=== PATIENT | female | born 1960 | race Caucasian/White ===

== ENCOUNTER 2016-09-12 18:55 | Emergency (ER) | payer MEDICARE, OTHER ==
[2016-09-12 19:12] VITALS: BP 130/69; PULSE 79; TEMP 98.5; BMI 26.2
[2016-09-12 20:07] LABS: BASOPHIL 1.1 % (0-2.0); EOSINOPHIL 1.5 % (0-4.5); MCH 30.4 pg (25.7-33.7); MCHC 33.7 g/dl (32.0-36.0); MEAN CELL VOLUME 90.1 fl (80-96); MEAN PLT VOLUME 9.1 fl (7.5-11.1); PLATELET COUNT 212 K/MM3 (134-434); RDW 14.3 % (11.6-15.6); WHITE BLOOD COUNT 6.7 K/mm3 (4.0-10.0)
[2016-09-12 20:08] LABS: URINE APPEARANCE CLEAR; URINE BILIRUBIN NEGATIVE (NEGATIVE); URINE BLOOD NEGATIVE (NEGATIVE); URINE COLOR COLORLESS; URINE GLUCOSE (UA) NEGATIVE (NEGATIVE); URINE KETONE NEGATIVE (NEGATIVE); URINE LEUK ESTERASE NEGATIVE (NEGATIVE); URINE NITRITE NEGATIVE (NEGATIVE); URINE PROTEIN NEGATIVE (NEGATIVE); URINE UROBILINOGEN NEGATIVE E.U./dl (0.2-1.0)
[2016-09-12] MEDS ORDERED: METOCLOPRAMIDE HCL INJECTION 10 MG/2 ML VIAL IVPB ONE (20:12)
[2016-09-12] MEDS ORDERED: SODIUM CHLORIDE 0.9% 1000 ML INFUS.BAG IV ONE (20:12)
[2016-09-12] MEDS ORDERED: KETOROLAC TROMETHAMINE 30 MG/1 ML VIAL IVPUSH ONE (20:12)
[2016-09-12] MEDS ORDERED: KETOROLAC TROMETHAMINE 30 MG/1 ML VIAL ONE (20:21)
[2016-09-12] MEDS ORDERED: METOCLOPRAMIDE HCL INJECTION 10 MG/2 ML VIAL ONE (20:21)
[2016-09-12 20:24] LABS: ALBUMIN 3.8 g/dl (3.4-5.0); ALK PHOS 83 U/L (45-117); ANION GAP 8 (8-16); BILIRUBIN,TOTAL 0.3 mg/dL (0.2-1.0); CALCIUM 9.2 mg/dL (8.5-10.1); CO2 27 mmol/L (21-32); CREATININE 0.7 mg/dL (0.55-1.02); GLUCOSE,RANDOM 94 mg/dL (74-106); SGOT/AST 18 U/L (15-37); SGPT/ALT 23 U/L (12-78); TOT PROT 6.8 g/dl (6.4-8.2)
--- NOTE | 2016-09-12 20:28 | PDOC ---
History of Present Illness - General Chief Complaint: Migraine Headache Stated Complaint: MIGRAINE HEADACHE Time Seen by Provider: 09/12/16 19:39 History Source: Patient Exam Limitations: No Limitations - History of Present Illness Initial Comments: 09/12/16 20:26 Patient is a 56-year-old female with history of hernia, migraine, GERD, BTL, complains of right-sided headache since last night. Currently the pain is 10/10 , throbbing, right retro-orbital radiates but was gradual onset after having a stressful event last night. Now has nausea, photophobia, phonophobia. Describes symptoms as her typical migraine. She took her Firocet at 7 PM today and 2 PM without relief of symptoms. PMD: Dr. Mercedes PMHX: as above PSocHX: Negative drugs, alcohol, cigarettes PFamHX: Noncontributory to this exam ALL: Flexeril GENERAL/CONSTITUTIONAL: [No fever or chills. No weakness. No weight change.] HEAD, EYES, EARS, NOSE AND THROAT: [No change in vision. No ear pain or discharge. No sore throat.] CARDIOVASCULAR: [No chest pain or shortness of breath.] RESPIRATORY: [No cough, wheezing, or hemoptysis.] GASTROINTESTINAL: (+) nausea, (-) vomiting, diarrhea or constipation. No rectal bleeding.] GENITOURINARY: [No dysuria, frequency, or change in urination.] MUSCULOSKELETAL: [No joint or muscle swelling or pain. No neck or back pain.] SKIN AND BREASTS: [No rash or easy bruising.] NEUROLOGIC: (+) headache, (+) vertigo, (-) loss of consciousness, or loss of sensation.] PSYCHIATRIC: [No depression or anxiety.] ENDOCRINE: [No increased thirst. No abnormal weight change.] HEMATOLOGIC/LYMPHATIC: [No anemia, easy bleeding, or history of blood clots.] ALLERGIC/IMMUNOLOGIC: [No hives or skin allergy. No latex allergy.] GENERAL: [The patient is awake, alert, and fully oriented, in no acute distress. ] HEAD: [Normal with no signs of trauma.] EYES: [Pupils equal, round and reactive to light, extraocular movements intact, sclera anicteric, conjunctiva clear.] ENT: [Ears normal, nares patent, oropharynx clear without exudates. Moist mucous membranes.] NECK: [Normal range of motion, supple without lymphadenopathy, JVD, or masses.] LUNGS: [Breath sounds equal, clear to auscultation bilaterally. No wheezes, and no crackles.] HEART: [Regular rate and rhythm, normal S1 and S2 without murmur, rub.] ABDOMEN: [Soft, nontender, normoactive bowel sounds. No guarding, no rebound. No masses.] EXTREMITIES: [Normal range of motion, no edema. No clubbing or cyanosis. No cords, erythema, or tenderness.] NEUROLOGICAL: [Cranial nerves II through XII grossly intact. Normal speech, normal gait, cerebellar function intact, nl finger to nose, 5/5 strength] PSYCH: [Normal mood, normal affect.] SKIN: [Warm, Dry, normal turgor, no rashes or lesions noted.] Past History - Past Medical History Allergies/Adverse Reactions: Allergies Allergy/AdvReac Type Severity Reaction Status Date / Time cyclobenzaprine HCl Allergy Severe near Verified 09/12/16 19:08 [From Flexeril] syncope Home Medications: Ambulatory Orders Acetaminophen/Caffeine/Butalb [Fioricet -] 1 tab PO Q6H PRN #20 tablet 10/20/15 Omeprazole 20 mg PO DAILY 03/13/16 Anemia: Yes Asthma: Yes Cancer: No Cardiac Disorders: Yes (ANGINA) CVA: No COPD: No CHF: No Dementia: No Diabetes: No GI Disorders: Yes (hiatal hernia,GASTRITIS, ulcer) Disorders: No HTN: No Hypercholesterolemia: No Liver Disease: No Suicide Attempt (Hx): No Seizures: No Thyroid Disease: No - Surgical History Abdominal Surgery: Yes (hernia) Appendectomy: No Cardiac Surgery: No Cholecystectomy: No Lung Surgery: No Neurologic Surgery: No Orthopedic Surgery: No - Immunization History Td Vaccination: Yes TDAP Vaccination: No Immunization Up to Date: Yes - Psycho/Social/Smoking Cessation Hx Anxiety: No Suicidal Ideation: No Smoking Status: No Smoking History: Never smoked Years of Tobacco Use: 0 Have you smoked in the past 12 months: No Number of Cigarettes Smoked Daily: 0 Cigars Per Day: 0 Hx Alcohol Use: No Drug/Substance Use Hx: No Substance Use Type: None Hx Substance Use Treatment: No Neuro Specific PMHX - Complaint Specific PMHX Migraine: Yes *Physical Exam - Vital Signs Last Vital Signs Temp Pulse Resp BP Pulse Ox 98.5 F 79 18 130/69 98 09/12/16 19:10 09/12/16 19:10 09/12/16 19:10 09/12/16 19:10 09/12/16 19:10 ED Treatment Course - LABORATORY CBC & Chemistry Diagram: 09/12/16 19:50 09/12/16 19:50 - ADDITIONAL ORDERS Additional order review: Laboratory Results 09/12/16 19:20 Urine Color Colorless Urine Appearance Clear Urine pH 6.0 Ur Specific [place] 1.003 Urine Protein Negative Urine Glucose (UA) Negative Urine Ketones Negative Urine Blood Negative Urine Nitrite Negative Urine Bilirubin Negative Urine Urobilinogen Negative Ur Leukocyte Esterase Negative 09/12/16 19:50 RBC 4.41 MCV 90.1 MCHC 33.7 RDW 14.3 MPV 9.1 Neutrophils % 65.0 Lymphocytes % 26.1 Monocytes % 6.3 Eosinophils % 1.5 Basophils % 1.1 - Medications Given in the ED: ED Medications Discontinued Medications Generic Name Dose Route Start Last Admin Trade Name Michelle PRN Reason Stop Dose Admin Ketorolac Tromethamine 30 mg 09/12/16 20:12 09/12/16 20:19 Toradol Injection - IVPUSH 09/12/16 20:13 30 mg ONCE ONE Administration Metoclopramide HCl 10 mg 09/12/16 20:12 09/12/16 20:19 Reglan Injection - IVPB 09/12/16 20:13 10 mg ONCE ONE Administration Sodium Chloride 1,000 ml 09/12/16 20:12 09/12/16 20:19 Normal Saline - IV 09/12/16 20:13 1,000 ml ONCE ONE Administration Medical Decision Making - Medical Decision Making 09/12/16 20:44 Patient is a 56-year-old female with history of hernia, migraine, GERD, BTL, complains of right-sided headache since last night, describes as typical migraine symptoms will treat as such with Toradol 30 mg IV, Reglan 10 mg IV, IV fluids 09/12/16 21:40 Patient states symptoms are totally resolved and wishes to go home. neurologically intact I discussed the physical exam findings, ancillary test results and final diagnoses with the patient. I answered all of the patient's questions. The patient was satisfied with the care received and felt comfortable with the discharge plan and treatment plan. The Patient agrees to follow up with the primary care physician within 24-72 hours. *DC/Admit/Observation/Transfer Diagnosis at time of Disposition: Migraine Qualifiers: Migraine type: unspecified Status migrainosus presence: with status migrainosus Intractability: not intractable Qualified Code(s): G43.901 - Migraine, unspecified, not intractable, with status migrainosus - Discharge Dispostion Disposition: HOME Condition at time of disposition: Stable - Referrals Referrals: Rivera Mercedes MD [Primary Care Provider] - - Patient Instructions Printed Discharge Instructions: DI for Migraine Additional Instructions: Your Discharge Instructions: You must call primary care physician within 24 hours to arrange follow-up. Return to the Emergency Department with any new, persistent or worsening symptoms, for fever, chills, SOB, dizziness or any other concerning changes that may occur.
--- NOTE | 2016-09-12 21:13 | PDOC ---
*Physical Exam - Vital Signs Last Vital Signs Temp Pulse Resp BP Pulse Ox 98.5 F 79 18 130/69 98 09/12/16 19:10 09/12/16 19:10 09/12/16 19:10 09/12/16 19:10 09/12/16 19:10 ED Treatment Course - LABORATORY CBC & Chemistry Diagram: 09/12/16 19:50 09/12/16 19:50 - ADDITIONAL ORDERS Additional order review: Laboratory Results 09/12/16 09/12/16 19:50 19:20 Sodium 142 Potassium 4.3 Chloride 107 Carbon Dioxide 27 Anion Gap 8 BUN 12 Creatinine 0.7 Creat Clearance w eGFR > 60 Random Glucose 94 Calcium 9.2 Total Bilirubin 0.3 D AST 18 ALT 23 D Alkaline Phosphatase 83 D Total Protein 6.8 Albumin 3.8 Urine Color Colorless Urine Appearance Clear Urine pH 6.0 Ur Specific [place] 1.003 Urine Protein Negative Urine Glucose (UA) Negative Urine Ketones Negative Urine Blood Negative Urine Nitrite Negative Urine Bilirubin Negative Urine Urobilinogen Negative Ur Leukocyte Esterase Negative 09/12/16 19:50 RBC 4.41 MCV 90.1 MCHC 33.7 RDW 14.3 MPV 9.1 Neutrophils % 65.0 Lymphocytes % 26.1 Monocytes % 6.3 Eosinophils % 1.5 Basophils % 1.1 - Medications Given in the ED: ED Medications Discontinued Medications Generic Name Dose Route Start Last Admin Trade Name Davidq PRN Reason Stop Dose Admin Ketorolac Tromethamine 30 mg 09/12/16 20:12 09/12/16 20:19 Toradol Injection - IVPUSH 09/12/16 20:13 30 mg ONCE ONE Administration Metoclopramide HCl 10 mg 09/12/16 20:12 09/12/16 20:19 Reglan Injection - IVPB 09/12/16 20:13 10 mg ONCE ONE Administration Sodium Chloride 1,000 ml 09/12/16 20:12 09/12/16 20:19 Normal Saline - IV 09/12/16 20:13 1,000 ml ONCE ONE Administration Medical Decision Making - Medical Decision Making 09/12/16 21:12 agree with care from ALEX Cochran *DC/Admit/Observation/Transfer Diagnosis at time of Disposition: Migraine - Discharge Dispostion Disposition: HOME Condition at time of disposition: Stable - Referrals Referrals: Mercedes,Rivera R, MD [Primary Care Provider] - - Patient Instructions Printed Discharge Instructions: DI for Migraine Additional Instructions: Your Discharge Instructions: You must call primary care physician within 24 hours to arrange follow-up. Return to the Emergency Department with any new, persistent or worsening symptoms, for fever, chills, SOB, dizziness or any other concerning changes that may occur.
== END 2016-09-12 21:45 | disposition home or self-care (01) ==
LOC: JER 18:55
PROC: 3E033GC Introduction of Other Therapeutic Substance into Peripheral Vein, Percutaneous Approach (ICD-10-PCS; principal; 2016-09-12)
PROC: 3E0333Z Introduction of Anti-inflammatory into Peripheral Vein, Percutaneous Approach (ICD-10-PCS; 2016-09-12)
DX: G43.901 Migraine, unspecified, not intractable, with status migrainosus (principal)
CPT/HCPCS: 36415; 80053; 81003; 85025; 96374; 96375; 99282-25

== ENCOUNTER 2016-09-30 11:26 | Emergency (ER) | payer MEDICARE, OTHER ==
[2016-09-30 11:42] VITALS: BP 120/77; PULSE 93; TEMP 98; BMI 25.5
[2016-09-30] MEDS ORDERED: FAMOTIDINE 20 MG/50 ML IVPB 50 ML IVPB ONE (13:33)
[2016-09-30] MEDS ORDERED: SODIUM CHLORIDE 1,000 ML IV STA (13:33)
[2016-09-30] MEDS ORDERED: ONDANSETRON 4 MG/2 ML VIAL IVPUSH ONE (13:33)
--- NOTE | 2016-09-30 13:34 | PDOC ---
History of Present Illness - General History Source: Patient Exam Limitations: No Limitations - History of Present Illness Initial Comments: CHIEF COMPLAINT: 56 y/o afebrile female with PMH GI ulcer (healed), migraine HAs c/o abdominal pain since last night. HISTORY OF PRESENT ILLNESS: The patient states last night she began having abdominal pain. She admits to nausea and multiple episodes of diarrhea. She did take her Omeprazole which seemed to help a little bit. She denies fever, chills, cough, runny nose, vomiting, CP, SOB, back pain, hematuria, dysuria. Vital signs on arrival are within normal limits. REVIEW OF SYSTEMS: GENERAL/CONSTITUTIONAL: No fever/chills. No weakness. No weight change. HEAD, EYES, EARS, NOSE AND THROAT: No change in vision. No ear pain or discharge. No sore throat. CARDIOVASCULAR: No chest pain or shortness of breath. RESPIRATORY: No cough, wheezing, or hemoptysis. GASTROINTESTINAL: +nausea, diarrhea and abd pain. No vomiting. GENITOURINARY: No dysuria, frequency, or change in urination. MUSCULOSKELETAL: No joint or muscle swelling or pain. No neck or back pain. SKIN: No rash or easy bruising. NEUROLOGIC: No headache, vertigo, loss of consciousness, or loss of sensation. PHYSICAL EXAM: GENERAL: The patient is awake, alert, and fully oriented, in no acute distress. She is well appearing and ambulatory. HEAD: Normal with no signs of trauma. ENT: Pupils equal, round and reactive to light, extraocular movements intact, sclera anicteric, conjunctiva clear. Neck supple. LUNGS: Clear to auscultation bilaterally. Normal excursion. No respiratory distress or use of accessory muscles. CV: RRR, S1/S2, no MRG. Cap refill < 2 sec. ABDOMEN: Soft, non-distended, TTP of RUQ with positive Morales's sign. No rebound, guarding, rigidity. EXTREMITIES: Normal range of motion, no edema. NEUROLOGICAL: Normal speech, normal gait. CN II-XII grossly intact. PSYCH: Normal mood, normal affect. SKIN: Warm, dry, normal turgor, no rashes or lesions noted. <Lilian Garner - Last Filed: 09/30/16 16:07> <Jamee Mckenna - Last Filed: 10/01/16 15:19> - General Chief Complaint: Pain Stated Complaint: ABD PAIN Time Seen by Provider: 09/30/16 13:11 Past History - Past Medical History Anemia: Yes Asthma: Yes Cancer: No Cardiac Disorders: Yes (ANGINA) CVA: No COPD: No CHF: No Dementia: No Diabetes: No GI Disorders: Yes (hiatal hernia,GASTRITIS, ulcer) Disorders: No HTN: No Hypercholesterolemia: No Liver Disease: No Suicide Attempt (Hx): No Seizures: No Thyroid Disease: No - Surgical History Abdominal Surgery: Yes (hernia) Appendectomy: No Cardiac Surgery: No Cholecystectomy: No Lung Surgery: No Neurologic Surgery: No Orthopedic Surgery: No - Immunization History Td Vaccination: Yes TDAP Vaccination: No Immunization Up to Date: Yes - Psycho/Social/Smoking Cessation Hx Anxiety: No Suicidal Ideation: No Smoking Status: No Smoking History: Never smoked Years of Tobacco Use: 0 Have you smoked in the past 12 months: No Number of Cigarettes Smoked Daily: 0 Cigars Per Day: 0 Information on smoking cessation initiated: No Hx Alcohol Use: No Drug/Substance Use Hx: No Substance Use Type: None Hx Substance Use Treatment: No <Lilian Garner - Last Filed: 09/30/16 16:07> <Jamee Mckenna - Last Filed: 10/01/16 15:19> - Past Medical History Allergies/Adverse Reactions: Allergies Allergy/AdvReac Type Severity Reaction Status Date / Time cyclobenzaprine HCl Allergy Severe near Verified 09/30/16 11:38 [From Flexeril] syncope Home Medications: Ambulatory Orders Acetaminophen/Caffeine/Butalb [Fioricet -] 1 tab PO Q6H PRN #20 tablet 10/20/15 Omeprazole 40 mg PO DAILY 03/13/16 Famotidine [Pepcid -] 20 mg PO BID #14 tablet 09/30/16 Sucralfate [Carafate -] 1 gm PO QID #28 tablet 09/30/16 *Physical Exam - Vital Signs Last Vital Signs Temp Pulse Resp BP Pulse Ox 98.0 F 93 H 18 120/77 98 09/30/16 11:39 09/30/16 11:39 09/30/16 11:39 09/30/16 11:39 09/30/16 11:39 <Lilian Garner - Last Filed: 09/30/16 16:07> - Vital Signs Last Vital Signs Temp Pulse Resp BP Pulse Ox 98.0 F 93 H 18 120/77 98 09/30/16 11:39 09/30/16 11:39 09/30/16 11:39 09/30/16 11:39 09/30/16 11:39 <Jamee Mckenna - Last Filed: 10/01/16 15:19> ED Treatment Course - LABORATORY CBC & Chemistry Diagram: 09/30/16 13:49 09/30/16 13:49 <Lilian Garner - Last Filed: 09/30/16 16:07> - LABORATORY CBC & Chemistry Diagram: 09/30/16 13:49 09/30/16 13:49 - ADDITIONAL ORDERS Additional order review: 09/30/16 13:49 RBC 4.63 MCV 91.1 MCHC 33.4 RDW 14.3 MPV 8.7 Neutrophils % 90.9 H D Lymphocytes % 5.1 L D Monocytes % 3.1 L Eosinophils % 0.4 Basophils % 0.5 - Medications Given in the ED: ED Medications Discontinued Medications Generic Name Dose Route Start Last Admin Trade Name Freq PRN Reason Stop Dose Admin Famotidine/Sodium Chloride 50 mls @ 100 mls/hr 09/30/16 13:33 09/30/16 14:03 Pepcid 20 Mg Premixed Ivpb - IVPB 09/30/16 14:02 100 mls/hr ONCE ONE Administration Sodium Chloride 1,000 mls @ 1,000 mls/hr 09/30/16 13:33 09/30/16 14:03 Normal Saline - IV 09/30/16 14:32 1,000 mls/hr ASDIR STA Administration Ondansetron HCl 4 mg 09/30/16 13:33 09/30/16 14:03 Zofran Injection IVPUSH 09/30/16 13:34 4 mg ONCE ONE Administration <Jamee Mckenna - Last Filed: 10/01/16 15:19> Medical Decision Making - Medical Decision Making A/P: 56 y/o afebrile female with possible gallstones/cholecystitis. Plan is as follows: 1. Labs 2. IV fluids 3. Gallbladder ultrasound 4. IV toradol 5. IV zofran 6. IV pepcid Gallbladder ultrasound IMPRESSION: No sonographic evidence of acute biliary pathology. Labs unremarkable. The patient states she feels much better and wants to go home. She states it was pain similar to when she had an ulcer in the past. Will d/c to home with rx for pepcid and carafate. She has an appointment scheduled to see Dr. Pérez in October which I strongly encouraged her to keep. Suggested she return to the ER immediately with any worsening or concerning symptoms. The patient verbalizes understanding of all instructions, has no further questions and is awaiting discharge. <Lilian Garner - Last Filed: 09/30/16 16:07> *DC/Admit/Observation/Transfer <Lilian Garner - Last Filed: 09/30/16 16:07> - Attestations Physician Attestion: I reviewed the case with the mid-level practitioner and agree with the mid- level practitioner's assessment, diagnosis and disposition. <Jamee Mckenna - Last Filed: 10/01/16 15:19> Diagnosis at time of Disposition: Right upper quadrant abdominal pain, Nausea Diarrhea Qualifiers: Diarrhea type: unspecified type Qualified Code(s): R19.7 - Diarrhea, unspecified - Discharge Dispostion Disposition: HOME Condition at time of disposition: Improved - Prescriptions Prescriptions: Sucralfate [Carafate -] 1 gm PO QID #28 tablet Famotidine [Pepcid -] 20 mg PO BID #14 tablet - Referrals Referrals: Rivera Mercedes MD [Primary Care Provider] - Deepak Pérez MD [Staff Physician] - (Keep your appointment scheduled for October) - Patient Instructions Printed Discharge Instructions: DI for Abdominal Pain-Adult Additional Instructions: Discharge Instructions: -Take medications as prescribed -Keep your appointment with Dr. Pérez scheduled for October -Return to the ER with any worsening or concerning symptoms.
[2016-09-30 13:52] LABS: BASOPHIL 0.5 % (0-2.0); EOSINOPHIL 0.4 % (0-4.5); MCH 30.4 pg (25.7-33.7); MCHC 33.4 g/dl (32.0-36.0); MEAN CELL VOLUME 91.1 fl (80-96); MEAN PLT VOLUME 8.7 fl (7.5-11.1); NEUTROPHILS 90.9 % (42.8-82.8); PLATELET COUNT 176 K/MM3 (134-434); RDW 14.3 % (11.6-15.6); WHITE BLOOD COUNT 9.4 K/mm3 (4.0-10.0)
[2016-09-30 14:10] LABS: URINE APPEARANCE CLEAR; URINE BILIRUBIN NEGATIVE (NEGATIVE); URINE BLOOD NEGATIVE (NEGATIVE); URINE COLOR YELLOW; URINE GLUCOSE (UA) NEGATIVE (NEGATIVE); URINE KETONE NEGATIVE (NEGATIVE); URINE LEUK ESTERASE NEGATIVE (NEGATIVE); URINE NITRITE NEGATIVE (NEGATIVE); URINE UROBILINOGEN NEGATIVE E.U./dl (0.2-1.0)
[2016-09-30 14:14] LABS: URINE PROTEIN 1+ (NEGATIVE)
[2016-09-30 14:18] LABS: ALBUMIN 3.8 g/dl (3.4-5.0); ALK PHOS 65 U/L (45-117); ANION GAP 10 (8-16); BILIRUBIN,TOTAL 0.5 mg/dL (0.2-1.0); CALCIUM 8.6 mg/dL (8.5-10.1); CO2 27 mmol/L (21-32); CREATININE 0.9 mg/dL (0.55-1.02); GLUCOSE,RANDOM 152 mg/dL (74-106); SGOT/AST 17 U/L (15-37); SGPT/ALT 24 U/L (12-78); TOT PROT 7.2 g/dl (6.4-8.2)
[2016-09-30 14:23] LABS: URINE BACTERIA RARE /hpf (NONE SEEN); URINE HYALINE CAST 6 /lpf; URINE MUCUS MODERATE; URINE RBC 2 /hpf (0-3); URINE WBC 2 /hpf (3-5)
== END 2016-09-30 16:35 | disposition home or self-care (01) ==
LOC: JER 11:26
PROC: 3E033GC Introduction of Other Therapeutic Substance into Peripheral Vein, Percutaneous Approach (ICD-10-PCS; principal; 2016-09-30)
DX: R10.11 Right upper quadrant pain (principal); R11.0 Nausea; R19.7 Diarrhea, unspecified; G43.909 Migraine, unspecified, not intractable, without status migrainosus; Z86.79 Personal history of other diseases of the circulatory system; Z87.19 Personal history of other diseases of the digestive system
CPT/HCPCS: 36415; 76705-TC; 80053; 81003; 81015; 83690; 85025; 87086; 96365; 96375; 99283-25

== ENCOUNTER 2016-12-30 09:50 | Emergency (ER) | payer MEDICARE, OTHER ==
[2016-12-30 10:00] VITALS: BP 111/60; PULSE 74; TEMP 98.2; BMI 21.9
--- NOTE | 2016-12-30 11:04 | PDOC ---
History of Present Illness - General Chief Complaint: Pain Stated Complaint: LT THUMB PAIN Time Seen by Provider: 12/30/16 10:22 History Source: Patient Exam Limitations: No Limitations - History of Present Illness Initial Comments: 12/30/16 15:30 states 3 weeks ago fell and hyperextended left thumb. States is been painful since that time. Denies numbness or tingling to hand although feels that has weakness and mild instability to grasp mechanism. Has not sought any medical attention for same. Occurred: reports: just prior to arrival Severity: reports: mild, moderate Pain Location: reports: upper extremity (left thumb/hand) Associated Symptoms (Fall): denies symptoms Past History - Travel Traveled outside of the country in the last 30 days: No Close contact w/someone who was outside of country & ill: No - Past Medical History Allergies/Adverse Reactions: Allergies Allergy/AdvReac Type Severity Reaction Status Date / Time cyclobenzaprine HCl Allergy Severe near Verified 12/30/16 09:57 [From Flexeril] syncope Home Medications: Ambulatory Orders Acetaminophen/Caffeine/Butalb [Fioricet -] 1 tab PO Q6H PRN #20 tablet 10/20/15 Omeprazole 40 mg PO DAILY 03/13/16 Famotidine [Pepcid -] 20 mg PO BID #14 tablet 09/30/16 Sucralfate [Carafate -] 1 gm PO QID #28 tablet 09/30/16 Anemia: Yes Asthma: Yes Cancer: No Cardiac Disorders: Yes (ANGINA) CVA: No COPD: No CHF: No Dementia: No Diabetes: No GI Disorders: Yes (hiatal hernia,GASTRITIS, ulcer) Disorders: No HTN: No Hypercholesterolemia: No Liver Disease: No Suicide Attempt (Hx): No Seizures: No Thyroid Disease: No - Surgical History Abdominal Surgery: Yes (hernia) Appendectomy: No Cardiac Surgery: No Cholecystectomy: No Lung Surgery: No Neurologic Surgery: No Orthopedic Surgery: No - Immunization History Td Vaccination: Yes TDAP Vaccination: No Immunization Up to Date: Yes - Psycho/Social/Smoking Cessation Hx Anxiety: No Suicidal Ideation: No Smoking Status: No Smoking History: Never smoked Years of Tobacco Use: 0 Have you smoked in the past 12 months: No Number of Cigarettes Smoked Daily: 0 Cigars Per Day: 0 Information on smoking cessation initiated: No Hx Alcohol Use: No Drug/Substance Use Hx: No Substance Use Type: None Hx Substance Use Treatment: No Trauma Specific PMHX - Complaint Specific PMHX Back Injury: No Neck Injury: No Review of Systems - Review of Systems Able to Perform ROS?: Yes Is the patient limited [place]ian proficient: Yes Constitutional: Yes: See HPI. No: Symptoms Reported, Malaise HEENTM: No: Symptoms Reported Musculoskeletal: Yes: Symptoms Reported, See HPI, Joint Pain, Joint Swelling Integumentary: No: Symptoms Reported All Other Systems: Reviewed and Negative *Physical Exam - Vital Signs Last Vital Signs Temp Pulse Resp BP Pulse Ox 98.2 F 74 18 111/60 99 12/30/16 09:57 12/30/16 09:57 12/30/16 09:57 12/30/16 09:57 12/30/16 09:57 - Physical Exam General Appearance: Yes: Nourished, Appropriately Dressed, Apparent Distress HEENT: positive: RONN, Normal ENT Inspection, TMs Normal, Pharynx Normal, Rhinorrhea, Sinus Tenderness Neck: positive: Supple. negative: Tender, Lymphadenopathy (R), Lymphadenopathy (L) Respiratory/Chest: positive: Lungs Clear, Normal Breath Sounds Cardiovascular: positive: Regular Rhythm Gastrointestinal/Abdominal: positive: Soft. negative: Tender Extremity: positive: Normal Capillary Refill, Normal Inspection, Normal Range of Motion (patient with tenderness at IP joint, range of motion flexion and extension is painful however no crepitus or step-offs), Tender Integumentary: positive: Dry, Warm, Pale, Swelling, Ecchymosis Neurologic: positive: breakdown person II-XII NML intact, Fully Oriented, Alert, Normal Mood/ Affect, Normal Response, Motor Strength 5/5 ED Treatment Course - RADIOLOGY Radiology Studies Ordered: Category Date Time Status WRIST W/HAND-LEFT* [RAD] Stat Radiology 12/30/16 10:34 Taken Progress Note - Progress Note Progress Note: Left thumb sprain, Jose wrap applied, x-ray negative for fractures or dislocation. Will follow-up with hand specialist *DC/Admit/Observation/Transfer Diagnosis at time of Disposition: Sprain of hand, thumb, left Qualifiers: Encounter type: initial encounter Sprain of finger site: interphalangeal joint Qualified Code(s): S63.622A - Sprain of interphalangeal joint of left thumb, initial encounter - Discharge Dispostion Disposition: HOME Condition at time of disposition: Stable Admit: No - Referrals Referrals: Rivera Mercedes MD [Primary Care Provider] - - Patient Instructions Printed Discharge Instructions: DI for Ulnar Collateral Ligament Sprain of Thumb Additional Instructions: Rest, ice to area on and off for 15 minutes 4-6 times a day Avoid heavy lifting or exercise until pain and swelling is resolved or until further directed Keep area highly elevated to reduce swelling Use splints/Jose wrap as directed Followup with orthopedist in one to 2 days if not improving, if significantly improved may wait one week for followup with orthopedist May use ibuprofen 2-200 mg tablets every 6 hours as needed for pain
--- NOTE | 2016-12-30 11:28 | PDOC ---
History of Present Illness - General Chief Complaint: Pain Stated Complaint: LT THUMB PAIN Time Seen by Provider: 12/30/16 10:22 History Source: Patient Exam Limitations: No Limitations - History of Present Illness Initial Comments: 3 weeks ago patient complains of falling and hyperextending her left thumb. States is been painful since that time, and worries may have some ligamentous injury. Did not have any follow-up or evaluation Occurred: reports: other (3 week) Pain Location: reports: none Modifying Factors: improves with: cold therapy Loss of Consciousness: no loss of consciousness Associated Symptoms (Fall): denies symptoms Past History - Travel Traveled outside of the country in the last 30 days: No Close contact w/someone who was outside of country & ill: No - Past Medical History Allergies/Adverse Reactions: Allergies Allergy/AdvReac Type Severity Reaction Status Date / Time cyclobenzaprine HCl Allergy Severe near Verified 12/30/16 09:57 [From Flexeril] syncope Home Medications: Ambulatory Orders Acetaminophen/Caffeine/Butalb [Fioricet -] 1 tab PO Q6H PRN #20 tablet 10/20/15 Omeprazole 40 mg PO DAILY 03/13/16 Famotidine [Pepcid -] 20 mg PO BID #14 tablet 09/30/16 Sucralfate [Carafate -] 1 gm PO QID #28 tablet 09/30/16 Anemia: Yes Asthma: Yes Cancer: No Cardiac Disorders: Yes (ANGINA) CVA: No COPD: No CHF: No Dementia: No Diabetes: No GI Disorders: Yes (hiatal hernia,GASTRITIS, ulcer) Disorders: No HTN: No Hypercholesterolemia: No Liver Disease: No Suicide Attempt (Hx): No Seizures: No Thyroid Disease: No - Surgical History Abdominal Surgery: Yes (hernia) Appendectomy: No Cardiac Surgery: No Cholecystectomy: No Lung Surgery: No Neurologic Surgery: No Orthopedic Surgery: No - Immunization History Td Vaccination: Yes TDAP Vaccination: No Immunization Up to Date: Yes - Psycho/Social/Smoking Cessation Hx Anxiety: No Suicidal Ideation: No Smoking Status: No Smoking History: Never smoked Years of Tobacco Use: 0 Have you smoked in the past 12 months: No Number of Cigarettes Smoked Daily: 0 Cigars Per Day: 0 Information on smoking cessation initiated: No Hx Alcohol Use: No Drug/Substance Use Hx: No Substance Use Type: None Hx Substance Use Treatment: No Review of Systems - Review of Systems Able to Perform ROS?: Yes Is the patient limited Syrian proficient: Yes Constitutional: Yes: Symptoms Reported, See HPI, Malaise HEENTM: Yes: Symptoms Reported Respiratory: Yes: Symptoms reported, See HPI Musculoskeletal: Yes: Symptoms Reported, Joint Pain, Joint Swelling (IP joint to left hand) All Other Systems: Reviewed and Negative *Physical Exam - Vital Signs Last Vital Signs Temp Pulse Resp BP Pulse Ox 98.2 F 74 18 111/60 99 12/30/16 09:57 12/30/16 09:57 12/30/16 09:57 12/30/16 09:57 12/30/16 09:57 - Physical Exam General Appearance: Yes: Nourished, Appropriately Dressed. No: Apparent Distress HEENT: positive: RONN, Normal ENT Inspection, TMs Normal, Pharynx Normal Neck: positive: Supple. negative: Tender Respiratory/Chest: positive: Lungs Clear, Normal Breath Sounds Extremity: positive: Normal Capillary Refill. negative: Normal Range of Motion (limited range of motion secondary to tenderness at IP joint of left thumb, able to flex and extend but flexion against resistance reproduces pain at the IP joint. 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, Fully Oriented, Alert, Normal Mood/ Affect, Normal Response, Motor Strength 5/5 *DC/Admit/Observation/Transfer Diagnosis at time of Disposition: Sprain of hand, thumb, left Qualifiers: Encounter type: initial encounter Sprain of finger site: interphalangeal joint Qualified Code(s): S63.622A - Sprain of interphalangeal joint of left thumb, initial encounter - Discharge Dispostion Disposition: HOME Condition at time of disposition: Stable Admit: No - Referrals Referrals: Rivera Mercedes MD [Primary Care Provider] - - Patient Instructions Printed Discharge Instructions: DI for Ulnar Collateral Ligament Sprain of Thumb Additional Instructions: Rest, ice to area on and off for 15 minutes 4-6 times a day Avoid heavy lifting or exercise until pain and swelling is resolved or until further directed Keep area highly elevated to reduce swelling Use splints/Jose wrap as directed Followup with orthopedist in one to 2 days if not improving, if significantly improved may wait one week for followup with orthopedist May use ibuprofen 2-200 mg tablets every 6 hours as needed for pain
== END 2016-12-30 11:34 | disposition home or self-care (01) ==
LOC: JERFT 09:50
DX: S63.622A Sprain of interphalangeal joint of left thumb, initial encounter (principal); X50.9XXA Other and unspecified overexertion or strenuous movements or postures, initial encounter; Y93.89 Activity, other specified; Y92.89 Other specified places as the place of occurrence of the external cause; D64.9 Anemia, unspecified; J45.909 Unspecified asthma, uncomplicated
CPT/HCPCS: 73110-TC-LT; 73130-TC-LT; 99281-25

== ENCOUNTER 2017-01-09 08:23 | Emergency (ER) | payer MEDICARE, OTHER ==
[2017-01-09 08:36] VITALS: BP 122/77; PULSE 76; TEMP 97.9; BMI 25.8
[2017-01-09] MEDS ORDERED: KETOROLAC TROMETHAMINE 60 MG/2 ML VIAL IM ONE (09:28)
--- NOTE | 2017-01-09 09:32 | PDOC ---
History of Present Illness - General Chief Complaint: Back Pain Stated Complaint: LOWER BACK INJURY Time Seen by Provider: 01/09/17 09:12 History Source: Patient Exam Limitations: No Limitations - History of Present Illness Initial Comments: 01/09/17 09:28 56 yr female history of herniated disc to lumbar spine states sunday she was doing push ups against the wall and suffered low back paingetting worse. pt denies direct trauma. Pt did not take nay meds for pain states she is unable to take NSAIDS due to GERD. allergy to flexeril. Pt has been applying topical lidocaine cream. Pt denies urinary or bowel dysfunction. Severity: reports: moderate Pain Location: reports: back Modifying Factors: improves with: None Loss of Consciousness: no loss of consciousness Associated Symptoms (Fall): denies symptoms Past History - Past Medical History Allergies/Adverse Reactions: Allergies Allergy/AdvReac Type Severity Reaction Status Date / Time cyclobenzaprine HCl Allergy Severe near Verified 01/09/17 08:36 [From Flexeril] syncope Home Medications: Ambulatory Orders Acetaminophen/Caffeine/Butalb [Fioricet -] 1 tab PO Q6H PRN #20 tablet 10/20/15 Omeprazole 40 mg PO DAILY 03/13/16 Famotidine [Pepcid -] 20 mg PO BID #14 tablet 09/30/16 Sucralfate [Carafate -] 1 gm PO QID #28 tablet 09/30/16 Anemia: Yes Asthma: Yes Cancer: No Cardiac Disorders: Yes (ANG[place]) CVA: No COPD: No CHF: No Dementia: No Diabetes: No GI Disorders: Yes (hiatal hernia,GASTRITIS, ulcer) Disorders: No HTN: No Hypercholesterolemia: No Liver Disease: No Suicide Attempt (Hx): No Seizures: No Thyroid Disease: No Other medical history: Arthritis - Surgical History Abdominal Surgery: Yes (hernia) Appendectomy: No Cardiac Surgery: No Cholecystectomy: No Lung Surgery: No Neurologic Surgery: No Orthopedic Surgery: No - Immunization History Td Vaccination: Yes TDAP Vaccination: No Immunization Up to Date: Yes - Psycho/Social/Smoking Cessation Hx Anxiety: No Suicidal Ideation: No Smoking Status: No Smoking History: Never smoked Years of Tobacco Use: 0 Have you smoked in the past 12 months: No Number of Cigarettes Smoked Daily: 0 Cigars Per Day: 0 Information on smoking cessation initiated: No Hx Alcohol Use: No Drug/Substance Use Hx: No Substance Use Type: None Hx Substance Use Treatment: No Trauma Specific PMHX - Complaint Specific PMHX Back Injury: Yes (herniate disc ) Neck Injury: No Review of Systems - Review of Systems Able to Perform ROS?: Yes Is the patient limited Japanese proficient: No Constitutional: No: Symptoms Reported HEENTM: No: Symptoms Reported Respiratory: No: Symptoms reported Cardiac (ROS): No: Symptoms Reported ABD/GI: No: Symptoms Reported : No: Symptoms Reported Musculoskeletal: Yes: See HPI, Back Pain *Physical Exam - Vital Signs Last Vital Signs Temp Pulse Resp BP Pulse Ox 97.9 F 76 18 122/77 98 01/09/17 08:34 01/09/17 08:34 01/09/17 08:34 01/09/17 08:34 01/09/17 08:34 - Physical Exam General Appearance: Yes: Nourished, Appropriately Dressed HEENT: positive: EOMI, RONN, Normal ENT Inspection, TMs Normal, Pharynx Normal Neck: positive: Supple. negative: Tender Respiratory/Chest: positive: Lungs Clear, Normal Breath Sounds Cardiovascular: positive: Regular Rhythm, Regular Rate Musculoskeletal: positive: Normal Inspection, Decreased Range of Motion, Other ( paraspinal lumbar spine ttp muscle neg vetebral tenderness). negative: CVA Tenderness, CVA Tenderness (R), CVA Tenderness (L), Muscle Spasm, Vertebral Tenderness Extremity: positive: Normal Capillary Refill, Normal Inspection, Normal Range of Motion Integumentary: positive: Normal Color, Dry, Warm Neurologic: positive: Fully Oriented, Alert, Normal Mood/Affect, Normal Response , Motor Strength 5/5 Medical Decision Making - Medical Decision Making 01/09/17 09:31 cc: low back pain after doing push ups against the wall no direct trauma no leg weakness or numbness or tingling neg saddle anesthesia neg urine or bowel dysfunction pain worse with movement will give toradol IM pt states she can not take flexeril or valium or any medication that may maker her drowsy or dizzy follow up with neurologist that she sees for her herniated discs 01/09/17 09:41 *DC/Admit/Observation/Transfer Diagnosis at time of Disposition: Lumbar muscle pain - Discharge Dispostion Disposition: HOME Condition at time of disposition: Good - Referrals Referrals: Rivera Mercedes MD [Primary Care Provider] - - Patient Instructions Additional Instructions: apply heating pad every 3hrs for 20 minutes, you allan alternate with ice pack as well follow with your neurologist if pain continues or worsens no heavy lifting or bending
== END 2017-01-09 09:48 | disposition home or self-care (01) ==
LOC: JERFT 08:23
PROC: 3E0233Z Introduction of Anti-inflammatory into Muscle, Percutaneous Approach (ICD-10-PCS; principal; 2017-01-09)
DX: M54.5 Low back pain (principal); X50.3XXA Overexertion from repetitive movements, initial encounter; X50.0XXA Overexertion from strenuous movement or load, initial encounter; Y93.B2 Activity, push-ups, pull-ups, sit-ups; Y92.89 Other specified places as the place of occurrence of the external cause
CPT/HCPCS: 96372; 99281-25

== ENCOUNTER 2017-01-11 21:54 | Emergency (ER) | payer MEDICARE, OTHER ==
[2017-01-11 22:00] VITALS: BP 107/71; PULSE 74; TEMP 98.2; BMI 25.5
[2017-01-11] MEDS ORDERED: KETOROLAC TROMETHAMINE 60 MG/2 ML VIAL IM ONE (22:43)
[2017-01-11] MEDS ORDERED: METOCLOPRAMIDE HCL 10 MG TABLET (FP) PO ONE ×2 (22:43→23:12)
--- NOTE | 2017-01-11 22:43 | PDOC ---
History of Present Illness - General History Source: Patient Exam Limitations: No Limitations - History of Present Illness Initial Comments: 01/11/17 22:47 The patient is a 56 year old female with a significant past medical history of migraines, who presents to the ER with headache for two days. Patient localizes the pain to the left temporal region and surrounding the left eye. She rates the pain at 10/10. Patient believes her fioricet medications are not working. Patient admits she has accompanied photophobia. Denies nausea, vomiting Denies blurred vision Denies aura <Vangie Camacho - Last Filed: 01/11/17 22:47> - General History Source: Patient <Murali Kuo - Last Filed: 01/12/17 00:22> - General Chief Complaint: Migraine Headache Stated Complaint: MIGRAINE Time Seen by Provider: 01/11/17 22:38 Past History <Vangie Camacho - Last Filed: 01/11/17 22:47> - Past Medical History Anemia: Yes Asthma: Yes Cancer: No Cardiac Disorders: Yes (ANG[place]) CVA: No COPD: No CHF: No Dementia: No Diabetes: No GI Disorders: Yes (hiatal hernia,GASTRITIS, ulcer) Disorders: No HTN: No Hypercholesterolemia: No Liver Disease: No Suicide Attempt (Hx): No Seizures: No Thyroid Disease: No - Surgical History Abdominal Surgery: Yes (hernia) Appendectomy: No Cardiac Surgery: No Cholecystectomy: No Lung Surgery: No Neurologic Surgery: No Orthopedic Surgery: No - Immunization History Td Vaccination: Yes TDAP Vaccination: No Immunization Up to Date: Yes - Psycho/Social/Smoking Cessation Hx Anxiety: No Suicidal Ideation: No Smoking Status: No Smoking History: Never smoked Years of Tobacco Use: 0 Have you smoked in the past 12 months: No Number of Cigarettes Smoked Daily: 0 Cigars Per Day: 0 Hx Alcohol Use: No Drug/Substance Use Hx: No Substance Use Type: None Hx Substance Use Treatment: No <Murali Kuo - Last Filed: 01/12/17 00:22> - Past Medical History Allergies/Adverse Reactions: Allergies Allergy/AdvReac Type Severity Reaction Status Date / Time cyclobenzaprine HCl Allergy Severe near Verified 01/11/17 21:56 [From Flexeril] syncope Home Medications: Ambulatory Orders Acetaminophen/Caffeine/Butalb [Fioricet -] 1 tab PO Q6H PRN #20 tablet 10/20/15 Metoclopramide HCl [Reglan -] 10 mg PO TID #30 tablet 01/11/17 Review of Systems - Review of Systems Comments:: 01/11/17 22:47 CONSTITUTIONAL: Absent: fever, no chills, no fatigue EYES: Absent: visual changes ENT: Absent: ear pain, no sore throat CARDIOVASCULAR: Absent: chest pain, no palpitations RESPIRATORY: Absent: cough, no SOB GI: Absent: abdominal pain, no nausea, no vomiting, no constipation, no diarrhea GENITOURINARY: Absent: dysuria, no frequency, no hematuria MUSCULOSKELETAL: Absent: back pain, no arthralgia, no myalgia SKIN: Absent: rash NEURO: Present: (+) headache, (+) left facial pain <His,Vangie - Last Filed: 01/11/17 22:47> *Physical Exam - Vital Signs Last Vital Signs Temp Pulse Resp BP Pulse Ox 98.2 F 74 16 107/71 98 01/11/17 21:59 01/11/17 21:59 01/11/17 21:59 01/11/17 21:59 01/11/17 21:59 - Physical Exam Comments: 01/11/17 22:47 GENERAL: Well-appearing, well-nourished. No apparent distress. HEENT: Normocephalic, atraumatic. PERRL, EOM intact. CARDIOVASCULAR: Normal S1, S2. Regular rate and rhythm. PULMONARY: Clear to auscultation bilaterally. ABDOMEN: Soft, non-distended, non-tender. EXTREMITIES: Normal ROM in all four extremities. No gross deformities. SKIN: Warm, dry. No rash NEUROLOGICAL: No focal neurological deficits. <His,Vangie - Last Filed: 01/11/17 22:47> - Vital Signs Last Vital Signs Temp Pulse Resp BP Pulse Ox 98.2 F 74 16 107/71 98 01/11/17 21:59 01/11/17 21:59 01/11/17 21:59 01/11/17 21:59 01/11/17 21:59 <Murali Kuo - Last Filed: 01/12/17 00:22> Medical Decision Making - Medical Decision Making 01/11/17 23:58 Dr. Kuo: The scribe's documentation has been prepared under my direction and personally reviewed by me in its entirery. I confirm that the note above accurately reflects all work, treatment, procedures, and medical decision making performed by me. <Murali Kuo - Last Filed: 01/12/17 00:22> *DC/Admit/Observation/Transfer - Attestations Scribe Attestion: 01/11/17 22:48 Documentation prepared by Vangie Camacho, acting as medical technologist clinical for Murali Kuo DO. <Vangie Camacho - Last Filed: 01/11/17 22:47> - Discharge Dispostion Admit: No <Murali Kuo - Last Filed: 01/12/17 00:22> Diagnosis at time of Disposition: Migraine - Discharge Dispostion Disposition: HOME Condition at time of disposition: Improved - Prescriptions Prescriptions: Metoclopramide HCl [Reglan -] 10 mg PO TID #30 tablet - Referrals Referrals: Rivera Mercedes MD [Primary Care Provider] - - Patient Instructions Printed Discharge Instructions: DI for Migraine - Post Discharge Activity Work/School Note: Back to Work
[2017-01-11] MEDS ORDERED: KETOROLAC TROMETHAMINE 60 MG/2 ML VIAL ONE (23:11)
== END 2017-01-12 00:01 | disposition home or self-care (01) ==
LOC: JER 21:54
PROC: 3E0233Z Introduction of Anti-inflammatory into Muscle, Percutaneous Approach (ICD-10-PCS; principal; 2017-01-11)
DX: G43.909 Migraine, unspecified, not intractable, without status migrainosus (principal)
CPT/HCPCS: 99281-25

== ENCOUNTER 2017-03-27 15:56 | Emergency (ER) | payer MEDICARE, OTHER ==
[2017-03-27 16:01] VITALS: BP 135/78; PULSE 88; TEMP 98.2; BMI 25.3
[2017-03-27] MEDS ORDERED: KETOROLAC TROMETHAMINE 60 MG/2 ML VIAL IM ONE (17:13)
--- NOTE | 2017-03-27 17:16 | PDOC ---
History of Present Illness - General Chief Complaint: Migraine Headache Stated Complaint: HEADACHE Time Seen by Provider: 03/27/17 17:07 History Source: Patient Exam Limitations: No Limitations - History of Present Illness Initial Comments: 03/27/17 17:13 Patient is a 57-year-old female with history of GERD and migraines presents emergency Department with headache for 7 days. Patient states that she usually takes Fioricet capsules that relieve the headache right away however the last prescription she received was tablets and they do not seem to be working. Patient states that her headache is unchanged from previous, no nausea vomiting , no neurosensory deficits. Photophobia but able to see clearly. Patient states that she has come to the emergency department in the past is being given an injection which relieves the pain. Past Medical History: Denies. Allergies: No known allergies Medications: Fiorecet, omeprazole Family History: Non-contributory Social History: Denies smoking, alcohol use, or IVDU Review of Systems GENERAL/CONSTITUTIONAL: No fever or chills. No weakness. No weight change. HEAD, EYES, EARS, NOSE AND THROAT: No change in vision. No ear pain or discharge. No sore throat. CARDIOVASCULAR: No chest pain or shortness of breath. RESPIRATORY: No cough, wheezing, or hemoptysis. GASTROINTESTINAL: No nausea, vomiting, diarrhea or constipation. No rectal bleeding. GENITOURINARY: No dysuria, frequency, or change in urination. MUSCULOSKELETAL: No joint or muscle swelling or pain. No neck or back pain. SKIN : No rash or easy bruising. NEUROLOGIC: Generalized headache, no vertigo, loss of consciousness, or loss of sensation. PSYCHIATRIC: No depression or anxiety. ENDOCRINE: No increased thirst. No abnormal weight change. HEMATOLOGIC/LYMPHATIC: No anemia, easy bleeding, or history of blood clots. ALLERGIC/IMMUNOLOGIC: No hives or skin allergy. No latex allergy. Physical Exam: GENERAL: The patient is awake, alert, and fully oriented, in no acute distress. HEAD: Normal with no signs of trauma. EYES: Pupils equal, round and reactive to light, extraocular movements intact, sclera anicteric, conjunctiva clear. ENT: Ears normal, nares patent, oropharynx clear without exudates. Moist mucous membranes. No uvula deviation NECK: Normal range of motion, supple without lymphadenopathy, JVD, or masses. LUNGS: Breath sounds equal, clear to auscultation bilaterally. No wheezes, and no crackles. HEART: Regular rate and rhythm, normal S1 and S2 without murmur, rub or gallop. ABDOMEN: Soft, nontender, normoactive bowel sounds. No guarding, no rebound. No masses. No bruising or abrasions MUSCULOSKELETAL: Normal range of motion, no edema. No clubbing or cyanosis. No cords, erythema, or tenderness. No CVA Tenderness with fist. NEUROLOGICAL: Cranial nerves II through XII grossly intact. Normal speech, normal gait. PSYCH: Normal mood, normal affect. SKIN: Warm, Dry, normal turgor, no rashes or lesions noted. Past History - Past Medical History Allergies/Adverse Reactions: Allergies Allergy/AdvReac Type Severity Reaction Status Date / Time cyclobenzaprine HCl Allergy Severe near Verified 03/27/17 15:58 [From [facility]] syncope Home Medications: Ambulatory Orders Acetaminophen/Caffeine/Butalb [Fioricet -] 1 tab PO Q6H #20 cap MDD 4 03/27/17 Anemia: Yes Asthma: Yes Cancer: No Cardiac Disorders: Yes (ANG[place]) CVA: No COPD: No CHF: No Dementia: No Diabetes: No GI Disorders: Yes (hiatal hernia,GASTRITIS, ulcer) Disorders: No HTN: No Hypercholesterolemia: No Liver Disease: No Suicide Attempt (Hx): No Seizures: No Thyroid Disease: No - Surgical History Abdominal Surgery: Yes (tubla ligation) Appendectomy: No Cardiac Surgery: No Cholecystectomy: No Lung Surgery: No Neurologic Surgery: No Orthopedic Surgery: No - Immunization History Td Vaccination: Yes TDAP Vaccination: No Immunization Up to Date: Yes - Psycho/Social/Smoking Cessation Hx Anxiety: No Suicidal Ideation: No Smoking Status: No Smoking History: Never smoked Years of Tobacco Use: 0 Have you smoked in the past 12 months: No Number of Cigarettes Smoked Daily: 0 Cigars Per Day: 0 Information on smoking cessation initiated: No Hx Alcohol Use: No Drug/Substance Use Hx: No Substance Use Type: None Hx Substance Use Treatment: No Neuro Specific PMHX - Complaint Specific PMHX Migraine: Yes *Physical Exam - Vital Signs Last Vital Signs Temp Pulse Resp BP Pulse Ox 98.2 F 88 18 135/78 100 03/27/17 15:59 03/27/17 15:59 03/27/17 15:59 03/27/17 15:59 03/27/17 15:59 Medical Decision Making - Medical Decision Making 03/27/17 17:16 A/P: Patient here for migraine history of chronic migraines patient states headache is usually relieved after Toradol injection, 60 mg of Toradol ordered *DC/Admit/Observation/Transfer Diagnosis at time of Disposition: Migraine - Discharge Dispostion Disposition: HOME Condition at time of disposition: Good Admit: No - Prescriptions Prescriptions: Acetaminophen/Caffeine/Butalb [Fioricet -] 1 tab PO Q6H #20 cap MDD 4 - Referrals Referrals: Rivera Mercedes MD [Primary Care Provider] - - Patient Instructions Printed Discharge Instructions: DI for Migraine, Migraine Headaches ( Alternative Therapy)
== END 2017-03-27 17:40 | disposition home or self-care (01) ==
LOC: JERFT 15:56 → JER 15:56 → JERFT 17:40
PROC: 3E0233Z Introduction of Anti-inflammatory into Muscle, Percutaneous Approach (ICD-10-PCS; principal; 2017-03-27)
DX: G43.909 Migraine, unspecified, not intractable, without status migrainosus (principal); K21.9 Gastro-esophageal reflux disease without esophagitis; J45.909 Unspecified asthma, uncomplicated; D64.9 Anemia, unspecified; I20.9 Angina pectoris, unspecified
CPT/HCPCS: 99281-25

== ENCOUNTER 2017-05-12 19:34 | Emergency (ER) | payer OTHER ==
[2017-05-12 19:42] VITALS: BP 137/83; PULSE 76; TEMP 98.1; BMI 26.6
--- NOTE | 2017-05-12 20:12 | PDOC ---
History of Present Illness - General History Source: Patient Exam Limitations: No Limitations - History of Present Illness Initial Comments: 05/12/17 21:34 57-year-old female with a history of renal colic/pyelonephritis presents to the emergency department complaining of 9/10 sharp intermittent nonradiating left- sided flank pain with nausea/ burn upon urination, dysuria but no vomiting or hematuria. There are no exacerbating or alleviating factors. Patient denies fever, chills, chest pain, shortness of breath, abdominal pains. Timing/Duration: reports: 4-6 hours Associated Symptoms: reports: nausea/vomiting. denies: fever/chills <Flaquita Huston - Last Filed: 05/12/17 21:33> <Mike Morley - Last Filed: 05/15/17 09:09> - General Chief Complaint: Migraine Headache Stated Complaint: HEADACHE Time Seen by Provider: 05/12/17 19:41 Past History - Past Medical History Anemia: Yes Asthma: Yes Cancer: No Cardiac Disorders: Yes (ANGINA) CVA: No COPD: No CHF: No Dementia: No Diabetes: No GI Disorders: Yes (hiatal hernia,GASTRITIS, ulcer) Disorders: No HTN: No Hypercholesterolemia: No Liver Disease: No Seizures: No Thyroid Disease: No - Surgical History Abdominal Surgery: Yes (tubla ligation) Appendectomy: No Cardiac Surgery: No Cholecystectomy: No Lung Surgery: No Neurologic Surgery: No Orthopedic Surgery: No - Immunization History Td Vaccination: Yes TDAP Vaccination: No Immunization Up to Date: Yes - Suicide/Smoking/Psychosocial Hx Smoking Status: No Smoking History: Never smoked Years of Tobacco Use: 0 Have you smoked in the past 12 months: No Number of Cigarettes Smoked Daily: 0 Cigars Per Day: 0 Hx Alcohol Use: No Drug/Substance Use Hx: No Substance Use Type: None Hx Substance Use Treatment: No <Flaquita Huston - Last Filed: 05/12/17 21:33> <Mike Morley - Last Filed: 05/15/17 09:09> - Past Medical History Allergies/Adverse Reactions: Allergies Allergy/AdvReac Type Severity Reaction Status Date / Time cyclobenzaprine HCl Allergy Severe near Verified 05/12/17 19:42 [From Flexeril] syncope Home Medications: Ambulatory Orders Acetaminophen/Caffeine/Butalb [Fioricet -] 1 tab PO Q6H #20 cap MDD 4 03/27/17 Neuro Specific PMHX - Complaint Specific PMHX Migraine: Yes <Flaquita Huston - Last Filed: 05/12/17 21:33> Review of Systems - Review of Systems Able to Perform ROS?: Yes Comments:: 05/12/17 21:34 CONSTITUTIONAL: Absent: fever, chills, diaphoresis, generalized weakness, malaise, loss of appetite HEENT: Absent: rhinorrhea, nasal congestion, throat pain, throat swelling, difficulty swallowing, mouth swelling, ear pain, eye pain, visual Changes CARDIOVASCULAR: Absent: chest pain, loss of consciousness, palpitations, irregular heart rate, peripheral edema RESPIRATORY: Absent: cough, shortness of breath, dyspnea with exertion, orthopnea, wheezing, stridor, hemoptysis GASTROINTESTINAL: Absent: abdominal pain, abdominal distension, nausea, vomiting, diarrhea, constipation, melena, hematochezia GENITOURINARY: Absent: dysuria, frequency, urgency, hesitancy, hematuria, flank pain, genital pain MUSCULOSKELETAL: Absent: myalgia, arthralgia, joint swelling SKIN: Absent: rash, itching, pallor HEMATOLOGIC/IMMUNOLOGIC: Absent: easy bleeding, easy bruising, lymphadenopathy, frequent infections ENDOCRINE: Absent: unexplained weight gain, unexplained weight loss, heat intolerance, cold intolerance NEUROLOGIC: +left temporal merrill Absent: focal weakness or paresthesias, dizziness, unsteady gait, seizure, mental status changes, bladder or bowel incontinence PSYCHIATRIC: Absent: anxiety, depression, suicidal or homicidal ideation, hallucinations. Is the patient limited Chinese proficient: No <Flaquita Huston - Last Filed: 05/12/17 21:33> *Physical Exam - Vital Signs Last Vital Signs Temp Pulse Resp BP Pulse Ox 98.1 F 76 18 137/83 99 05/12/17 19:41 05/12/17 19:41 05/12/17 19:41 05/12/17 19:41 05/12/17 19:41 - Physical Exam Comments: 05/12/17 21:34 GENERAL: Well developed, well nourished. Awake and alert. No acute distress. HEENT: Normocephalic, atraumatic. PERRLA, EOMI. No conjunctival pallor. Sclera are non- icteric. Moist mucous membranes. Oropharynx is clear. NECK: Supple. Full ROM. No JVD. Carotid pulses 2+ and symmetric, without bruits. No thyromegaly. No lymphadenopathy. CARDIOVASCULAR: Regular rate and rhythm. No murmurs, rubs, or gallops. Distal pulses are 2+ and symmetric. PULMONARY: No evidence of respiratory distress. Lungs clear to auscultation bilaterally. No wheezing, rales or rhonchi. ABDOMINAL: Soft. Non-tender. Non-distended. No rebound or guarding. No organomegaly. Normoactive bowel sounds. MUSCULOSKELETAL Normal range of motion at all joints. No bony deformities or tenderness. No CVA tenderness. EXTREMITIES: No cyanosis. No clubbing. No edema. No calf tenderness. SKIN: Warm and dry. Normal capillary refill. No rashes. No jaundice. NEUROLOGICAL: Alert, awake, appropriate. Cranial nerves 2-12 intact. No deficits to light touch and temperature in face, upper extremities and lower extremities. No motor deficits in the in face, upper extremities and lower extremities. Normoreflexic in the upper and lower extremities. Normal speech. Toes are down- going bilaterally. Gait is normal without ataxia. PSYCHIATRIC: Cooperative. Good eye contact. Appropriate mood and affect. <Flaquita Huston - Last Filed: 05/12/17 21:33> - Vital Signs Last Vital Signs Temp Pulse Resp BP Pulse Ox 98.1 F 76 18 137/83 99 05/12/17 19:41 05/12/17 19:41 05/12/17 19:41 05/12/17 19:41 05/12/17 19:41 <Mike Morley - Last Filed: 05/15/17 09:09> ED Treatment Course - LABORATORY CBC & Chemistry Diagram: 05/12/17 20:20 05/12/17 20:20 <Flaquita Huston - Last Filed: 05/12/17 21:33> - LABORATORY CBC & Chemistry Diagram: 05/12/17 20:20 05/12/17 20:20 - ADDITIONAL ORDERS Additional order review: 05/12/17 20:20 RBC 4.62 MCV 91.7 MCHC 34.3 RDW 14.1 MPV 8.9 Neutrophils % 63.5 D Lymphocytes % 28.3 D Monocytes % 5.7 D Eosinophils % 1.2 D Basophils % 1.3 - Medications Given in the ED: ED Medications Discontinued Medications Generic Name Dose Route Start Last Admin Trade Name Michelle PRN Reason Stop Dose Admin Sodium Chloride 1,000 mls @ 1,000 mls/hr 05/12/17 20:15 05/12/17 20:28 Normal Saline - IV 05/12/17 21:14 1,000 mls/hr ASDIR STA Administration Ketorolac Tromethamine 60 mg 05/12/17 20:14 05/12/17 20:19 Toradol Injection - IM 05/12/17 20:15 60 mg ONCE ONE Administration Metoclopramide HCl 10 mg 05/12/17 20:24 05/12/17 20:28 Reglan Injection - IVPB 05/12/17 20:25 10 mg ONCE ONE Administration <Mike Morley - Last Filed: 05/15/17 09:09> Medical Decision Making - Medical Decision Making 05/15/17 09:09 The patient was seen and evaluated in conjunction with ALEX Huston under my direct supervision, ancillary studies were reviewed. I agree with the plan as outlined by ALEX Huston. <Mike Morley - Last Filed: 05/15/17 09:09> *DC/Admit/Observation/Transfer - Discharge Dispostion Admit: No <Flaquita Huston - Last Filed: 05/12/17 21:33> <Mike Morley - Last Filed: 05/15/17 09:09> Diagnosis at time of Disposition: Migraine - Discharge Dispostion Disposition: HOME Condition at time of disposition: Stable - Referrals Referrals: Cameron Fletcher DO [Staff Physician] - - Patient Instructions Printed Discharge Instructions: DI for Migraine Additional Instructions: Take tylenol alternating with Motrin as needed for pain Follow up with your Neurologist Return to the ER for severe/persistent /worsening symptoms
[2017-05-12] MEDS ORDERED: KETOROLAC TROMETHAMINE 60 MG/2 ML VIAL IM ONE (20:14)
[2017-05-12] MEDS ORDERED: SODIUM CHLORIDE 1,000 ML IV STA (20:15)
[2017-05-12] MEDS ORDERED: METOCLOPRAMIDE HCL INJECTION 10 MG/2 ML VIAL IVPB ONE (20:24)
[2017-05-12 20:26] LABS: BASOPHIL 1.3 % (0-2.0); EOSINOPHIL 1.2 % (0-4.5); MCH 31.4 pg (25.7-33.7); MCHC 34.3 g/dl (32.0-36.0); MEAN CELL VOLUME 91.7 fl (80-96); MEAN PLT VOLUME 8.9 fl (7.5-11.1); NEUTROPHILS 63.5 % (42.8-82.8); PLATELET COUNT 212 K/MM3 (134-434); RDW 14.1 % (11.6-15.6); WHITE BLOOD COUNT 7.1 K/mm3 (4.0-10.0)
[2017-05-12 20:49] LABS: ALBUMIN 4.1 g/dl (3.4-5.0); ANION GAP 5 (8-16); BILIRUBIN,TOTAL 0.3 mg/dL (0.2-1.0); CALCIUM 9.4 mg/dL (8.5-10.1); CO2 30 mmol/L (21-32); CREATININE 0.8 mg/dL (0.55-1.02); GLUCOSE,RANDOM 102 mg/dL (74-106); SGOT/AST 19 U/L (15-37); SGPT/ALT 24 U/L (12-78); TOT PROT 7.9 g/dl (6.4-8.2)
[2017-05-12 20:50] LABS: ALK PHOS 74 U/L (45-117)
== END 2017-05-12 22:09 | disposition home or self-care (01) ==
LOC: JER 19:34
PROC: 3E0233Z Introduction of Anti-inflammatory into Muscle, Percutaneous Approach (ICD-10-PCS; principal; 2017-05-12)
PROC: 3E033GC Introduction of Other Therapeutic Substance into Peripheral Vein, Percutaneous Approach (ICD-10-PCS; 2017-05-12)
DX: G43.909 Migraine, unspecified, not intractable, without status migrainosus (principal)
CPT/HCPCS: 36415; 80053; 85025; 96372; 96374; 99281-25

== ENCOUNTER 2017-07-25 13:07 | Emergency (ER) | payer OTHER ==
[2017-07-25 13:11] VITALS: BP 136/69; PULSE 78; TEMP 97.6; BMI 25.4
[2017-07-25] MEDS ORDERED: KETOROLAC TROMETHAMINE 60 MG/2 ML VIAL IM ONE (13:44)
--- NOTE | 2017-07-25 13:44 | PDOC ---
History of Present Illness - General Chief Complaint: Migraine Headache Stated Complaint: MIGRAINES Time Seen by Provider: 07/25/17 13:33 History Source: Patient Exam Limitations: No Limitations - History of Present Illness Initial Comments: 07/25/17 14:04 here with complaints of "migrainae pain x2 days. Is concerned as she slipped and fell striking her right shoulder 5 days ago and wondered if this headache pain was related. Patient denies numbness or tingling to hands or feet, denies any mental status changes, any nausea or vomiting. Denies fever, URI symptoms, Refers to these headaches as her classic migraine headache and states his a neurologist who recommends her using Fioricet. used 1 tablet this morning at 5:30 and another at noon with no resolve of this headache pain. generally comes to emergency department receives a shot of Toradol which resolved her headache pain. Timing/Duration: reports: 24 hours Severity: Yes: mild, moderate Associated Symptoms: reports: denies symptoms. denies: fever/chills, loss of consciousness, muscle spasms, nausea/vomiting, numbness in legs/feet, tingling in legs/feet, trouble walking Past History - Travel Traveled outside of the country in the last 30 days: No Close contact w/someone who was outside of country & ill: No - Past Medical History Allergies/Adverse Reactions: Allergies Allergy/AdvReac Type Severity Reaction Status Date / Time cyclobenzaprine HCl Allergy Severe near Verified 07/25/17 13:11 [From Flexeril] syncope Home Medications: Ambulatory Orders Acetaminophen/Caffeine/Butalb [Fioricet -] 1 tab PO Q4H 06/29/17 Anemia: Yes Asthma: Yes Cancer: No Cardiac Disorders: Yes (ANGINA) CVA: No COPD: No CHF: No DVT: No Dementia: No Diabetes: No GI Disorders: Yes (hiatal hernia,GASTRITIS, ulcer) Disorders: No HTN: No Hypercholesterolemia: No Liver Disease: No Seizures: No Thyroid Disease: No Other medical history: MIGRAINES - Surgical History Abdominal Surgery: Yes (tubal ligation) Appendectomy: No Cardiac Surgery: No Cholecystectomy: No Lung Surgery: No Neurologic Surgery: No Orthopedic Surgery: No - Immunization History Td Vaccination: Yes TDAP Vaccination: No Immunization Up to Date: Yes - Suicide/Smoking/Psychosocial Hx Smoking Status: No Smoking History: Never smoked Years of Tobacco Use: 0 Have you smoked in the past 12 months: No Number of Cigarettes Smoked Daily: 0 Cigars Per Day: 0 Hx Alcohol Use: No Drug/Substance Use Hx: No Substance Use Type: None Hx Substance Use Treatment: No Neuro Specific PMHX - Complaint Specific PMHX Migraine: Yes Review of Systems - Review of Systems Able to Perform ROS?: Yes Is the patient limited Gibraltarian proficient: Yes Constitutional: Yes: Symptoms Reported, See HPI, Malaise HEENTM: Yes: See HPI. No: Nose Congestion, Throat Pain Respiratory: No: Symptoms reported Musculoskeletal: Yes: Symptoms Reported, See HPI, Neck Pain Integumentary: No: Symptoms Reported Neurological: Yes: Symptoms reported, See HPI, Headache. No: Numbness, Paresthesia All Other Systems: Reviewed and Negative *Physical Exam - Vital Signs Last Vital Signs Temp Pulse Resp BP Pulse Ox 97.6 F 78 20 136/69 98 07/25/17 13:09 07/25/17 13:09 07/25/17 13:09 07/25/17 13:09 07/25/17 13:09 - Physical Exam General Appearance: Yes: Nourished, Appropriately Dressed, Apparent Distress, Mild Distress HEENT: positive: RONN, Normal ENT Inspection, Normal Voice, TMs Normal, Pharynx Normal Neck: positive: Tender, Supple, Other (tenderness reproduced along the sternocleidomastoid muscles worse on the left than the right and this point pressure at occiput reproduces pain the patient complains of as "migraine") Respiratory/Chest: positive: Lungs Clear, Normal Breath Sounds Musculoskeletal: positive: Normal Inspection, Muscle Spasm. negative: CVA Tenderness, Decreased Range of Motion (full range of motion to right shoulder, no crepitus or step-offs, no bone tenderness along clavicle or scapula. Shoulder girdle appears to be intact and range of motion is intact.) Extremity: positive: Normal Capillary Refill, Normal Inspection, Normal Range of Motion Integumentary: positive: Normal Color, Dry, Warm Neurologic: positive: gas well pumper II-XII NML intact, Fully Oriented, Alert, Normal Mood/ Affect, Normal Response, Motor Strength 5/5 Progress Note - Progress Note Progress Note: Tension headache versus migraine headache. Patient has no true symptoms of classic migraine with reproduce tenderness at pressure points indicating more of a tension type. Discussed all of this with patient and encouraged her to follow-up at [facility] or with neurologist specializing in headaches. Encouraged to use conservative measures including hot soaks, gentle massage, and stress reduction for relief of this "headache". <Medicated with TOradol 60mgIM . *DC/Admit/Observation/Transfer Diagnosis at time of Disposition: Migraine aura, persistent, with status migrainosus - Discharge Dispostion Disposition: HOME Condition at time of disposition: Stable Admit: No - Referrals Referrals: Rivera Mercedes MD [Primary Care Provider] - Aleksandr Moran MD [Staff Physician] - - Patient Instructions Printed Discharge Instructions: DI for Headache Additional Instructions: Rest, avoid strenuous activity or heavy lifting until pain is resolved May use hot soaks to neck and scalp for relief of muscle tension Continue all Tylenol for anti-inflammatory purpose Call and make appointment with neurologist to discuss different modalities for migraine treatment Return to emergency department for worsened pain, fevers, changes in symptoms or worsening - Post Discharge Activity
[2017-07-25] MEDS ORDERED: KETOROLAC TROMETHAMINE 60 MG/2 ML VIAL ONE (13:46)
== END 2017-07-25 14:17 | disposition home or self-care (01) ==
LOC: JERFT 13:07
PROC: 3E0233Z Introduction of Anti-inflammatory into Muscle, Percutaneous Approach (ICD-10-PCS; principal; 2017-07-25)
DX: G43.101 Migraine with aura, not intractable, with status migrainosus (principal)
CPT/HCPCS: 99281-25

== ENCOUNTER 2017-09-27 22:26 | Emergency (ER) | payer MEDICARE, OTHER ==
[2017-09-27 22:49] VITALS: BP 108/70; PULSE 80; TEMP 98; BMI 26.2
[2017-09-27] MEDS ORDERED: KETOROLAC TROMETHAMINE 60 MG/2 ML VIAL IM ONE (23:51)
--- NOTE | 2017-09-27 23:53 | PDOC ---
History of Present Illness - General History Source: Patient <Murali Kuo - Last Filed: 09/27/17 23:53> - General History Source: Patient Exam Limitations: No Limitations - History of Present Illness Initial Comments: 09/28/17 00:06 The patient is a 57 year old female with a significant PMH of migraines, anemia , and asthma who presents to the emergency department with acute exacerbation of migraine today. The patient reports her usual medications are ineffective when her migraines become this bad but notes it is usually alleviated by a Toradol injection. The patient reports some dizziness with her headache but denies photophobia or phonophobia. The patient is currently on a Tamiflu treatment but reports the Tamiflu maker her headache worse. The patient denies chest pain, shortness of breath, headache and dizziness. Denies fever, chills, nausea, vomit, diarrhea and constipation. Denies dysuria, frequency, urgency and hematuria. Allergies: Cyclobenzaprine HCl. Past surgical history: Tubal ligation. Social history: No reported cigarette, alcohol, or drug use. PCP: Dr. Rivera Mercedes <Berto Hawk - Last Filed: 09/28/17 00:06> - General Chief Complaint: Migraine Headache Stated Complaint: MIGRAINE Time Seen by Provider: 09/27/17 23:49 Past History - Past Medical History Anemia: Yes Asthma: Yes Cancer: No Cardiac Disorders: Yes (ANGINA) CVA: No COPD: No CHF: No DVT: No Dementia: No Diabetes: No GI Disorders: Yes (hiatal hernia,GASTRITIS, ulcer) Disorders: No HTN: No Hypercholesterolemia: No Liver Disease: No Seizures: No Thyroid Disease: No - Surgical History Abdominal Surgery: Yes (tubal ligation) Appendectomy: No Cardiac Surgery: No Cholecystectomy: No Lung Surgery: No Neurologic Surgery: No Orthopedic Surgery: No - Immunization History Td Vaccination: Yes TDAP Vaccination: No Immunization Up to Date: Yes - Suicide/Smoking/Psychosocial Hx Smoking Status: No Smoking History: Never smoked Years of Tobacco Use: 0 Have you smoked in the past 12 months: No Number of Cigarettes Smoked Daily: 0 Cigars Per Day: 0 Information on smoking cessation initiated: No Hx Alcohol Use: No Drug/Substance Use Hx: No Substance Use Type: None Hx Substance Use Treatment: No <Murali Kuo - Last Filed: 09/27/17 23:53> <Berto Hawk - Last Filed: 09/28/17 00:06> - Past Medical History Allergies/Adverse Reactions: Allergies Allergy/AdvReac Type Severity Reaction Status Date / Time cyclobenzaprine HCl Allergy Severe near Verified 09/27/17 22:49 [From Flexeril] syncope Home Medications: Ambulatory Orders Acetaminophen/Caffeine/Butalb [Fioricet -] 1 tab PO Q4H 06/29/17 Review of Systems - Review of Systems Able to Perform ROS?: Yes Comments:: 09/28/17 00:06 CONSTITUTIONAL: Absent: fever, chills, diaphoresis, generalized weakness, malaise, loss of appetite HEENT: Absent: rhinorrhea, nasal congestion, throat pain, throat swelling, difficulty swallowing, mouth swelling, ear pain, eye pain, visual Changes CARDIOVASCULAR: Absent: chest pain, syncope, palpitations, irregular heart rate, lightheadedness , peripheral edema RESPIRATORY: Absent: cough, shortness of breath, dyspnea with exertion, orthopnea, wheezing, stridor, hemoptysis GASTROINTESTINAL: Absent: abdominal pain, abdominal distension, nausea, vomiting, diarrhea, constipation, melena, hematochezia GENITOURINARY: Absent: dysuria, frequency, urgency, hesitancy, hematuria, flank pain, genital pain MUSCULOSKELETAL: Absent: myalgia, arthralgia, joint swelling SKIN: Absent: rash, itching, pallor HEMATOLOGIC/IMMUNOLOGIC: Absent: easy bleeding, easy bruising, lymphadenopathy, frequent infections ENDOCRINE: Absent: unexplained weight gain, unexplained weight loss, heat intolerance, cold intolerance NEUROLOGIC: (+) Headache. Absent: focal weakness or paresthesias, dizziness, unsteady gait, seizure, mental status changes, bladder or bowel incontinence PSYCHIATRIC: Absent: anxiety, depression, suicidal or homicidal ideation, hallucinations. <Berto Hawk - Last Filed: 09/28/17 00:06> *Physical Exam - Vital Signs Last Vital Signs Temp Pulse Resp BP Pulse Ox 98.0 F 80 17 108/70 98 09/27/17 22:43 09/27/17 22:43 09/27/17 22:43 09/27/17 22:43 09/27/17 22:43 <Murali Kuo - Last Filed: 09/27/17 23:53> - Vital Signs Last Vital Signs Temp Pulse Resp BP Pulse Ox 98.0 F 80 17 108/70 98 09/27/17 22:43 09/27/17 22:43 09/27/17 22:43 09/27/17 22:43 09/27/17 22:43 - Physical Exam Comments: 09/28/17 00:06 GENERAL: (+) Mild distress. Well developed, well nourished. Awake and alert. HEENT: Normocephalic, atraumatic. PERRLA, EOMI. No conjunctival pallor. Sclera are non- icteric. Moist mucous membranes. Oropharynx is clear. NECK: Supple. Full ROM. No JVD. Carotid pulses 2+ and symmetric, without bruits. No thyromegaly. No lymphadenopathy. CARDIOVASCULAR: Regular rate and rhythm. No murmurs, rubs, or gallops. Distal pulses are 2+ and symmetric. PULMONARY: No evidence of respiratory distress. Lungs clear to auscultation bilaterally. No wheezing, rales or rhonchi. ABDOMINAL: Soft. Non-tender. Non-distended. No rebound or guarding. No organomegaly. Normoactive bowel sounds. MUSCULOSKELETAL Normal range of motion at all joints. No bony deformities or tenderness. No CVA tenderness. EXTREMITIES: No cyanosis. No clubbing. No edema. No calf tenderness. SKIN: Warm and dry. Normal capillary refill. No rashes. No jaundice. NEUROLOGICAL: Alert, awake, appropriate. Cranial nerves 2-12 intact. No deficits to light touch and temperature in face, upper extremities and lower extremities. No motor deficits in the in face, upper extremities and lower extremities. Normoreflexic in the upper and lower extremities. Normal speech. Toes are downgoing bilaterally. Gait is normal without ataxia. PSYCHIATRIC: Cooperative. Good eye contact. Appropriate mood and affect. <Berto Hawk - Last Filed: 09/28/17 00:06> Medical Decision Making - Medical Decision Making 09/27/17 23:53 Dr. Kuo: The scribe's documentation has been prepared under my direction and personally reviewed by me in its entirery. I confirm that the note above accurately reflects all work, treatment, procedures, and medical decision making performed by me. <Murali Kuo - Last Filed: 09/27/17 23:53> *DC/Admit/Observation/Transfer - Discharge Dispostion Admit: No <Murali Kuo - Last Filed: 09/27/17 23:53> - Attestations Scribe Attestion: 09/28/17 00:06 Documentation prepared by Berto Hawk, acting as medical records coordinator for Murali Kuo DO. <Berto Hawk - Last Filed: 09/28/17 00:06> Diagnosis at time of Disposition: Migraine - Discharge Dispostion Disposition: HOME Condition at time of disposition: Stable - Referrals Referrals: Rivera Mercedes MD [Primary Care Provider] - - Patient Instructions Printed Discharge Instructions: DI for Migraine Additional Instructions: Please take your usual medication as directed. Return if any problems. follow up with your doctor or the doctor referred to you if symptoms don't get better. - Post Discharge Activity
== END 2017-09-28 00:14 | disposition home or self-care (01) ==
LOC: JER 22:26
PROC: 3E0233Z Introduction of Anti-inflammatory into Muscle, Percutaneous Approach (ICD-10-PCS; principal; 2017-09-27)
DX: G43.909 Migraine, unspecified, not intractable, without status migrainosus (principal); J45.909 Unspecified asthma, uncomplicated; I20.9 Angina pectoris, unspecified; Z87.19 Personal history of other diseases of the digestive system
CPT/HCPCS: 99281-25

== ENCOUNTER 2018-01-02 07:13 | Emergency (ER) | payer OTHER ==
[2018-01-02 07:23] VITALS: PULSE 72; TEMP 97.5; BMI 26.6
[2018-01-02] MEDS ORDERED: KETOROLAC TROMETHAMINE 60 MG/2 ML VIAL IM ONE (08:22)
--- NOTE | 2018-01-02 08:22 | PDOC ---
History of Present Illness <Jamee Mckenna - Last Filed: 01/02/18 08:21> - General History Source: Patient Exam Limitations: No Limitations - History of Present Illness Initial Comments: 01/02/18 08:32 The patient is a 57-year-old female, with a significant PMH of migraines, anemia , and asthma, who presents to the ED with acute exacerbation of migraine that began on Sunday12/25/17. The states that when her symptoms began she visited her Neurologist, Dr. Fletcher, who placed the patient on steroids which did helped to alleviate the migraine. Her migraine returned on Sunday12/28/17. The patient visited Dr. Fletcher once again and she received a Toradol shot which helped to alleviate her symptoms. Her migraine recurred on Sunday and Dr. Fletcher prescribed the patient Fioricet tablets, which the patient states made her feel dizzy and off-balance. The patient is requesting Fioricet capsules instead. The patient denies chest pain, shortness of breath. Denies fever, chills, nausea, vomit, diarrhea and constipation. Denies dysuria, frequency, urgency and hematuria. Allergies: Cyclobenzaprine HCl Past surgical history: Tubal ligation. Social history: No reported cigarette, alcohol, or drug use. PCP: Dr. Rivera Mercedes Neurologist: Dr. Fletcher <Brielle Vyas - Last Filed: 01/02/18 16:53> - General Chief Complaint: Migraine Headache Stated Complaint: MIGRANE Time Seen by Provider: 01/02/18 07:53 Past History - Past Medical History Anemia: Yes Asthma: Yes Cancer: No Cardiac Disorders: Yes (ANGINA) CVA: No COPD: No CHF: No DVT: No Dementia: No Diabetes: No GI Disorders: Yes (hiatal hernia,GASTRITIS, ulcer) Disorders: No HTN: No Hypercholesterolemia: No Liver Disease: No Seizures: No Thyroid Disease: No - Surgical History Abdominal Surgery: Yes (tubal ligation) Appendectomy: No Cardiac Surgery: No Cholecystectomy: No Lung Surgery: No Neurologic Surgery: No Orthopedic Surgery: No - Immunization History Td Vaccination: Yes TDAP Vaccination: No Immunization Up to Date: Yes - Suicide/Smoking/Psychosocial Hx Smoking Status: No Smoking History: Never smoked Years of Tobacco Use: 0 Have you smoked in the past 12 months: No Number of Cigarettes Smoked Daily: 0 Cigars Per Day: 0 Hx Alcohol Use: No Drug/Substance Use Hx: No Substance Use Type: None Hx Substance Use Treatment: No <Jamee Mckenna - Last Filed: 01/02/18 08:21> <Brielle Vyas - Last Filed: 01/02/18 16:53> - Past Medical History Allergies/Adverse Reactions: Allergies Allergy/AdvReac Type Severity Reaction Status Date / Time cyclobenzaprine HCl Allergy Severe near Verified 01/02/18 07:20 [From Flexeril] syncope Home Medications: Ambulatory Orders Acetaminophen/Caffeine/Butalb [Fioricet -] 1 tab PO Q4H 06/29/17 Butalb/Acetaminophen/Caffeine [Fioricet 50-300-40 mg Capsule] 1 each PO DAILY PRN #10 capsule 01/02/18 Omeprazole 20 mg PO DAILY 01/02/18 Review of Systems - Review of Systems Able to Perform ROS?: Yes Comments:: 01/02/18 08:52 GENERAL/CONSTITUTIONAL: No fever or chills. No weakness. HEAD, EYES, EARS, NOSE AND THROAT: No change in vision. No ear pain or discharge. No sore throat. CARDIOVASCULAR: No chest pain or shortness of breath. RESPIRATORY: No cough, wheezing, or hemoptysis. GASTROINTESTINAL: No nausea, vomiting, diarrhea or constipation. GENITOURINARY: No dysuria, frequency, or change in urination. MUSCULOSKELETAL: No joint or muscle swelling or pain. No neck or back pain. SKIN: No rash NEUROLOGIC: (+)migraine, dizziness, change in balance. No vertigo, loss of consciousness. ENDOCRINE: No increased thirst. No abnormal weight change. HEMATOLOGIC/LYMPHATIC: No anemia, easy bleeding, or history of blood clots. ALLERGIC/IMMUNOLOGIC: No hives or skin allergy. <Brielle Vyas - Last Filed: 01/02/18 16:53> *Physical Exam - Vital Signs Last Vital Signs Temp Pulse Resp BP Pulse Ox 97.5 F L 72 20 113/67 99 01/02/18 07:17 01/02/18 07:17 01/02/18 07:17 01/02/18 07:17 01/02/18 07:17 - Physical Exam Comments: GENERAL: Awake, alert, and fully oriented, in no acute distress HEAD: No signs of trauma EYES: PERRLA, EOMI, sclera anicteric, conjunctiva clear ENT: Auricles normal inspection, hearing grossly normal, nares patent, oropharynx clear without exudates. Moist mucosa NECK: Normal ROM, supple, no lymphadenopathy, JVD, or masses LUNGS: Breath sounds equal, clear to auscultation bilaterally. No wheezes, and no crackles HEART: Regular rate and rhythm, normal S1 and S2, no murmurs, rubs or gallops ABDOMEN: Soft, nontender, normoactive bowel sounds. No guarding, no rebound. No masses EXTREMITIES: Normal range of motion, no edema. No clubbing or cyanosis. No cords, erythema, or tenderness NEUROLOGICAL: Cranial nerves II through XII grossly intact. Normal speech, normal gait. Strength and sensation intact. SKIN: Warm, Dry, normal turgor, no rashes or lesions noted. <Jamee Mckenna - Last Filed: 01/02/18 08:21> - Vital Signs Last Vital Signs Temp Pulse Resp BP Pulse Ox 97.5 F L 72 20 113/67 99 01/02/18 07:17 01/02/18 07:17 01/02/18 07:17 01/02/18 07:17 01/02/18 07:17 <Brielle Vyas - Last Filed: 01/02/18 16:53> Moderate Sedation - Procedure Monitoring Vital Signs: Vital Signs Temp Pulse Resp BP Pulse Ox 97.5 F L 72 20 113/67 99 01/02/18 07:17 01/02/18 07:17 01/02/18 07:17 01/02/18 07:17 01/02/18 07:17 <Jamee Mckenna - Last Filed: 01/02/18 08:21> - Procedure Monitoring Vital Signs: Vital Signs Temp Pulse Resp BP Pulse Ox 97.5 F L 72 20 113/67 99 01/02/18 07:17 01/02/18 07:17 01/02/18 07:17 01/02/18 07:17 01/02/18 07:17 <Brielle Vyas - Last Filed: 01/02/18 16:53> *DC/Admit/Observation/Transfer - Discharge Dispostion Decision to Admit order: No <Jamee Mckenna - Last Filed: 01/02/18 08:21> - Attestations Scribe Attestion: 01/02/18 08:53 Documentation prepared by Brielle Vyas, acting as center medical and lab director for Jamee Mckenna MD. <Brielle Vyas - Last Filed: 01/02/18 16:53> Diagnosis at time of Disposition: Migraine - Discharge Dispostion Disposition: HOME Condition at time of disposition: Stable - Prescriptions Prescriptions: Butalb/Acetaminophen/Caffeine [Fioricet 50-300-40 mg Capsule] 1 each PO DAILY PRN #10 capsule PRN Reason: Headache - Referrals Referrals: Rivrea Mercedes MD [Primary Care Provider] - - Patient Instructions Printed Discharge Instructions: DI for Migraine - Post Discharge Activity
[2018-01-02 09:42] VITALS: BP 119/62
== END 2018-01-02 09:39 | disposition home or self-care (01) ==
LOC: JER 07:13
PROC: 3E0233Z Introduction of Anti-inflammatory into Muscle, Percutaneous Approach (ICD-10-PCS; principal; 2018-01-02)
DX: G43.909 Migraine, unspecified, not intractable, without status migrainosus (principal); J45.909 Unspecified asthma, uncomplicated; D64.9 Anemia, unspecified
CPT/HCPCS: 96372; 99282-25

== ENCOUNTER 2018-01-08 20:12 | Emergency (ER) | payer OTHER ==
[2018-01-08 20:18] VITALS: BP 132/80; PULSE 81; TEMP 98.4; BMI 26.6
--- NOTE | 2018-01-08 20:20 | PDOC ---
Rapid Medical Evaluation Chief Complaint: Migraine Headache Time Seen by Provider: 01/08/18 20:17 Medical Evaluation: Allergies Allergy/AdvReac Type Severity Reaction Status Date / Time cyclobenzaprine HCl Allergy Severe near Verified 01/02/18 07:20 [From Flexeril] syncope 01/08/18 20:17 Pt. presents with one day of migraine symptoms. States this feels like her usual headaches. Pt also reporting palpitations. Holding L head Exam: no gross neurodeficits, NAD, ambulatory Orders: nothing Pt to proceed to ED for further evaluation
[2018-01-08] MEDS ORDERED: METOCLOPRAMIDE HCL INJECTION 10 MG/2 ML VIAL IVPUSH ONE (21:29)
[2018-01-08] MEDS ORDERED: SODIUM CHLORIDE 0.9% 500 ML INFUS.BAG IV ONE (21:30)
[2018-01-08] MEDS ORDERED: KETOROLAC TROMETHAMINE 30 MG/1 ML VIAL IVPUSH ONE (21:30)
[2018-01-08] MEDS ORDERED: PANTOPRAZOLE SODIUM 40 MG VIAL IVPUSH ONE (21:30)
--- NOTE | 2018-01-08 21:33 | PDOC ---
History of Present Illness - General Chief Complaint: Migraine Headache Stated Complaint: HEADACHE Time Seen by Provider: 01/08/18 20:17 - History of Present Illness Initial Comments: 57-year-old female with past medical history significant for GERD and migraines presents for evaluation of headache 1 day. She states this is typical of her prior migraines however her medication this time has not helped her. She complains of photophobia as well as the usual headache she gets in her migraines are exacerbated. She feels this time there were exacerbated with her change in diet. 01/08/18 21:31 Past History - Past Medical History Allergies/Adverse Reactions: Allergies Allergy/AdvReac Type Severity Reaction Status Date / Time cyclobenzaprine HCl Allergy Severe near Verified 01/02/18 07:20 [From Flexeril] syncope Home Medications: Ambulatory Orders Acetaminophen/Caffeine/Butalb [Fioricet -] 1 tab PO Q4H 06/29/17 Butalb/Acetaminophen/Caffeine [Fioricet 50-300-40 mg Capsule] 1 each PO DAILY PRN #10 capsule 01/02/18 Omeprazole 20 mg PO DAILY 01/02/18 Anemia: Yes Asthma: Yes Cancer: No Cardiac Disorders: Yes (ANGINA) CVA: No COPD: No CHF: No DVT: No Dementia: No Diabetes: No GI Disorders: Yes (hiatal hernia,GASTRITIS, ulcer) Disorders: No HTN: No Hypercholesterolemia: No Liver Disease: No Seizures: No Thyroid Disease: No - Surgical History Abdominal Surgery: Yes (tubal ligation) Appendectomy: No Cardiac Surgery: No Cholecystectomy: No Lung Surgery: No Neurologic Surgery: No Orthopedic Surgery: No - Immunization History Td Vaccination: Yes TDAP Vaccination: No Immunization Up to Date: Yes - Suicide/Smoking/Psychosocial Hx Smoking Status: No Smoking History: Never smoked Years of Tobacco Use: 0 Have you smoked in the past 12 months: No Number of Cigarettes Smoked Daily: 0 Cigars Per Day: 0 Hx Alcohol Use: No Drug/Substance Use Hx: No Substance Use Type: None Hx Substance Use Treatment: No Review of Systems - Review of Systems Neurological: Yes: Headache All Other Systems: Reviewed and Negative *Physical Exam - Vital Signs Last Vital Signs Temp Pulse Resp BP Pulse Ox 98.4 F 81 18 132/80 98 01/08/18 20:17 01/08/18 20:17 01/08/18 20:17 01/08/18 20:17 01/08/18 20:17 - Physical Exam Comments: GENERAL: The patient is awake, alert, and fully oriented, in no acute distress. HEAD: Normal with no signs of trauma. EYES: Pupils equal, round and reactive to light, extraocular movements intact, sclera anicteric, conjunctiva clear. ENT: Ears normal, nares patent, oropharynx clear without exudates. Moist mucous membranes. NECK: Normal range of motion, supple without lymphadenopathy, JVD, or masses. LUNGS: Breath sounds equal, clear to auscultation bilaterally. No wheezes, and no crackles. HEART: Regular rate and rhythm, normal S1 and S2 without murmur, rub or gallop. ABDOMEN: Soft, nontender, normoactive bowel sounds. No guarding, no rebound. No masses. EXTREMITIES: Normal range of motion, no edema. No clubbing or cyanosis. No cords, erythema, or tenderness. NEUROLOGICAL: Cranial nerves II through XII grossly intact. Normal speech, normal gait. PSYCH: Normal mood, normal affect. SKIN: Warm, Dry, normal turgor, no rashes or lesions noted. 01/08/18 21:32 Medical Decision Making - Medical Decision Making 57-year-old female with an exacerbation of her usual migraines refractory to home meds today. I will give her a single dose of Toradol with Protonix for GI prophylaxis. As well as a bolus of saline, IV Benadryl Reglan and Protonix. I will reevaluate her after the medication has been completed. 01/08/18 21:32 01/08/18 23:09 Symptoms resolved after IV Decadron as well as the above-mentioned. I will DC her with neurology follow-up. *DC/Admit/Observation/Transfer Diagnosis at time of Disposition: Migraine - Discharge Dispostion Disposition: HOME Condition at time of disposition: Improved Decision to Admit order: No - Referrals Referrals: Rivera Mercedes MD [Primary Care Provider] - Mustapha Shirley MD [Staff Physician] - - Patient Instructions Printed Discharge Instructions: Migraine -- Adult, DI for Migraine Additional Instructions: Return to the emergency room if your symptoms worsen or return. I recommended neurology follow-up for you. He should follow-up with a neurologist in 1-2 days. - Post Discharge Activity
[2018-01-08] MEDS ORDERED: KETOROLAC TROMETHAMINE 30 MG/1 ML VIAL ONE (21:50)
[2018-01-08] MEDS ORDERED: METOCLOPRAMIDE HCL INJECTION 10 MG/2 ML VIAL ONE (21:50)
[2018-01-08] MEDS ORDERED: PANTOPRAZOLE SODIUM 40 MG/100 ML BAG IVPB ONE (21:50)
[2018-01-08] MEDS ORDERED: DEXAMETHASONE SOD PHOSPHATE 10 MG/1 ML VIAL ONE (22:53)
[2018-01-08] MEDS ORDERED: DEXAMETHASONE SOD PHOSPHATE 10 MG/1 ML VIAL IVPUSH ONE (22:53)
== END 2018-01-08 23:19 | disposition home or self-care (01) ==
LOC: JERFT 20:12
PROC: 3E033GC Introduction of Other Therapeutic Substance into Peripheral Vein, Percutaneous Approach (ICD-10-PCS; principal; 2018-01-08)
PROC: 3E033GC Introduction of Other Therapeutic Substance into Peripheral Vein, Percutaneous Approach (ICD-10-PCS; 2018-01-08)
PROC: 3E033GC Introduction of Other Therapeutic Substance into Peripheral Vein, Percutaneous Approach (ICD-10-PCS; 2018-01-08)
PROC: 3E0333Z Introduction of Anti-inflammatory into Peripheral Vein, Percutaneous Approach (ICD-10-PCS; 2018-01-08)
PROC: 3E0333Z Introduction of Anti-inflammatory into Peripheral Vein, Percutaneous Approach (ICD-10-PCS; 2018-01-08)
DX: G43.909 Migraine, unspecified, not intractable, without status migrainosus (principal); J45.909 Unspecified asthma, uncomplicated; Z87.19 Personal history of other diseases of the digestive system; Z86.2 Personal history of diseases of the blood and blood-forming organs and certain disorders involving the immune mechanism
CPT/HCPCS: 96374; 96375; 99281-25; J1100

== ENCOUNTER 2018-08-04 10:46 | Emergency (ER) | payer OTHER ==
[2018-08-04 10:57] VITALS: BP 134/63; PULSE 82; TEMP 98.3; BMI 29.5
[2018-08-04] MEDS ORDERED: ACETAMINOPHEN 1000 MG/100 ML VIAL (NON FORMULARY) IVPB ONE (11:37)
[2018-08-04] MEDS ORDERED: SODIUM CHLORIDE 0.9% 500 ML INFUS.BAG IV ONE (11:37)
--- NOTE | 2018-08-04 11:42 | PDOC ---
History of Present Illness - General Chief Complaint: Cold Symptoms Stated Complaint: COLD SYMPTOMS Time Seen by Provider: 08/04/18 11:18 - History of Present Illness Initial Comments: 08/04/18 11:40 58-year-old female with a past medical history significant for migraine, was seen in the emergency room yesterday for the same migraine which has been ongoing since her discharge. She describes frontal pressure unrelieved with at home Fioricet. She also has now associated neck pain. Chills mild nausea. Mild bodyaches. Past History - Past Medical History Allergies/Adverse Reactions: Allergies Allergy/AdvReac Type Severity Reaction Status Date / Time cyclobenzaprine HCl Allergy Severe near Verified 08/04/18 10:54 [From Flexeril] syncope Home Medications: Ambulatory Orders Butalb/Acetaminophen/Caffeine [Fioricet 50-300-40 mg Capsule] 1 each PO DAILY PRN #10 capsule 01/02/18 Butalb/Acetaminophen/Caffeine [Fioricet 50-300-40 mg Capsule] 1 each PO QID PRN #20 capsule 08/04/18 Anemia: Yes Asthma: Yes Cancer: No Cardiac Disorders: Yes (ANGINA) CVA: No COPD: No CHF: No DVT: No Dementia: No Diabetes: No GI Disorders: Yes (hiatal hernia,GASTRITIS, ulcer) Disorders: No HTN: No Hypercholesterolemia: No Liver Disease: No Seizures: No Thyroid Disease: No - Surgical History Abdominal Surgery: Yes (tubal ligation) Appendectomy: No Cardiac Surgery: No Cholecystectomy: No Lung Surgery: No Neurologic Surgery: No Orthopedic Surgery: No - Immunization History Td Vaccination: Yes TDAP Vaccination: No Immunization Up to Date: Yes - Suicide/Smoking/Psychosocial Hx Smoking Status: No Smoking History: Never smoked Years of Tobacco Use: 0 Have you smoked in the past 12 months: No Number of Cigarettes Smoked Daily: 0 Cigars Per Day: 0 Hx Alcohol Use: No Drug/Substance Use Hx: No Substance Use Type: None Hx Substance Use Treatment: No Review of Systems - Review of Systems Constitutional: Yes: Chills, Malaise, Weakness. No: Fever Musculoskeletal: Yes: Neck Pain. No: Muscle Pain Neurological: Yes: Headache. No: Numbness, Paresthesia, Tingling, Weakness *Physical Exam - Vital Signs Last Vital Signs Temp Pulse Resp BP Pulse Ox 98.3 F 82 18 134/63 99 08/04/18 10:55 08/04/18 10:55 08/04/18 10:55 08/04/18 10:55 08/04/18 10:55 - Physical Exam Comments: 08/04/18 11:42 HEAD: NC/AT EYES: Conjuntiva clear Ears: Canals and TM's normal NOSE: No d/c THROAT: Moist mucous membrances, oral pharanx clear, uvula midline NECK: Supple without adenopathy, No meningismus CARDIAC: S1 S2 LUNGS: CTA Full and Equal breath sounds ABDOMEN: Soft NT ND MS: Full ROM in all joints without edema NEUROLOGIC: No gross sensory or motor deficits, NVID SKIN: Normal color and temperature no lesions or rashes 08/04/18 11:54 Moderate Sedation - Procedure Monitoring Vital Signs: Procedure Monitoring Vital Signs Temperature 98.3 F 08/04/18 10:55 Pulse Rate 82 08/04/18 10:55 Respiratory Rate 18 08/04/18 10:55 Blood Pressure 134/63 08/04/18 10:55 O2 Sat by Pulse Oximetry (%) 99 08/04/18 10:55 *DC/Admit/Observation/Transfer Diagnosis at time of Disposition: Migraine, Headache - Discharge Dispostion Disposition: HOME Condition at time of disposition: Improved Decision to Admit order: No - Prescriptions Prescriptions: Butalb/Acetaminophen/Caffeine [Fioricet 50-300-40 mg Capsule] 1 each PO QID PRN #20 capsule PRN Reason: Headache - Referrals Referrals: Rivera Mercedes MD [Primary Care Provider] - - Patient Instructions Printed Discharge Instructions: Migraine -- Adult, DI for Migraine Additional Instructions: Please follow-up with your neurologist in 2-3 days for further evaluation and treatment options. Return to the emergency room should symptoms worsen or go unresolved. I did refill your Fioricet. Flu swab today was negative. - Post Discharge Activity
[2018-08-04] MEDS ORDERED: ACETAMINOPHEN INJECTION 100 ML IVPB ONE (11:49)
[2018-08-04] MEDS ORDERED: KETOROLAC TROMETHAMINE 30 MG/1 ML VIAL IVPUSH ONE (13:14)
[2018-08-04] MEDS ORDERED: KETOROLAC TROMETHAMINE 30 MG/1 ML VIAL ONE (13:15)
== END 2018-08-04 13:56 | disposition home or self-care (01) ==
LOC: JERFT 10:46
PROC: 3E033GC Introduction of Other Therapeutic Substance into Peripheral Vein, Percutaneous Approach (ICD-10-PCS; principal; 2018-08-04)
PROC: 3E033NZ Introduction of Analgesics, Hypnotics, Sedatives into Peripheral Vein, Percutaneous Approach (ICD-10-PCS; 2018-08-04)
PROC: 3E0333Z Introduction of Anti-inflammatory into Peripheral Vein, Percutaneous Approach (ICD-10-PCS; 2018-08-04)
DX: G43.909 Migraine, unspecified, not intractable, without status migrainosus (principal)
CPT/HCPCS: 87804; 99281-25; J0131

== ENCOUNTER 2019-09-15 08:25 | Emergency (ER) | payer OTHER ==
[2019-09-15 08:39] VITALS: BP 108/57; PULSE 78; TEMP 97.8; BMI 29.2
[2019-09-15] MEDS ORDERED: SODIUM CHLORIDE 1,000 ML IV STA (09:44)
[2019-09-15] MEDS ORDERED: KETOROLAC TROMETHAMINE 30 MG/1 ML VIAL IVPUSH ONE (09:44)
[2019-09-15] MEDS ORDERED: METOCLOPRAMIDE HCL INJECTION 10 MG/2 ML VIAL IVPB ONE (09:49)
--- NOTE | 2019-09-15 09:55 | PDOC ---
History of Present Illness - General Chief Complaint: Migraine Headache Stated Complaint: Migraine Headache Time Seen by Provider: 09/15/19 09:20 - History of Present Illness Initial Comments: 59 y/o F hx of migraines, asthma, angina, gastritis and hiatal hernia presents to the ER with a headache which began 3-4 days ago. pt normally takes fiorcet for her migraines. This episode feels like her previous migraines, but has was not relieved with her usual medication. she denies any fevers, chills, chest pain, shortness of breath, numbness, tingling, blurry vision. Past History - Past Medical History Allergies/Adverse Reactions: Allergies Allergy/AdvReac Type Severity Reaction Status Date / Time cyclobenzaprine HCl Allergy Severe near Verified 09/15/19 08:39 [From Flexeril] syncope Home Medications: Ambulatory Orders Butalb/Acetaminophen/Caffeine [Fioricet 50-300-40 mg Capsule] 1 each PO QID PRN #20 capsule 08/04/18 Anemia: No Asthma: Yes Cancer: No Cardiac Disorders: Yes (ANGINA) CVA: No COPD: No CHF: No DVT: No Dementia: No Diabetes: No GI Disorders: Yes (hiatal hernia,GASTRITIS, ulcer) Disorders: No HTN: No Hypercholesterolemia: No Liver Disease: No Seizures: No Thyroid Disease: No Other medical history: MIGRAINES - Surgical History Abdominal Surgery: Yes (tubal ligation) Appendectomy: No Cardiac Surgery: No Cholecystectomy: No Lung Surgery: No Neurologic Surgery: No Orthopedic Surgery: No - Immunization History Td Vaccination: Yes TDAP Vaccination: No Immunization Up to Date: Yes - Psycho Social/Smoking Cessation Hx Smoking Status: No Smoking History: Never smoked Years of Tobacco Use: 0 Have you smoked in the past 12 months: No Number of Cigarettes Smoked Daily: 0 Cigars Per Day: 0 Information on smoking cessation initiated: No Hx Alcohol Use: No Drug/Substance Use Hx: No Substance Use Type: None Hx Substance Use Treatment: No Review of Systems - Review of Systems Constitutional: No: Chills, Fever HEENTM: No: Eye Pain, Blurred Vision Respiratory: No: Cough, Shortness of Breath Cardiac (ROS): No: Chest Pain, Edema ABD/GI: No: Abdominal Distended : No: Burning, Dysuria Musculoskeletal: Yes: Back Pain, Neck Pain Integumentary: No: Bruising, Change in Color Neurological: Yes: Headache, Dizziness *Physical Exam - Vital Signs Last Vital Signs Temp Pulse Resp BP Pulse Ox 97.8 F 78 17 108/57 L 100 09/15/19 08:35 09/15/19 08:35 09/15/19 08:35 09/15/19 08:35 09/15/19 09:21 - Physical Exam 09/15/19 09:58 GENERAL: Awake, alert, and fully oriented, in no acute distress HEAD: No signs of trauma, normocephalic, atraumatic EYES: PERRLA, EOMI, sclera anicteric, conjunctiva clear ENT: Auricles normal inspection, hearing grossly normal, nares patent, o ropharynx clear without exudates. Moist mucosa NECK: Normal ROM, supple, no lymphadenopathy, JVD, or masses LUNGS: No distress, speaks full sentences, clear to auscultation bilaterally HEART: Regular rate and rhythm, normal S1 and S2, no murmurs, rubs or gallops, peripheral pulses normal and equal bilaterally. ABDOMEN: Soft, nontender, normoactive bowel sounds. No guarding, no rebound. No masses EXTREMITIES : Normal inspection, Normal range of motion, no edema. No clubbing or cyanosis NEUROLOGICAL: Cranial nerves II through XII grossly intact. Normal speech, no focal sensorimotor deficits SKIN: Warm, Dry, normal turgor, no rashes or lesions noted 09/15/19 09:58 ED Treatment Course - LABORATORY CBC & Chemistry Diagram: 09/15/19 09:30 09/15/19 09:30 Medical Decision Making - Medical Decision Making 09/15/19 09:59 ekg, cardiac profile,cbc, cmp meds: toradol, reglan, benadryl Discharge - Discharge Information Problems reviewed: Yes Clinical Impression/Diagnosis: Migraine Qualifiers: Migraine type: other Status migrainosus presence: without status migrainosus Intractability: not intractable Qualified Code(s): G43.809 - Other migraine, not intractable, without status migrainosus Condition: Improved Disposition: HOME - Admission No - Follow up/Referral Referrals: Rivera Mercedes MD [Primary Care Provider] - - Patient Discharge Instructions Patient Printed Discharge Instructions: DI for Migraine Additional Instructions: You were seen in the ER for a headache Follow up with your primary care doctor in the next few days RETURN TO THE ER -you develop fevers, chills, nausea, vomiting, -headache that worsens or is not relieved by any of your medications at home. - Post Discharge Activity
[2019-09-15 10:13] LABS: BASO % 1.4 % (0-2.0); EOS % 2.4 % (0-4.5); HEMATOCRIT 40.9 % (32.4-45.2); HEMOGLOBIN 13.9 GM/dL (10.7-15.3); LYMPH % 32.5 % (8-40); MCH 31.2 pg (25.7-33.7); MCHC 33.9 g/dl (32.0-36.0); MEAN PLT VOLUME 9.8 fl (7.5-11.1); MONO % 6.6 % (3.8-10.2); NEUT % 57.1 % (42.8-82.8); PLATELET COUNT 205 K/MM3 (134-434); RBC 4.45 M/mm3 (3.60-5.2); RDW 14.3 % (11.6-15.6); WHITE BLOOD COUNT 5.2 K/mm3 (4.0-10.0)
[2019-09-15 11:32] LABS: ALBUMIN 3.8 g/dl (3.4-5.0); ALK PHOS 81 U/L (45-117); ANION GAP 7 MMOL/L (8-16); BILIRUBIN,TOTAL 0.3 mg/dL (0.2-1); BLOOD UREA NITROGEN 17.2 mg/dL (7-18); CALCIUM 9.1 mg/dL (8.5-10.1); CHLORIDE 107 mmol/L (98-107); CO2 26 mmol/L (21-32); CREATININE 0.8 mg/dL (0.55-1.3); GLUCOSE,RANDOM 65 mg/dL (74-106); POTASSIUM 3.4 mmol/L (3.5-5.1); SGOT/AST 17 U/L (15-37); SGPT/ALT 23 U/L (13-61); SODIUM 140 mmol/L (136-145); TOT PROT 7.4 g/dl (6.4-8.2)
--- NOTE | 2019-09-15 11:37 | PDOC ---
Documentation entered by Vira Lyons SCRIBE, acting as scribe for Quyen Fung MD. Quyen Fung MD: This documentation has been prepared by the Serena herring Nirvannie, SCRIBE, under my direction and personally reviewed by me in its entirety. I confirm that the documentation accurately reflects all work, treatment, procedures, and medical decision making performed by me. Attending Attestation - Resident Resident Name: KarthikStephanyFlacoJuany - ED Attending Attestation I have performed the following: I have examined & evaluated the patient, The case was reviewed & discussed with the resident, I agree w/resident's findings & plan, Exceptions are as noted - HPI HPI: 09/15/19 10:57 The patient is a 59 year old female, with a significant past medical history of asthma, gastritis, and migraines, who presents to the emergency department with 4 days of a headache with associated dizziness and nausea. As per patient, her headache is worse than her baseline migraines (normally relieved by Fiorcet, not today). She notes similar episodes in the past which she notes she has gone to the ER, prompting her arrival to the ED. She denies recent fevers or chills. She denies recent diarrhea or constipation. She denies recent dysuria, frequency, urgency or hematuria. She denies recent chest pain or shortness of breath. Allergies: Cyclobenzaprine HCl Primary Care Physician: Dr. Mercedes - Physicial Exam PE: 09/15/19 10:57 GENERAL: Awake, alert, and fully oriented, in no acute distress HEAD: No signs of trauma EYES: PERRLA, EOMI, sclera anicteric, conjunctiva clear ENT: Auricles normal inspection, hearing grossly normal, nares patent, oropharynx clear without exudates. Moist mucosa NECK: Normal ROM, supple, no lymphadenopathy, JVD, or masses LUNGS: Breath sounds equal, clear to auscultation bilaterally. No wheezes, and no crackles HEART: Regular rate and rhythm, normal S1 and S2, no murmurs, rubs or gallops ABDOMEN: Soft, nontender, normoactive bowel sounds. No guarding, no rebound. No masses EXTREMITIES: Normal range of motion, no edema. No clubbing or cyanosis. No cords, erythema, or tenderness NEUROLOGICAL: Cranial nerves II through XII grossly intact. Normal speech, normal gait SKIN: Warm, Dry, normal turgor, no rashes or lesions noted. - Medical Decision Making 09/15/19 11:32 Pt presents to the ED complaining of headache that is similar to her chronic migraines but more severe. Pain is improved after reglan, benadryl and toradol and patient is asking to go home. Denies neurologic complaints except for mild vertigo, which she states always occurs with her headaches. plan was for labs and likely discharge, but patient is insistent on leaving while labs are still pending. Will discharge home with instructions to follow up for worsening symptoms.
--- NOTE | 2019-09-15 12:15 | EKG ---
Test Reason : Blood Pressure : / mmHG Vent. Rate : 077 BPM Atrial Rate : 077 BPM P-R Int : 220 ms QRS Dur : 080 ms QT Int : 416 ms P-R-T Axes : 052 001 048 degrees QTc Int : 470 ms SINUS RHYTHM WITH 1ST DEGREE A-V BLOCK POOR R WAVE PROGRESSION BORDERLINE ECG WHEN COMPARED WITH ECG OF 06-SEP-2015 21:45, NE INTERVAL HAS INCREASED Confirmed by Nisreen Nava ([id number]) on 09/15/2019 12:15:08 PM Referred By: Confirmed By:Nisreen Nava
== END 2019-09-15 11:42 | disposition home or self-care (01) ==
LOC: JER 08:25
PROC: 3E033GC Introduction of Other Therapeutic Substance into Peripheral Vein, Percutaneous Approach (ICD-10-PCS; principal; 2019-09-15)
PROC: 3E0333Z Introduction of Anti-inflammatory into Peripheral Vein, Percutaneous Approach (ICD-10-PCS; 2019-09-15)
PROC: 3E033GC Introduction of Other Therapeutic Substance into Peripheral Vein, Percutaneous Approach (ICD-10-PCS; 2019-09-15)
DX: G43.809 Other migraine, not intractable, without status migrainosus (principal); K21.9 Gastro-esophageal reflux disease without esophagitis; J45.909 Unspecified asthma, uncomplicated; Z98.51 Tubal ligation status
CPT/HCPCS: 36415; 80053; 82550; 82553; 84484; 85025; 93005; 93010; 96374; 96375; 96376; 99285-25; J7030

== ENCOUNTER 2020-05-14 06:40 | Emergency (ER) | payer OTHER ==
[2020-05-14 07:09] VITALS: BMI 26.6
--- OUTSIDE RECORDS SUMMARY | 2020-05-14 07:14 | XMS ---
:1960 Author Organization [facility] Support Name Relationship Address Phone UE Unavailable Unavailable Unavailable [place] [address] DILLON CHANEL DAUGHTER [address] [place] [address] N/S, N/S Unavailable [address] [place] [address] [place] [address] Re-disclosure Warning The records that you are about to access may contain information from federally- assisted alcohol or drug abuse programs. If such information is present, then the following federally mandated warning applies: This information has been disclosed to you from records protected by federal confidentiality rules (42 CFR part 2). The federal rules prohibit you from making any further disclosure of this information unless further disclosure is expressly permitted by the written consent of the person to whom it pertains or as otherwise permitted by 42 CFR part 2. A general authorization for the release of medical or other information is NOT sufficient for this purpose. The Federal rules restrict any use of the information to criminally investigate or prosecute any alcohol or drug abuse patient.The records that you are about to access may contain highly sensitive health information, the redisclosure of which is protected by Article 27-F of the [facility] Public Health law. If you continue you may haveaccess to information: Regarding HIV / AIDS; Provided by facilities licensed or operated by the [facility] Office of Mental Health; or Provided by the [facility] Office for People With Developmental Disabilities. If such information is present, then the following [facility] mandated warning applies: This information has been disclosed to you from confidential records which are protected by state law. State law prohibits you from making any further disclosure of this information without the specific written consent of the person to whom it pertains, or as otherwise permitted by law. Any unauthorized further disclosure in violation of state law may result in a fine or long term sentence or both. A general authorization for the release of medical or other information is NOT sufficient authorization for further disclosure. Allergies and Adverse Reactions Type Description Substance Reaction Status Data Source(s ) Drug allergy Levofloxacin Levofloxacin edema Active eCW3 ([facility]) Drug allergy Cyclobenzaprine HCl cyclobenzaprine palpitations Active eCW3 ([facility]) Drug allergy Cyclobenzaprine HCl cyclobenzaprine palpitations Active eCW3 ([facility]) Encounters Encounter Providers Location Date Indications Data Source(s ) Outpatient [facility] 05/14/2019 eCW3 [facility] 12:00:00 AM [facility] - [facility]) 05/14/2019 12:00:00 AM EDT Outpatient [facility] 05/09/2019 eCW3 ([facility] 12:00:00 [facility]) 05/09/2019 12:00:00 AM EDT A28-Est Therapy, [facility] 03/27/2019 eCW3 ([facility] 12:00:00 [facility]) 03/27/2019 12:00:00 AM EDT (ROV) Regular [facility] 03/20/2019 eCW3 ([facility] 12:[facility]:00 [facility] - [facility]) 03/20/2019 12:00:00 AM EDT Outpatient [facility] 03/05/2019 eCW3 ([facility] 12:00:00 [facility]) 03/05/2019 12:00:00 AM EDT Outpatient [facility] 03/04/2019 eCW3 ([facility] 12:00:00 AM [facility] - [facility]) 03/04/2019 12:00:00 AM EDT Outpatient [facility] 02/28/2019 eCW3 ([facility] 12:00:00 AM [facility] - [facility]) 02/28/2019 12:00:00 AM EDT Outpatient [facility] 01/08/2019 eCW3 ([facility] 12:00:00 [facility] - [facility]) 01/08/2019 12:00:00 AM EDT Outpatient [facility] 10/31/2018 eCW3 ([facility] 12:00:00 AM [facility] - [facility]) 10/31/2018 12:00:00 AM EDT Outpatient [facility] 10/15/2018 eCW3 ([facility] 12:00:00 AM [facility] EST - [facility]) 10/15/2018 12:00:00 AM EST Immunizations Vaccine Date Status Description Data Source(s) New in 2011. IIV4 05/14/2019 completed eCW3 ([facility] 01:51:00 PM EDT Health Care) New in 2011. IIV4 05/14/2019 completed eCW3 ([facility] 01:51:00 PM EDT [facility] Care) New in 2011. IIV4 05/14/2019 completed eCW3 ([facility] 01:51:00 PM EDT Health Care) New in 2011. IIV4 07/31/2018 completed eCW3 ([facility] 12:52:00 PM EST Health Care) New in 2011. IIV4 07/31/2018 completed eCW3 ([facility] 12:52:00 PM EST Health Care) New in 2011. IIV4 07/31/2018 completed eCW3 ([facility] 12:52:00 PM EST Health Care) As of April 1999, a 05/29/2017 completed eCW3 ([facility] 2-dose hepatitis B 11:32:00 AM EDT Health Care) schedule for adolescents (11-15 year olds) was FDA approved for Merck's Recombivax HB adult formulation. Use code 43 for the 2-dose. This code should be used for any use of standard adult formulation of hepatitis B vaccine. As of April 1999, a 05/29/2017 completed eCW3 ([facility] 2-dose hepatitis B 11:32:00 AM EDT Health Care) schedule for adolescents (11-15 year olds) was FDA approved for Merck's Recombivax HB adult formulation. Use code 43 for the 2-dose. This code should be used for any use of standard adult formulation of hepatitis B vaccine. As of April 1999, a 05/29/2017 completed eCW3 [facility] schedule for adolescents (11-15 year olds) was FDA approved for Merck's Recombivax HB adult formulation. Use code 43 for the 2-dose. This code should be used for any use of standard adult formulation of hepatitis B vaccine. Hep A-Hep B 01/24/2017 completed eCW3 ([facility] 10:46:00 AM ED [facility] Care) Hep A-Hep B 01/24/2017 completed eCW3 ([facility] 10:46:00 AM ED Health Care) Hep A-Hep B 01/24/2017 completed eCW3 ([facility] 10:46:00 AM ED Health Care) Hep A-Hep B 12/06/2016 completed eCW3 ([facility] 02:39:00 PM ED Health Care) Hep A-Hep B 12/06/2016 completed eCW3 ([facility] 02:39:00 PM [facility] Health Care) Hep A-Hep B 12/06/2016 completed eCW3 ([facility] 02:39:00 PM [facility] Health Care) IIV3. This vaccine code 07/14/2015 completed eCW3 ([facility] is one of two which 10:42:00 AM EST Healt h Care) replace CVX 15, influenza, split virus. IIV3. This vaccine code 07/14/2015 completed eCW3 ([facility] is one of two which 10:42:00 AM EST Healt h Care) replace CVX 15, influenza, split virus. IIV3. This vaccine code 07/14/2015 completed eCW3 ([facility] is one of two which 10:42:00 AM EST Healt h Care) replace CVX 15, influenza, split virus. Tdap 09/23/2012 completed eCW3 ([facility] 07:51:47 PM EST Health Care) Tdap 09/23/2012 completed eCW3 ([facility] 07:51:47 PM EST Health Care) Tdap 09/23/2012 completed eCW3 ([facility] 07:51:47 PM EST Health Care) Medications Medication Brand Start Product Dose Route Administrative Pharmacy [facility] Indications Reaction Description Data Name Date Form Instructions Instructions Source(s) Betamethaso Clotri 08/07/ 1.0 active Clotrim azole eCW3 ne 0.5 mazole 2019 {appl -Betamethaso ([facility] MG/ML / -Betam 12:00: icati ne 1-0.05 % [facility] Clotrimazol ethaso 00 AM on} Healt h e 10 MG/ML ne EDT Care) Topical 1-0.05 Cream % Clotrimazol e-Betametha sone 1-0.05 % Hydroxyzine HydrOX .0 active HydrOXY zine eCW3 Hydrochlori Yzine 2019 {tabl HCl 50 MG ( [facility] de 50 MG HCl 50 12:00: et_as [facility] Oral Tablet MG 00 AM _need Health HydrOXYzine EDT ed} Care) HCl 50 MG Hydroxyzine HydrOX .0 active HydrOXY zine eCW3 Hydrochlori Yzine 2019 {tabl HCl 50 MG ( [facility] de 50 MG HCl 50 12:00: et_as [facility] Oral Tablet MG 00 AM _need Health HydrOXYzine EDT ed} Care) HCl 50 MG Betamethaso Clotri .0 active Clotrim azole eCW3 ne 0.5 mazole 2019 {appl -Betamethaso ([facility] MG/ML / -Betam 12:00: icati ne 1-0.05 % [facility] Clotrimazol ethaso 00 AM on} Healt h e 10 MG/ML ne EDT Care) Topical 1-0.05 Cream % Clotrimazol e-Betametha sone 1-0.05 % Betamethaso Clotri .0 active Clotrim azole eCW3 ne 0.5 mazole 2019 {appl -Betamethaso ([facility] MG/ML / -Betam 12:00: icati ne 1-0.05 % [facility] Clotrimazol ethaso 00 AM on} Healt h e 10 MG/ML ne EDT Care) Topical 1-0.05 Cream % Clotrimazol e-Betametha sone 1-0.05 % Levothyroxi Levoth 03/03/ active Levothy roxin eCW3 ne Sodium yroxin 2019 e Sodium 50 ( [facility] 0.05 MG e 12:00: MCG [facility] Oral Tablet Sodium 00 AM Healt h Levothyroxi 50 MCG EDT Care) ne Sodium 50 MCG Nasal Mist Nasal 11/02/ suspend Nasal Mi st eCW3 0.9 % Mist 2020 ed 0.9 % ([facility] 0.9 % 12:00: [facility] 00 AM Health EDT Care) 2 ML Ketoro 07/22/ 2.0 active Ketorolac eCW3 Ketorolac lac 2018 {ml} Tromethamine ([facility] Tromethamin Tromet 12:00: 60 MG/2ML [facility] e 30 MG/ML hamine 00 AM Health Cartridge 60 EST Care) Ketorolac MG/2ML Tromethamin e 60 MG/2ML Sumatriptan Sumatr 03/04/ active Sumatri ptan eCW3 50 MG Oral iptan 2019 Succinate 50 ([facility] Tablet Succin 12:00: mg [facility] Sumatriptan ate 50 00 AM Healt h Succinate mg EDT Care) 50 mg Sumatriptan Sumatr 03/04/ suspend Sumatr iptan eCW3 50 MG Oral iptan 2018 ed Succinate 50 ([facility] Tablet Succin 12:00: mg [facility] Sumatriptan ate 50 00 AM Healt h Succinate mg EDT Care) 50 mg Sumatriptan Sumatr 03/04/ suspend Sumatr iptan eCW3 50 MG Oral iptan 2018 ed Succinate 50 ([facility] Tablet Succin 12:00: mg [facility] Sumatriptan ate 50 00 AM Healt h Succinate mg EDT Care) 50 mg Sumatriptan Sumatr 03/04/ suspend Sumatr iptan eCW3 50 MG Oral iptan 2018 ed Succinate 50 ([facility] Tablet Succin 12:00: mg [facility] Sumatriptan ate 50 00 AM Healt h Succinate mg EDT Care) 50 mg Sumatriptan Sumatr 03/04/ suspend Sumatr iptan eCW3 50 MG Oral iptan 2019 ed Succinate 50 ([facility] Tablet Succin 12:00: mg [facility] Sumatriptan ate 50 00 AM Healt h Succinate mg EDT Care) 50 mg Sumatriptan Sumatr 03/04/ suspend Sumatr iptan eCW3 50 MG Oral iptan 2019 ed Succinate 50 ([facility] Tablet Succin 12:00: mg [facility] Sumatriptan ate 50 00 AM Healt h Succinate mg EDT Care) 50 mg Sumatriptan Sumatr 07/23/ suspend Sumatr iptan eCW3 50 MG Oral iptan 2019 ed Succinate 50 ([facility] Tablet Succin 12:00: mg [facility] Sumatriptan ate 50 00 AM Healt h Succinate mg EDT Care) 50 mg Sumatriptan Sumatr 03/04/ suspend Sumatr iptan eCW3 50 MG Oral iptan 2019 ed Succinate 50 ([facility] Tablet Succin 12:00: mg [facility] Sumatriptan ate 50 00 AM Healt h Succinate mg EDT Care) 50 mg Sumatriptan Sumatr 03/04/ suspend Sumatr iptan eCW3 50 MG Oral iptan 2019 ed Succinate 50 ([facility] Tablet Succin 12:00: mg [facility] Sumatriptan ate 50 00 AM Healt h Succinate mg EDT Care) 50 mg Florastor Flor[place] 02/28/ 1.0 suspend Florasto r eCW3 250 mg tor 2018 {caps ed 250 mg ([facility] 250 mg 12:00: ule} [facility] 00 AM Health EDT Care) 2 ML Ketoro 10/31/ 2.0 suspend Ketorolac eCW 3 Ketorolac lac 2019 {ml} ed Tromethamine ([facility] Tromethamin Tromet 12:00: 60 MG/2ML [facility] e 30 MG/ML hamine 00 AM Health Cartridge 60 EDT Care) Ketorolac MG/2ML Tromethamin e 60 MG/2ML 2 ML Ketoro 10/31/ 2.0 active Ketorolac eCW3 Ketorolac lac 2018 {ml} Tromethamine ([facility] Tromethamin Tromet 12:00: 60 MG/2ML [facility] e 30 MG/ML hamine 00 AM Health Cartridge 60 EDT Care) Ketorolac MG/2ML Tromethamin e 60 MG/2ML 2 ML Ketoro 10/15/ active Ketorolac eCW3 Ketorolac lac 2019 Tromethamine ([facility] Tromethamin Tromet 12:00: 60 MG/2ML [facility] e 30 MG/ML hamine 00 AM Health Cartridge 60 EST Care) Ketorolac MG/2ML Tromethamin e 60 MG/2ML 2 ML Ketoro 02/27/ 2.0 active Ketorolac eCW3 Ketorolac lac 2018 {ml_o Tromethamine ( [facility] Tromethamin Tromet 12:00: ne_ti 60 MG/2M L [facility] e 30 MG/ML hamine 00 AM me} Health Cartridge 60 EDT Care) Ketorolac MG/2ML Tromethamin e 60 MG/2ML 2 ML Ketoro .0 suspend Ketorolac eC 3 Ketorolac lac 2018 {ml_o ed Tromethamine ( [facility] Tromethamin Tromet 12:00: ne_ti 60 MG/2M L [facility] e 30 MG/ML hamine 00 AM me} Health Cartridge 60 EDT Care) Ketorolac MG/2ML Tromethamin e 60 MG/2ML 200 ACTUAT Pro[place] .0 suspend Provent ks eCW3 Albuterol til 2018 {puff ed HFA 108 (90 ([facility] 0.09 HFA 12:00: s_as_ Base) [facility] MG/ACTUAT 108 00 AM neede MCG/ACT Healt h Metered (90 EST d} Care) Dose Base) Inhaler MCG/AC [Proventil] T Proventil HFA 108 (90 Base) MCG/ACT 200 ACTUAT [place] .0 active Proventi l eCW3 Albuterol til 2018 {puff HFA 108 (90 ([facility] 0.09 HFA 12:00: s_as_ Base) [facility] MG/ACTUAT 108 00 AM neede MCG/ACT Healt h Metered (90 EST d} Care) Dose Base) Inhaler MCG/AC [Proventil] T Proventil HFA 108 (90 Base) MCG/ACT 200 ACTUAT [place] .0 suspend Provent ks eCW3 Albuterol til 2018 {puff ed HFA 108 (90 ([facility] 0.09 HFA 12:00: s_as_ Base) [facility] MG/ACTUAT 108 00 AM neede MCG/ACT Healt h Metered (90 EST d} Care) Dose Base) Inhaler MCG/AC [Proventil] T Proventil HFA 108 (90 Base) MCG/ACT 200 ACTUAT [place] .0 suspend Provent ks eCW3 Albuterol til 2018 {puff ed HFA 108 (90 ([facility] 0.09 HFA 12:00: s_as_ Base) [facility] MG/ACTUAT 108 00 AM neede MCG/ACT Healt h Metered (90 EST d} Care) Dose Base) Inhaler MCG/AC [Proventil] T Proventil HFA 108 (90 Base) MCG/ACT 200 ACTUAT [place] .0 active Proventi l eCW3 Albuterol til 2018 {puff HFA 108 (90 ([facility] 0.09 HFA 12:00: s_as_ Base) [facility] MG/ACTUAT 108 00 AM neede MCG/ACT Healt h Metered (90 EST d} Care) Dose Base) Inhaler MCG/AC [Proventil] T Proventil HFA 108 (90 Base) MCG/ACT 200 ACTUAT [place] .0 suspend Provent ks eCW3 Albuterol til 2018 {puff ed HFA 108 (90 ([facility] 0.09 HFA 12:00: s_as_ Base) [facility] MG/ACTUAT 108 00 AM neede MCG/ACT Healt h Metered (90 EST d} Care) Dose Base) Inhaler MCG/AC [Proventil] T Proventil HFA 108 (90 Base) MCG/ACT 200 ACTUAT [place] .0 suspend Provent ks eCW3 Albuterol til 2018 {puff ed HFA 108 (90 ([facility] 0.09 HFA 12:00: s_as_ Base) [facility] MG/ACTUAT 108 00 AM neede MCG/ACT Healt h Metered (90 EST d} Care) Dose Base) Inhaler MCG/AC [Proventil] T Proventil HFA 108 (90 Base) MCG/ACT 200 ACTUAT [place] .0 suspend Provent ks eCW3 Albuterol til 2018 {puff ed HFA 108 (90 ([facility] 0.09 HFA 12:00: s_as_ Base) [facility] MG/ACTUAT 108 00 AM neede MCG/ACT Healt h Metered (90 EST d} Care) Dose Base) Inhaler MCG/AC [Proventil] T Proventil HFA 108 (90 Base) MCG/ACT 200 ACTUAT [place] .0 suspend Provent ks eCW3 Albuterol til 2018 {puff ed HFA 108 (90 ([facility] 0.09 HFA 12:00: s_as_ Base) [facility] MG/ACTUAT 108 00 AM neede MCG/ACT Healt h Metered (90 EST d} Care) Dose Base) Inhaler MCG/AC [Proventil] T Proventil HFA 108 (90 Base) MCG/ACT 200 ACTUAT [place] 09/27/ 2.0 suspend Provent il eCW3 Albuterol 2017 {puff ed HFA 108 (90 ([facility] 0.09 HFA 12:00: s_as_ Base) [facility] MG/ACTUAT 108 00 AM neede MCG/ACT Healt h Metered (90 EST d} Care) Dose Base) Inhaler MCG/AC [Proventil] T Proventil HFA 108 (90 Base) MCG/ACT Omeprazole Omepra 1.0 active Omeprazole eCW3 40 MG zole {caps 40 MG ([facility] Delayed 40 MG ule} [facility]) Capsule Metoclopram Metocl suspend Metoclop rami eCW3 carlyle 10 MG oprami ed de HCl 10 mg ([facility] Oral Tablet de HCl [facility] Metoclopram 10 mg Health carlyle HCl 10 Care) mg Omeprazole Omepra 1.0 active Omeprazole eCW3 40 MG zole {caps 40 MG ([facility] Delayed 40 MG ule} [facility]) Capsule Acetaminoph Fioric 1.0 suspend Fioricet eCW3 en 300 MG / et {caps ed 50-300-40 MG ([facility] butalbital 50-300 ule_a [facility] 50 MG / -40 MG s_nee Health Caffeine 40 ded} Care) MG Oral Capsule [Fioricet] Fioricet 50-300-40 MG Metoclopram Metocl suspend Metoclop rami eCW3 carlyle 10 MG oprami ed de HCl 10 mg ([facility] Tablet de HCl [facility] Metoclopram 10 mg Health carlyle HCl 10 Care) mg Metoclopram Metocl suspend Metoclop rami eCW3 carlyle 10 MG oprami ed de HCl 10 mg ([facility] Oral Tablet de HCl [facility] Metoclopram 10 mg Health carlyle HCl 10 Care) mg Metamucil Metamu suspend Metamucil eCW3 48.57 % cil ed 48.57 % ([place] 48.57 [facility] % Health Care) Melatonin + Melato active Melatonin + eCW3 L-Theanine rosina + L-Theanine - ([facility]) Biotin UNK active Biotin eCW3 ([facility]) Biotin UNK active Biotin eCW3 ([facility]) Acetaminoph Fioric 1.0 suspend Fioricet eCW3 en 300 MG / et {caps ed 50-300-40 MG ([facility] butalbital 50-300 ule_a [facility] 50 MG / -40 MG s_nee Health Caffeine 40 ded} Care) MG Oral Capsule [Fioricet] Fioricet 50-300-40 MG Propranolol Propra 1.0 suspend Proprano lol eCW3 Hydrochlori nolol {tabl ed HCl 40 MG ( [facility] de 40 MG HCl 40 et_on [facility] Oral Tablet MG _an_e Health Propranolol mpty_ Care) HCl 40 MG stoma ch} Acetaminoph Fioric 1.0 active Fioricet eCW3 en 300 MG / et {caps 50-300-40 MG ([facility] butalbital 50-300 ule_a [facility] 50 MG / -40 MG s_nee Health Caffeine 40 ded} Care) MG Oral Capsule [Fioricet] Fioricet 50-300-40 MG Acetaminoph Butalb active Butalbita l-A eCW3 en 325 MG / ital-A PAP-Caffein e ([facility] butalbital PAP-Ca 50-325-40 MG [facility] 50 MG / ffeine Health Caffeine 40 50-325 Care) MG Oral -40 MG Capsule Butalbital- APAP-Caffei ne 50-325-40 MG Omeprazole Omepra 1.0 active Omeprazole eCW3 40 MG zole {caps 40 MG ([facility] Delayed 40 MG ule} [facility]) Capsule Metoclopram Metocl suspend Metoclop rami eCW3 carlyle 10 MG oprami ed de HCl 10 mg ([facility] Oral Tablet de HCl [facility] Metoclopram 10 mg Health carlyle HCl 10 Care) mg Propranolol Propra 1.0 suspend Proprano lol eCW3 Hydrochlori nolol {tabl ed HCl 40 MG ( [facility] 40 MG HCl 40 et_on [facility] Oral Tablet MG _an_e Health Propranolol mpty_ Care) HCl 40 MG stoma ch} Centrum - Centru active Centrum - e CW3 m - ([facility]) Centrum - Centru active Centrum - e CW3 m - ([facility]) Melatonin + Melato suspend Melatoni n + eCW3 L-Theanine rosina + ed L-Theanine - ([facility]) Metamucil Metamu suspend Metamucil eCW3 48.57 % cil ed 48.57 % ([place] 48.57 [place] % Health Care) Metamucil Metamu active Metamucil e CW3 48.57 % cil 48.57 % ([place] 48.57 [place] % Health Care) Melatonin + Melato active Melatonin + eCW3 L-Theanine rosina + L-Theanine - ([facility]) Centrum - Centru active Centrum - e CW3 m - ([facility]) Melatonin + Melato suspend Melatoni n + eCW3 L-Theanine rosina + ed L-Theanine - ([facility]) Biotin UNK active Biotin eCW3 ([facility]) Acetaminoph Butalb active Butalbita l-A eCW3 en 325 MG / ital-A PAP-Caffein e ([facility]-Ca 50-325-40 MG [facility] 50 MG / ffeine Health Caffeine 40 50-325 Care) MG Oral -40 MG Capsule Butalbital- APAP-Caffei ne 50-325-40 MG Metoclopram Metocl suspend Metoclop rami eCW3 carlyle 10 MG oprami ed de HCl 10 mg ([facility] Oral Tablet de HCl [facility] Metoclopram 10 mg Health carlyle HCl 10 Care) mg Centrum - Centru active Centrum - e CW3 m - ([facility]) Biotin UNK active Biotin eCW3 ([facility]) Biotin UNK active Biotin eCW3 ([facility]) Metamucil Metamu suspend Metamucil eCW3 48.57 % cil ed 48.57 % ([place] 48.57 [place] % Health [facility]) Melatonin + Melato suspend Melatoni n + eCW3 L-Theanine rosina + ed L-Theanine - ([facility]) Biotin UNK active Biotin eCW3 ([facility]) Omeprazole Omepra 1.0 active Omeprazole eCW3 40 MG zole {caps 40 MG ([facility] Delayed 40 MG ule} [facility]) Capsule Propranolol Propra 1.0 suspend Proprano lol eCW3 Hydrochlori nolol {tabl ed HCl 40 MG ( [facility] 40 MG HCl 40 et_on [facility] Oral Tablet MG _an_e Health Propranolol mpty_ Care) HCl 40 MG stoma ch} Centrum - UNK active Centrum - eCW 3 ([facility]) Biotin UNK active Biotin eCW3 ([facility]) Centrum - UNK active Centrum - eCW 3 ([facility]) Acetaminoph Fioric 1.0 suspend Fioricet eCW3 en 300 MG / et {caps ed 50-300-40 MG ([facility] butalbital 50-300 ule_a [facility] 50 MG / -40 MG s_nee Health Caffeine 40 ded} Care) MG Oral Capsule [Fioricet] Fioricet 50-300-40 MG Acetaminoph Fioric 1.0 active Fioricet eCW3 en 300 MG / et {caps 50-300-40 MG ([facility] butalbital 50-300 ule_a [facility] 50 MG / -40 MG s_nee Health Caffeine 40 ded} Care) MG Oral Capsule [Fioricet] Fioricet 50-300-40 MG Vitamin B Vitami 1.0 active Vitamin B-1 2 eCW3 12 0.5 MG n B-12 {tabl 500 MCG ([facility] son Oral Tablet 500 et} [facility] Vitamin MCG Health B-12 500 Care) MCG Metoclopram Metocl suspend Metoclop rami eCW3 carlyle 10 MG oprami ed de HCl 10 mg ([facility] Oral Tablet de HCl [facility] Metoclopram 10 mg Health carlyle HCl 10 Care) mg Melatonin + Melato suspend Melatoni n + eCW3 L-Theanine rosina + ed L-Theanine - ([facility] - -[facility]) Centrum - Centru active Centrum - e CW3 m - ([facility]) Metamucil Metamu suspend Metamucil eCW3 48.57 % cil ed 48.57 % ([place] 48.57 [facility] % Health Care) Omeprazole Omepra 1.0 active Omeprazole eCW3 40 MG zole {caps 40 MG ([facility] Delayed 40 MG ule} [facility] Oral [facility]) Capsule Metamucil Metamu suspend Metamucil eCW3 48.57 % cil ed 48.57 % ([place] 48.57 [place] % [facility]) Biotin UNK active Biotin eCW3 ([facility]) Omeprazole Omepra 1.0 active Omeprazole eCW3 40 MG zole {caps 40 MG ([facility] Delayed 40 MG ule} [facility] Oral [facility]) Capsule Metamucil Metamu suspend Metamucil eCW3 48.57 % cil ed 48.57 % ([place] 48.57 [place] % [facility]) Melatonin + Melato suspend Melatoni n + eCW3 L-Theanine rosina + ed L-Theanine - ([facility]) Omeprazole Omepra 1.0 active Omeprazole eCW3 40 MG zole {caps 40 MG ([facility] Delayed 40 MG ule} [facility] Oral [facility]) Capsule Propranolol Propra 1.0 suspend Proprano lol eCW3 Hydrochlori nolol {tabl ed HCl 40 MG ( [facility] de 40 MG HCl 40 et_on [facility] Oral Tablet MG _an_e Health Propranolol mpty_ Care) HCl 40 MG stoma ch} Botox UNK active Botox eCW3 ([facility]) Propranolol Propra 1.0 suspend Proprano lol eCW3 Hydrochlori nolol {tabl ed HCl 40 MG ( [facility] de 40 MG HCl 40 et_on [facility] Oral Tablet MG _an_e Health Propranolol mpty_ Care) HCl 40 MG stoma ch} Propranolol Propra 1.0 suspend Proprano lol eCW3 Hydrochlori nolol {tabl ed HCl 40 MG ( [facility] de 40 MG HCl 40 et_on [facility] Oral Tablet MG _an_e Health Propranolol mpty_ Care) HCl 40 MG stoma ch} Melatonin + Melato suspend Melatoni n + eCW3 L-Theanine rosina + ed L-Theanine - ([facility]) Metoclopram Metocl suspend Metoclop rami eCW3 carlyle 10 MG oprami ed de HCl 10 mg ([facility] Oral Tablet de HCl [facility] Metoclopram 10 mg Health carlyle HCl 10 Care) mg Acetaminoph Fioric 1.0 suspend Fioricet eCW3 en 300 MG / et {caps ed 50-300-40 MG ([facility] butalbital 50-300 ule_a [facility] 50 MG / -40 MG s_nee Health Caffeine 40 ded} Care) MG Oral Capsule [Fioricet] Fioricet 50-300-40 MG Propranolol Propra 1.0 suspend Proprano lol eCW3 Hydrochlori nolol {tabl ed HCl 40 MG ( [facility] de 40 MG HCl 40 et_on [facility] Oral Tablet MG _an_e Health Propranolol mpty_ Care) HCl 40 MG stoma ch} Centrum - UNK active Centrum - eCW 3 ([facility]) Propranolol Propra 1.0 suspend Proprano lol eCW3 Hydrochlori nolol {tabl ed HCl 40 MG ( [facility] de 40 MG HCl 40 et_on [facility] Oral Tablet MG _an_e Health Propranolol mpty_ Care) HCl 40 MG stoma ch} Biotin UNK active Biotin eCW3 ([facility]) Omeprazole Omepra 1.0 active Omeprazole eCW3 40 MG zole {caps 40 MG ([facility] Delayed 40 MG ule} [facility]) Capsule Omeprazole Omepra 1.0 active Omeprazole eCW3 40 MG zole {caps 40 MG ([facility] Delayed 40 MG ule} [facility]) Capsule Propranolol Propra 1.0 active Propranol ol eCW3 Hydrochlori nolol {tabl HCl 20 MG ( [facility] de 20 MG HCl 20 et_on [facility] Oral Tablet MG _an_e Health Propranolol mpty_ Care) HCl 20 MG stoma ch} Metamucil Metamu suspend Metamucil eCW3 48.57 % cil ed 48.57 % ([facility] 48.57 [facility] % Health Care) Metoclopram Metocl suspend Metoclop rami eCW3 carlyle 10 MG oprami ed de HCl 10 mg ([facility] Oral Tablet de HCl [facility] Metoclopram 10 mg Health carlyle HCl 10 Care) mg Centrum - Centru active Centrum - e CW3 m - ([facility]) Metoclopram Metocl suspend Metoclop rami eCW3 carlyle 10 MG oprami ed de HCl 10 mg ([facility] Oral Tablet de HCl [facility] Metoclopram 10 mg Health carlyle HCl 10 Care) mg Melatonin + Melato suspend Melatoni n + eCW3 L-Theanine rosina + ed L-Theanine - ([facility]) Biotin UNK active Biotin eCW3 ([facility]) Centrum - Centru active Centrum - e CW3 m - ([facility]) Acetaminoph Fioric 1.0 suspend Fioricet eCW3 en 300 MG / et {caps ed 50-300-40 MG ([facility] butalbital 50-300 ule_a [facility] 50 MG / -40 MG s_nee Health Caffeine 40 ded} Care) MG Oral Capsule [Fioricet] Fioricet 50-300-40 MG Propranolol Propra 1.0 suspend Proprano lol eCW3 Hydrochlori nolol {tabl ed HCl 40 MG ( [place] de 40 MG HCl 40 et_on [facility] Oral Tablet MG _an_e Health Propranolol mpty_ Care) HCl 40 MG stoma ch} Metamucil Metamu suspend Metamucil eCW3 48.57 % cil ed 48.57 % ([place] 48.57 [place] % [facility] Care) Melatonin + Melato suspend Melatoni n + eCW3 L-Theanine rosina + ed L-Theanine - ([facility]) Metamucil Metamu suspend Metamucil eCW3 48.57 % cil ed 48.57 % ([place] 48.57 [place] % [facility] Care) Acetaminoph Fioric 1.0 active Fioricet eCW3 en 300 MG / et {caps 50-300-40 MG ([facility] butalbital 50-300 ule_a [facility] 50 MG / -40 MG s_nee Health Caffeine 40 ded} Care) MG Oral Capsule [Fioricet] Fioricet 50-300-40 MG Omeprazole Omepra 1.0 active Omeprazole eCW3 40 MG zole {caps 40 MG ([facility] Delayed 40 MG ule} [facility] Oral Care) Capsule Insurance Providers Payer name Policy type Policy ID Covered Covered alliance party's Policy P gutierrez / Coverage alliance party ID relationship to Singleton Inf ormation type singleton [facility] [id number] MEDICARE MEDICAID [id number] [place] [id number] SP [id number] HEALTHCARE (MEDICARE) [employer] [place] DUAL [id number] SP [id number] COMPLETE MEDICAID [id number] SP [id number] [employer] MEDICAID [id number] SP [id number] COMM PLAN STEVE [id number] SP [id number] MEDICARE ADV [facility]AN [facility] [id number] SP [id number] NON CAP [facility] [id number] SP [id number] NON CAP [facility] [id number] [place] [id number] NON CAP Problems, Conditions, and Diagnoses Code Display Name Description Problem Effective Data Type Dates Source(s) J31.0 Rhinitis, Rhinitis, Problem 11/03/2019 eCW3 ([facility] unspecified type unspecified type 12:00:00 AM [facility] EDT Care) E03.9 Subclinical Subclinical Problem 10/13/2019 eCW3 ([facility] hypothyroidism hypothyroidism 12:00:00 AM [facility] EST Care) G43.101 Migraine with aura Migraine with aura Problem 9 eCW3 ([facility] and with status and with status 12:00:00 AM [facility] migrainosus, not migrainosus, not EST Ca re) intractable intractable F43.21 Grieving Grieving Problem 06/18/2019 eCW3 ([facility] 12:00:00 AM [facility] EST Care) F43.20 Adjustment disorder Adjustment disorder Problem 019 eCW3 ([facility] in remission in remission 12:00:00 AM [facility] EDT Care) A49.02 Infection of skin Infection of skin Problem 03/04/2019 eCW3 ([facility] due to methicillin due to methicillin 12:00:00 AM [facility] resistant resistant EDT Care) Staphylococcus Staphylococcus aureus (MRSA) aureus (MRSA) A49.02 Infection of skin Infection of skin Problem 03/04/2019 eCW3 ([facility] due to methicillin due to methicillin 12:00:00 AM [facility] resistant resistant EDT Care) Staphylococcus Staphylococcus aureus (MRSA) aureus (MRSA) F33.9 Recurrent major Recurrent major Problem 07/29/2018 eCW3 ([facility] depressive disorder, depressive disorder, 12:00 :00 AM [facility] remission status remission status EST Ca re) unspecified unspecified F33.9 Recurrent major Recurrent major Problem 07/29/2018 eCW3 ([place] depressive disorder, depressive disorder, 12:00 :00 AM [facility] remission status remission status EST Ca re) unspecified unspecified F33.9 Recurrent major Recurrent major Problem 07/29/2018 eCW3 ([place] depressive disorder, depressive disorder, 12:00 :00 AM [facility] remission status remission status EST Ca re) unspecified unspecified S29.012A Strain of rhomboid Strain of rhomboid Problem 8 eCW3 ([facility] muscle, initial muscle, initial 12:00:00 AM [facility] er Health encounter encounter EDT Care) J32.1 Sinusitis chronic, Sinusitis chronic, Problem 8 eCW3 ([facility] frontal frontal 12:00:00 AM [facility] EDT Care) M51.36 Degenerative disc Degenerative disc Problem 06/14/2018 eCW3 ([facility] disease, lumbar disease, lumbar 12:00:00 AM [facility] er Health EDT Care) J32.1 Sinusitis chronic, Sinusitis chronic, Problem 8 eCW3 ([facility] frontal frontal 12:00:00 AM [facility] EDT Care) M51.36 Degenerative disc Degenerative disc Problem 06/14/2018 eCW3 ([facility] disease, lumbar disease, lumbar 12:00:00 AM [facility] er Health EDT Care) J32.1 Sinusitis chronic, Sinusitis chronic, Problem 8 eCW3 ([facility] frontal frontal 12:00:00 AM [facility] EDT Care) Z91.49 History of History of Problem 02/27/2018 eCW3 ([facility] psychological trauma psychological trauma 12:00 :00 AM [facility] EDT Care) Z91.49 History of History of Problem 02/27/2018 eCW3 ([facility] psychological trauma psychological trauma 12:00 :00 AM [facility] EDT Care) E73.9 Lactose intolerance Lactose intolerance Problem 018 eCW3 ([facility] 12:00:00 AM [facility] EDT Care) E73.9 Lactose intolerance Lactose intolerance Problem 018 eCW3 ([facility] 12:00:00 AM [facility] EDT Care) K21.9 Gastroesophageal Gastroesophageal Problem 09/27/2017 eC W3 ([facility] reflux disease reflux disease 12:00:00 AM [facility] without esophagitis without esophagitis EST Care) G43.009 Migraine without Migraine without Problem 09/27/2017 eC W3 ([facility] aura and without aura and without 12:00:00 AM [facility] status migrainosus, status migrainosus, EST Care) not intractable not intractable K21.9 Gastroesophageal Gastroesophageal Problem 09/27/2017 eC W3 ([facility] reflux disease reflux disease 12:00:00 AM [facility] without esophagitis without esophagitis EST Care) K21.9 Gastroesophageal Gastroesophageal Problem 09/27/2017 eC W3 ([facility] reflux disease reflux disease 12:00:00 AM [facility] without esophagitis without esophagitis EST Care) G43.009 Migraine without Migraine without Problem 09/27/2017 eC W3 ([facility] aura and without aura and without 12:00:00 AM [facility] status migrainosus, status migrainosus, EST Care) not intractable not intractable F41.8 Depression with Depression with Problem 09/12/2016 eCW3 ([facility] anxiety anxiety 12:00:00 AM [facility] EST Care) F41.8 Depression with Depression with Problem 09/12/2016 eCW3 ([facility] anxiety anxiety 12:00:00 AM [facility] EST Care) F41.8 Depression with Depression with Problem 09/12/2016 eCW3 ([facility] anxiety anxiety 12:00:00 AM [facility] EST Care) G43.109 Migraine with aura Migraine with aura Problem 6 eCW3 ([facility] and without status and without status 12:00:00 AM [facility] migrainosus, not migrainosus, not EDT Ca re) intractable intractable G43.109 Migraine with aura Migraine with aura Problem 6 eCW3 ([facility] and without status and without status 12:00:00 AM [facility] migrainosus, not migrainosus, not EDT Ca re) intractable intractable Surgeries/Procedures Procedure Description Date Indications Data Source(s) Injection, ketorolac 03/05/2019 eCW3 ([facility] tromethamine, per 15 12:00:00 AM EDT [facility] Care) mg Injection, ketorolac 03/04/2019 eCW3 ([facility] tromethamine, per 15 12:00:00 AM EDT [facility]) mg Injection, ketorolac 10/31/2018 eCW3 ([facility] tromethamine, per 15 12:00:00 AM EDT [facility]) mg Injection, ketorolac 10/15/2018 eCW3 ([facility] tromethamine, per 15 12:00:00 AM EST [facility]) mg Results ID Date Data Source [id number] 2020 06:45:00 PM EDT [facility] Name Value Range Interpretation Code Description Data Norma rce(s) Supporting Document(s ) COV2 [facility] This lab was ordered by [place] and reported by [facility]. ID Date Data Source [id number] 01/27/2020 12:00:00 AM EDT [facility] Name Value Range Interpretation Code Description Data Norma rce(s) Supporting Document(s ) 2019-nCoV [facility] RNA XXX RADHA+probe- Imp This lab was ordered by KETTY and reported by [facility]. Procedure Social History Code Duration Value Status Description Data Source(s ) Smoking 04/14/2020 Never Smoker completed Never Smoker eCW3 ([facility] 12:00:00 AM [facility]) Smoking 03/29/2020 Never Smoker completed Never Smoker eCW3 ([facility] 12:00:00 AM [facility]) Smoking 03/29/2020 Never Smoker completed Never Smoker eCW3 ([facility] 12:00:00 AM [facility]) Smoking 02/25/2020 Never Smoker completed Never Smoker eCW3 ([facility] 12:00:00 AM [facility]) Smoking 02/25/2020 Never Smoker completed Never Smoker eCW3 ([facility] 12:00:00 AM [facility]) Smoking 01/28/2020 Never Smoker completed Never Smoker eCW3 ([facility] 12:00:00 AM [facility]) Smoking 01/20/2020 Never Smoker completed Never Smoker eCW3 ([facility] 12:00:00 AM [facility]) Smoking 11/05/2019 Never Smoker completed Never Smoker eCW3 ([facility] 12:00:00 AM [facility]) Smoking 03/05/2019 Never Smoker completed Never Smoker eCW3 ([facility] 12:00:00 AM [facility]) Smoking 12/31/2018 Never Smoker completed Never Smoker eCW3 ([facility] 12:00:00 AM [facility]) Never Smoker completed Never Smoker eCW3 ([facility]) Never Smoker completed Never Smoker eCW3 ([facility]) Never Smoker completed Never Smoker eCW3 ([facility]) Never Smoker completed Never Smoker eCW3 ([facility]) Never Smoker completed Never Smoker eCW3 ([facility] Never Smoker completed Never Smoker eCW3 ([facility]) Never Smoker completed Never Smoker eCW3 ([facility]) Never Smoker completed Never Smoker eCW3 ([facility]) Smoking Unknown if ever completed Unknown if ever Jonathan Dinero [facility] Never Smoker completed Never Smoker eCW3 ([facility]) Never Smoker completed Never Smoker eCW3 ([facility]) Vital Signs ID Date Data Source UNK Name Value Range Interpretation Code Description Data Source(s) Diastolic blood 73 mm[Hg] 73 mm[Hg] eCW3 ([facility]) Systolic blood 124 mm[Hg] 124 mm[Hg] eCW3 ([facility]) Body temperature 98.8 [degF] 98.8 [degF] eCW3 ( [facility]) Body mass index 28.95 kg/m2 28.95 kg/m2 eCW3 ([facility] (BMI) [Ratio] [facility]) Body weight 174 [lb_av] 174 [lb_av] eCW3 ([facility]) Body height 65 [in_i] 65 [in_i] eCW3 ([facility]) Diastolic blood 72 mm[Hg] 72 mm[Hg] eCW3 ([facility]) Systolic blood 105 mm[Hg] 105 mm[Hg] eCW3 ([facility]) Body temperature 97.9 [degF] 97.9 [degF] eCW3 ( [facility]) Body mass index 29.12 kg/m2 29.12 kg/m2 eCW3 ([facility] (BMI) [Ratio] [facility]) Body weight 175 [lb_av] 175 [lb_av] eCW3 ([facility]) Body height 65 [in_i] 65 [in_i] eCW3 ([facility]) Diastolic blood 66 mm[Hg] 66 mm[Hg] eCW3 ([facility]) Systolic blood 106 mm[Hg] 106 mm[Hg] eCW3 ([facility]) Body temperature 98.1 [degF] 98.1 [degF] eCW3 ( [facility]) Body mass index 29.62 kg/m2 29.62 kg/m2 eCW3 ([facility] (BMI) [Ratio] [facility]) Body weight 178 [lb_av] 178 [lb_av] eCW3 ([facility]) Body height 65 [in_i] 65 [in_i] eCW3 ([facility]) Diastolic blood 74 mm[Hg] 74 mm[Hg] eCW3 ([facility]) Systolic blood 126 mm[Hg] 126 mm[Hg] eCW3 ([facility]) Body temperature 97.1 [degF] 97.1 [degF] eCW3 ( [facility]) Body mass index 29.62 kg/m2 29.62 kg/m2 eCW3 ([facility] (BMI) [Ratio] [facility]) Body weight 178 [lb_av] 178 [lb_av] eCW3 ([facility]) Body height 65 [in_i] 65 [in_i] eCW3 ([facility]) Diastolic blood 70 mm[Hg] 70 mm[Hg] eCW3 ([facility]) Systolic blood 123 mm[Hg] 123 mm[Hg] eCW3 ([facility]) Body temperature 98.2 [degF] 98.2 [degF] eCW3 ( [facility]) Body mass index 29.62 kg/m2 29.62 kg/m2 eCW3 ([facility] (BMI) [Ratio] [facility]) Body weight 178 [lb_av] 178 [lb_av] eCW3 ([facility]) Body height 65 [in_i] 65 [in_i] eCW3 ([facility]) Diastolic blood 58 mm[Hg] 58 mm[Hg] eCW3 ([facility]) Systolic blood 99 mm[Hg] 99 mm[Hg] eCW3 ([facility]) Body temperature 97.0 [degF] 97.0 [degF] eCW3 ( [facility]) Body mass index 29.45 kg/m2 29.45 kg/m2 eCW3 ([facility] (BMI) [Ratio] [facility]) Body weight 177 [lb_av] 177 [lb_av] eCW3 ([facility]) Body height 65 [in_i] 65 [in_i] eCW3 ([facility]) Diastolic blood 66 mm[Hg] 66 mm[Hg] eCW3 ([facility]) Systolic blood 115 mm[Hg] 115 mm[Hg] eCW3 ([facility]) Body temperature 97.7 [degF] 97.7 [degF] eCW3 ( [facility]) Body mass index 29.62 kg/m2 29.62 kg/m2 eCW3 ([facility] (BMI) [Ratio] [facility]) Body weight 178 [lb_av] 178 [lb_av] eCW3 ([facility]) Body height 65 [in_i] 65 [in_i] eCW3 ([facility]) Diastolic blood 70 mm[Hg] 70 mm[Hg] eCW3 ([facility]) Systolic blood 104 mm[Hg] 104 mm[Hg] eCW3 ([facility]) Body temperature 98.0 [degF] 98.0 [degF] eCW3 ( [facility]) Body mass index 29.45 kg/m2 29.45 kg/m2 eCW3 ([facility] (BMI) [Ratio] [facility]) Body weight 177 [lb_av] 177 [lb_av] eCW3 ([facility]) Body height 65 [in_i] 65 [in_i] eCW3 ([facility]) Patient Treatment Plan of Care Planned Activity Planned Date Details Description Data Source (s) Betamethasone 0.5 MG/ML / 03/19/2020 12:00:00 eCW3 ([facility] Clotrimazole 10 MG/ML AM [facility]) Topical Cream Hydroxyzine Hydrochloride 03/19/2020 12:00:00 eCW3 ([facility] 50 MG Oral Tablet AM ED Health Car e) 2 ML Ketorolac 07/22/2019 12:00:00 eCW3 ( [employer] [facility] Tromethamine 30 MG/ML [facility]) Cartridge Acetaminophen 300 MG / eCW3 ([facility] butalbital 50 MG / Health Ca re) Caffeine 40 MG Oral Capsule [Fioricet]
--- NOTE | 2020-05-14 07:19 | PDOC ---
History of Present Illness - General Chief Complaint: Migraine Headache Stated Complaint: MIGRAINE Time Seen by Provider: 05/14/20 07:18 - History of Present Illness Initial Comments: 60 YOF h/o migraines, hypothyroidism, asthma presents with headache since this AM. Patient reports headache is 9/10, left side of head and face, neck, and shoulder/chest, throbbing/aching in intensity, took home fiorcet w/o relief, reports lying flat makes it worse. Was here in sep for similar sx, was treated with reglan, benadryl, toradol. Also c/o palpitations and SOB and nausea since today. Denies CP, V/D, fever, chills, recent sick contacts, recent travel. Constitutional: No Weight Change, No Fever, No Chills, No Night Sweats, No Fati reed, No Malaise ENT/Mouth: No Hearing Changes, No Ear Pain, No Nasal Congestion, No Sinus Pain, No Hoarseness, No sore throat, No Rhinorrhea, No Swallowing Difficulty Eyes: No Eye Pain, No Swelling, No Redness, No Foreign Body, No Discharge, No Vision Changes Cardiovascular: No Chest Pain, +SOB, No PND, No Dyspnea on Exertion, No Orthopnea, No Claudication, No Edema, + Palpitations Respiratory: No Cough, No Sputum, No Wheezing, No Smoke Exposure, No Dyspnea Gastrointestinal: + Nausea, No Vomiting, No Diarrhea, No Constipation, No Pain, No Heartburn, No Anorexia, No Dysphagia, No Hematochezia, No Melena, No Flatulence, No Jaundice Genitourinary: No Dysmenorrhea, No DUB, No Dyspareunia, No Dysuria, No Urinary Frequency, No Hematuria, No Urinary Incontinence, No Urgency, No Flank Pain, No Urinary Flow Changes, No Hesitancy Musculoskeletal: No Arthralgias, No Myalgias, No Joint Swelling, No Joint Stiffness, No Back Pain, No Neck Pain, No Injury History Skin: No Skin Lesions, No Pruritis, No Hair Changes, No Breast/Skin Changes, No Nipple Discharge Neuro: No Weakness, No Numbness, No Paresthesias, No Loss of Consciousness, No Syncope, No Dizziness, + Headache, No Coordination Changes, No Recent Falls Psych: No Anxiety/Panic, No Depression, No Insomnia, No Personality Changes, No Delusions, No Rumination, No SI/HI/AH/VH, No Social Issues, No Memory Changes, No Violence/Abuse Hx., No Eating Concerns Heme/Lymph: No Bruising, No Bleeding, No Transfusions History, No Lympha denopathy Endocrine: No Polyuria, No Polydipsia, No Temperature Intolerance Past History - Medical History Allergies/Adverse Reactions: Allergies Allergy/AdvReac Type Severity Reaction Status Date / Time cyclobenzaprine HCl Allergy Severe near Verified 05/14/20 06:57 [From Flexeril] syncope Home Medications: Ambulatory Orders Butalb/Acetaminophen/Caffeine [Fioricet 50-300-40 mg Capsule] 1 each PO QID PRN #20 capsule 08/04/18 Albuterol Sulfate Inhaler - [Ventolin Hfa Inhaler -] 1 - 2 inh PO QID 05/14/20 Omeprazole 0 mg PO DAILY 05/14/20 Anemia: No Asthma: Yes Cancer: No Cardiac Disorders: Yes (ANGINA) CVA: No COPD: No CHF: No DVT: No Dementia: No Diabetes: No GI Disorders: Yes (hiatal hernia,GASTRITIS, ulcer) Disorders: No HTN: No Hypercholesterolemia: No Liver Disease: No Seizures: No Thyroid Disease: No - Surgical History Abdominal Surgery: Yes (tubal ligation) Appendectomy: No Cardiac Surgery: No Cholecystectomy: No Lung Surgery: No Neurologic Surgery: No Orthopedic Surgery: No - Reproductive History Is Patient Now?: No - Immunization History Td Vaccination: Yes TDAP Vaccination: No Immunization Up to Date: Yes - Psycho-Social/Smoking History Smoking Status: No Smoking History: Never smoked Years of Tobacco Use: 0 Have you smoked in the past 12 months: No Number of Cigarettes Smoked Daily: 0 Cigars Per Day: 0 Information on smoking cessation initiated: No - Substance Abuse Hx (Audit-C & DAST Scrn) How often the patient has a drink containing alcohol: Never Score: In Men: 4 or > Positive; In Women: 3 or > Positive: 0 Screen Result (Pos requires Nsg. Audit-10AR): Negative In the last yr the pt used illegal drug/Rx for NonMed reason: No Score: Yes response is considered Positive: 0 Screen Result (Positive result requires Nsg. DAST-10): Negative *Physical Exam - Vital Signs Last Vital Signs Temp Pulse Resp BP Pulse Ox 98.2 F 80 20 132/74 99 05/14/20 06:57 05/14/20 06:57 05/14/20 06:57 05/14/20 06:57 05/14/20 06:57 - Physical Exam General Appearance: Yes: Nourished, Appropriately Dressed, Moderate Distress HEENT: positive: EOMI, RONN, Normal ENT Inspection, Normal Voice, Symmetrical Neck: positive: Trachea midline, Normal Thyroid Respiratory/Chest: positive: Lungs Clear, Normal Breath Sounds Cardiovascular: positive: Regular Rhythm, Regular Rate, S1, S2 Musculoskeletal: positive: Normal Inspection, CVA Tenderness Extremity: positive: Normal Capillary Refill, Normal Inspection Integumentary: positive: Normal Color, Dry, Warm Neurologic: positive: infrastructure engineer II-XII NML intact, Fully Oriented, Alert, Normal Mood/Affect, Normal Response, Motor Strength 12/15 ED Treatment Course - LABORATORY CBC & Chemistry Diagram: 05/14/20 08:09 05/14/20 08:09 Medical Decision Making - Medical Decision Making 60 YOF h/o migraines and hypothyroidism presents with headache and nausea and palps/sob since this AM. - vitals wnl - exam unremarkable - will do cbc, cmp, ekg, cxr - will give reglan, benadryl, toradol and reassess reassess: - patient reports feeling better - labs, ekg, cxr are wnl - will dc to fu with neuro Discharge - Discharge Information Problems reviewed: Yes Clinical Impression/Diagnosis: Migraine Condition: Good - Admission No - Follow up/Referral Referrals: Rivera Mercedes MD [Primary Care Provider] - - Patient Discharge Instructions Additional Instructions: You were seen in the ER for a migraine. You received labs and medication. Your labs were normal. You took medication for your symptoms and reported feeling better. You were considered medically stable and safe to return home. Please follow up with Dr. Almeida regarding your visit to the emergency department. Return to the emergency department if: You have severe pain. You have numbness or weakness on one side of your face or body. You have a headache that occurs after a blow to the head, a fall, or other trauma. You have a headache, are forgetful or confused, or have trouble speaking. You have a headache, stiff neck, and a fever. Contact your healthcare provider if: You have a constant headache and are vomiting. You have a headache each day that does not get better, even after treatment. You have changes in your headaches, or new symptoms that occur when you have a headache. You have questions or concerns about your condition or care. - Post Discharge Activity
--- NOTE | 2020-05-14 07:29 | PDOC ---
Attending Attestation - Resident Resident Name: Mark Anthony Dela Cruz - ED Attending Attestation I have performed the following: I have examined & evaluated the patient, The case was reviewed & discussed with the resident, I agree w/resident's findings & plan, Exceptions are as noted - HPI HPI: 05/14/20 07:29 60y F hx of migraine headaches, hypothyroidism presents with headache consistent with her prior migrain headaches, but no response to her home meds. Patient states that headache started yesterday was gradual onset she took a Fioricet without significant improvement. The headache is slowly gotten worse she does endorse some photophobia and nausea. She denies any vision changes, focal numbness, tingling, weakness, fever, chills. Patient does endorse a brief episode of palpitations this morning lasting for 5 minutes without associated chest pain, shortness of breath, dyspnea exertion, lightheadedness. Patient notes that the headache is consistent with prior headaches. Patient does note specific triggers such as lack of sleep, changes in diet. She notes that she has not been sleeping very well the last couple of days due to family stressors. exam: GENERAL: The patient is awake, alert, and fully oriented, Nontoxic - in no acute distress. HEAD: Normocephalic, atraumatic. EYES: extraocular movements intact, sclera anicteric, conjunctiva clear. ENT: Normal voice, Moist mucous membranes. NECK: Normal range of motion, supple LUNGS: Breath sounds equal, clear to auscultation bilaterally. No wheezes, no rhonchi, no rales. HEART: Regular rate and rhythm, normal S1 and S2 without murmur, rub or gallop. ABDOMEN: Soft, nontender, No guarding, no rebound. No CVA tenderness EXTREMITIES: Normal range of motion, no edema. NEUROLOGICAL: No facial assymetry, Normal speech, moving all 4 extremity spontaneously and symmetrically PSYCH: Normal mood, normal affect. SKIN: Warm, Dry, normal turgor, Suspect migraine headache, will treat supportively. As headache is consistent with prior and is gradual onset, do not think s evere/vascular headaches. no red flags will reassess - Physicial Exam PE: 05/15/20 12:42 see above - Medical Decision Making 05/14/20 10:48 Pt feeling improved. anticipate dc labs reviewed Heart Score/ECG Review - ECG Impressions Comment:: 05/14/20 10:47 Twelve-lead EKG was performed and reviewed by me. There is normal sinus rhythm with a normal rate. Rate of 74 The axis is normal. The intervals are normal. There are no ST or T wave abnormalities. Q waves in lead III Discharge - Discharge Information Problems reviewed: Yes Clinical Impression/Diagnosis: Migraine Qualifiers: Migraine type: other Status migrainosus presence: without status migrainosus Intractability: not intractable Qualified Code(s): G43.809 - Other migraine, not intractable, without status migrainosus Condition: Good Disposition: HOME - Admission No - Follow up/Referral Referrals: Rivera Mercedes MD [Primary Care Provider] - - Patient Discharge Instructions Additional Instructions: You were seen in the ER for a migraine. You received labs and medication. Your labs were normal. You took medication for your symptoms and reported feeling better. You were considered medically stable and safe to return home. Please follow up with Dr. Almeida regarding your visit to the emergency department. Return to the emergency department if: You have severe pain. You have numbness or weakness on one side of your face or body. You have a headache that occurs after a blow to the head, a fall, or other trauma. You have a headache, are forgetful or confused, or have trouble speaking. You have a headache, stiff neck, and a fever. Contact your healthcare provider if: You have a constant headache and are vomiting. You have a headache each day that does not get better, even after treatment. You have changes in your headaches, or new symptoms that occur when you have a headache. You have questions or concerns about your condition or care. - Post Discharge Activity
[2020-05-14] MEDS ORDERED: METOCLOPRAMIDE HCL INJECTION 10 MG/2 ML VIAL IVPUSH ONE (07:39)
[2020-05-14] MEDS ORDERED: SODIUM CHLORIDE 0.9% 500 ML INFUS.BAG IV ONE (07:56)
[2020-05-14] MEDS ORDERED: METOCLOPRAMIDE HCL INJECTION 10 MG/2 ML VIAL ONE (07:57)
[2020-05-14 08:22] LABS: BASO % 1.3 % (0-2.0); EOS % 3.3 % (0-4.5); HEMATOCRIT 39.6 % (32.4-45.2); HEMOGLOBIN 13.9 GM/dL (10.7-15.3); LYMPH % 32.1 % (8-40); MCH 31.9 pg (25.7-33.7); MEAN PLT VOLUME 9.2 fl (7.5-11.1); NEUT % 56.3 % (42.8-82.8); PLATELET COUNT 197 K/MM3 (134-434); RBC 4.35 M/mm3 (3.60-5.2); RDW 14.2 % (11.6-15.6); WHITE BLOOD COUNT 5.1 K/mm3 (4.0-10.0)
[2020-05-14 08:48] LABS: ALBUMIN 3.7 g/dl (3.4-5.0); ALK PHOS 73 U/L (45-117); ANION GAP 5 MMOL/L (8-16); BILIRUBIN,TOTAL 0.3 mg/dL (0.2-1); BLOOD UREA NITROGEN 10.1 mg/dL (7-18); CALCIUM 9.4 mg/dL (8.5-10.1); CHLORIDE 106 mmol/L (98-107); CO2 29 mmol/L (21-32); CREATININE 0.7 mg/dL (0.55-1.3); GLUCOSE,RANDOM 90 mg/dL (74-106); POTASSIUM 4.1 mmol/L (3.5-5.1); SGOT/AST 19 U/L (15-37); SGPT/ALT 20 U/L (13-61); SODIUM 140 mmol/L (136-145); TOT PROT 7.6 g/dl (6.4-8.2)
[2020-05-14] MEDS ORDERED: KETOROLAC TROMETHAMINE 30 MG/1 ML VIAL IVPUSH ONE (09:04)
[2020-05-14] MEDS ORDERED: KETOROLAC TROMETHAMINE 30 MG/1 ML VIAL ONE (09:19)
--- NOTE | 2020-05-14 10:29 | EKG ---
Test Reason : Blood Pressure : / mmHG Vent. Rate : 074 BPM Atrial Rate : 074 BPM P-R Int : 202 ms QRS Dur : 074 ms QT Int : 398 ms P-R-T Axes : 068 006 061 degrees QTc Int : 441 ms NORMAL SINUS RHYTHM POSSIBLE INFERIOR INFARCT , AGE UNDETERMINED WHEN COMPARED WITH ECG OF 15-SEP-2019 10:30, NO SIGNIFICANT CHANGE WAS FOUND Confirmed by MAMI PALAFOX MD ([id number]) on 05/14/2020 10:29:15 AM Referred By: Confirmed By:MAMI PALAFOX MD
[2020-05-14 11:31] VITALS: BP 135/78; PULSE 81; TEMP 98
== END 2020-05-14 11:46 | disposition home or self-care (01) ==
LOC: JER 06:40
PROC: 3E033NZ Introduction of Analgesics, Hypnotics, Sedatives into Peripheral Vein, Percutaneous Approach (ICD-10-PCS; principal; 2020-05-14)
PROC: 3E033GC Introduction of Other Therapeutic Substance into Peripheral Vein, Percutaneous Approach (ICD-10-PCS; 2020-05-14)
DX: G43.909 Migraine, unspecified, not intractable, without status migrainosus (principal)
CPT/HCPCS: 36415; 71046-TC-FY; 80053; 82550; 84484; 85025; 93005; 93010; 99285-25

== ENCOUNTER 2020-08-18 14:29 | Emergency (ER) | payer OTHER ==
[2020-08-18 14:53] VITALS: BP 131/74; PULSE 90; TEMP 98.1; BMI 25.8
[2020-08-18] MEDS ORDERED: ACETAMINOPHEN 500 MG TABLET (FP) PO ONE (15:14)
[2020-08-18] MEDS ORDERED: ACETAMINOPHEN 500 MG TABLET (FP) ONE (15:16)
== END 2020-08-18 17:11 | disposition home or self-care (01) ==
LOC: JERFT 14:29
DX: M25.512 Pain in left shoulder (principal)
CPT/HCPCS: 73030-TC-LT-FY; 99283-25

== ENCOUNTER 2020-10-31 08:01 | Emergency (ER) | payer OTHER ==
[2020-10-31 08:09] VITALS: TEMP 97; BMI 27.4
[2020-10-31 09:04] LABS: BASO % 1.2 % (0-2.0); HEMATOCRIT 40.2 % (32.4-45.2); HEMOGLOBIN 13.8 GM/dL (10.7-15.3); LYMPH % 28.7 % (8-40); MCH 31.5 pg (25.7-33.7); MCHC 34.4 g/dl (32.0-36.0); MEAN CELL VOLUME 91.6 fl (80-96); MONO % 8.2 % (3.8-10.2); NEUT % 59.9 % (42.8-82.8); PLATELET COUNT 218 K/MM3 (134-434); RBC 4.39 M/mm3 (3.60-5.2); RDW 13.9 % (11.6-15.6); WHITE BLOOD COUNT 5.5 K/mm3 (4.0-10.0)
[2020-10-31 09:09] LABS: INR 0.97 (0.83-1.09); PROTHROMBIN TIME (PATIENT) 11.9 SEC (9.7-13.0)
[2020-10-31 09:12] LABS: ACTIVATED PTT 35.3 SECONDS (25.2-36.5)
[2020-10-31 09:30] LABS: CHLORIDE 108 mmol/L (98-107); SODIUM 142 mmol/L (136-145)
[2020-10-31 09:31] LABS: ANION GAP 6 MMOL/L (8-16); CALCIUM 9.5 mg/dL (8.5-10.1); CO2 28 mmol/L (21-32); GLUCOSE,RANDOM 78 mg/dL (74-106)
[2020-10-31 09:35] LABS: CREATININE 0.8 mg/dL (0.55-1.3)
[2020-10-31 12:20] VITALS: BP 125/82; PULSE 72
== END 2020-10-31 12:43 | disposition home or self-care (01) ==
LOC: JER 08:01
DX: R00.2 Palpitations (principal)
CPT/HCPCS: 36415; 71046-TC-FY; 80048; 84443; 84484; 85025; 85610; 85730; 93005; 93010; 99285-25

== ENCOUNTER 2020-11-13 03:49 | Emergency (ER) | payer OTHER ==
[2020-11-13 04:06] VITALS: BMI 26.6
[2020-11-13] MEDS ORDERED: KETOROLAC TROMETHAMINE 30 MG/1 ML VIAL IM ONE (04:33)
[2020-11-13] MEDS ORDERED: KETOROLAC TROMETHAMINE 30 MG/1 ML VIAL ONE (04:35)
[2020-11-13] MEDS ORDERED: PROCHLORPERAZINE MALEATE 5 MG TABLET PO ONE (05:19)
[2020-11-13] MEDS ORDERED: PROCHLORPERAZINE MALEATE 5 MG TABLET ONE (05:20)
[2020-11-13 06:07] VITALS: BP 123/82; PULSE 72; TEMP 97.7
[2020-11-13] MEDS ORDERED: ACETAMINOPHEN 500 MG TABLET (FP) PO ONE (06:27)
[2020-11-13] MEDS ORDERED: ACETAMINOPHEN 325 MG TABLET (FP) ONE (06:42)
== END 2020-11-13 06:46 | disposition home or self-care (01) ==
LOC: JER 03:49
PROC: 3E0233Z Introduction of Anti-inflammatory into Muscle, Percutaneous Approach (ICD-10-PCS; principal; 2020-11-13)
DX: G43.009 Migraine without aura, not intractable, without status migrainosus (principal)
CPT/HCPCS: 96372; 99284-25

== ENCOUNTER 2020-11-29 05:17 | Emergency (ER) | payer OTHER ==
[2020-11-29 05:40] VITALS: BP 120/75; PULSE 86; TEMP 97.4; BMI 26.7
[2020-11-29] MEDS ORDERED: SUMATRIPTAN SUCCINATE 6 MG/0.5 ML VIAL SQ ONE (05:52)
[2020-11-29] MEDS ORDERED: KETOROLAC TROMETHAMINE 10 MG TABLET PO ONE (06:55)
[2020-11-29] MEDS ORDERED: diphenhydrAMINE HCL 25 MG CAPSULE (FP) PO ONE (06:55)
[2020-11-29] MEDS ORDERED: METOCLOPRAMIDE HCL 10 MG TABLET (FP) PO ONE (06:56)
== END 2020-11-29 08:33 | disposition home or self-care (01) ==
LOC: JER 05:17
DX: R51.9 Headache, unspecified (principal)
CPT/HCPCS: 99283-25

== ENCOUNTER 2021-05-16 08:38 | Emergency (ER) | payer OTHER ==
[2021-05-16 08:43] VITALS: BP 134/59; PULSE 88; TEMP 98.4; BMI 27.4
[2021-05-16] MEDS ORDERED: SODIUM CHLORIDE 0.9% 500 ML INFUS.BAG IV ONE (09:38)
[2021-05-16] MEDS ORDERED: KETOROLAC TROMETHAMINE 30 MG/1 ML VIAL IVPUSH ONE (09:38)
[2021-05-16] MEDS ORDERED: KETOROLAC TROMETHAMINE 30 MG/1 ML VIAL ONE ×2 (10:36→10:40)
== END 2021-05-16 11:44 | disposition home or self-care (01) ==
LOC: JERFT 08:38
PROC: 3E023GC Introduction of Other Therapeutic Substance into Muscle, Percutaneous Approach (ICD-10-PCS; principal; 2021-05-16)
PROC: 3E0333Z Introduction of Anti-inflammatory into Peripheral Vein, Percutaneous Approach (ICD-10-PCS; 2021-05-16)
DX: R21 Rash and other nonspecific skin eruption (principal); G43.909 Migraine, unspecified, not intractable, without status migrainosus; T78.40XA Allergy, unspecified, initial encounter
CPT/HCPCS: 99284-25

== ENCOUNTER → 2021-05-18 | Emergency (ER) | payer OTHER ==
[2021-05-18 09:39] VITALS: BP 118/75; PULSE 94; TEMP 98.4
== END ==
LOC: JERFT 09:16
DX: M25.532 Pain in left wrist (principal)
CPT/HCPCS: 99281-25

== ENCOUNTER 2021-07-02 18:01 | Emergency (ER) | payer OTHER ==
[2021-07-02 18:26] VITALS: BP 144/72; PULSE 85; TEMP 97.2; BMI 26.6
[2021-07-02] MEDS ORDERED: KETOROLAC TROMETHAMINE 30 MG/1 ML VIAL IVPUSH ONE (18:50)
[2021-07-02] MEDS ORDERED: METOCLOPRAMIDE HCL INJECTION 10 MG/2 ML VIAL IVPB ONE (18:50)
[2021-07-02] MEDS ORDERED: SODIUM CHLORIDE 1,000 ML IV STA (18:51)
[2021-07-02] MEDS ORDERED: KETOROLAC TROMETHAMINE 30 MG/1 ML VIAL ONE (19:29)
[2021-07-02] MEDS ORDERED: METOCLOPRAMIDE HCL INJECTION 10 MG/2 ML VIAL ONE (19:30)
== END 2021-07-02 21:04 ==
LOC: JER 18:01
PROC: 3E0333Z Introduction of Anti-inflammatory into Peripheral Vein, Percutaneous Approach (ICD-10-PCS; principal; 2021-07-02)
PROC: 3E033GC Introduction of Other Therapeutic Substance into Peripheral Vein, Percutaneous Approach (ICD-10-PCS; 2021-07-02)
PROC: 3E0337Z Introduction of Electrolytic and Water Balance Substance into Peripheral Vein, Percutaneous Approach (ICD-10-PCS; 2021-07-02)
DX: G43.909 Migraine, unspecified, not intractable, without status migrainosus (principal)
CPT/HCPCS: 93005; 93010; 96361; 96374; 96375; 99284-25

== ENCOUNTER 2022-02-15 21:32 | Emergency (ER) | payer MEDICARE, OTHER ==
[2022-02-15 21:39] VITALS: BP 125/74; PULSE 74; TEMP 98; BMI 26.6
== END 2022-02-15 23:59 | disposition left against medical advice (07) ==
LOC: JER 21:32
DX: R51.9 Headache, unspecified (principal)
CPT/HCPCS: 99283-25

== ENCOUNTER 2022-03-10 08:10 | Emergency (ER) | payer MEDICARE, OTHER ==
[2022-03-10 08:27] VITALS: BP 111/74; PULSE 83; RESP 16; TEMP 96.2; BMI 25.8
[2022-03-10] MEDS ORDERED: IBUPROFEN 400 MG TABLET (FP) PO ONE ×2 (08:40→09:54)
[2022-03-10] MEDS ORDERED: ACETAMINOPHEN 325 MG TABLET (FP) PO ONE (08:40)
[2022-03-10] MEDS ORDERED: ACETAMINOPHEN 325 MG TABLET (FP) ONE (09:53)
== END 2022-03-10 11:15 | disposition home or self-care (01) ==
LOC: JER 08:10
DX: U07.1 COVID-19 (principal)
CPT/HCPCS: 0241U-QW; 99283-25

== ENCOUNTER 2022-04-16 22:53 | Emergency (ER) | payer MEDICARE, OTHER ==
[2022-04-16 22:58] VITALS: BP 126/77; PULSE 78; RESP 19; TEMP 98.6; BMI 26.4
[2022-04-16] MEDS ORDERED: AMOX TR/POT CLAV 875MG/125MG TABLETS (FP) PO ONE (23:23)
[2022-04-16] MEDS ORDERED: AMOX TR/POT CLAV 875MG/125MG TABLETS (FP) ONE (23:50)
== END 2022-04-17 00:06 | disposition home or self-care (01) ==
LOC: JER 22:53
DX: J01.90 Acute sinusitis, unspecified (principal)
CPT/HCPCS: 0241U-QW; 99283-25

== ENCOUNTER 2022-05-22 08:47 | Emergency (ER) | payer MEDICARE, OTHER ==
[2022-05-22 09:05] VITALS: RESP 18; BMI 26.6
[2022-05-22] MEDS ORDERED: METOCLOPRAMIDE HCL INJECTION 10 MG/2 ML VIAL IVPUSH ONE (09:20)
[2022-05-22] MEDS ORDERED: SODIUM CHLORIDE 1,000 ML IV ONE (09:20)
[2022-05-22] MEDS ORDERED: ACETAMINOPHEN 1000 MG/100 ML BAG IVPB ONE (09:20)
[2022-05-22] MEDS ORDERED: ACETAMINOPHEN INJECTION 100 ML IVPB ONE (09:25)
[2022-05-22] MEDS ORDERED: METOCLOPRAMIDE HCL INJECTION 10 MG/2 ML VIAL ONE (09:25)
[2022-05-22 10:17] LABS: EOS % 1.7 % (0-4.5); HEMATOCRIT 40.3 % (32.4-45.2); HEMOGLOBIN 13.6 GM/dL (10.7-15.3); MCH 31.6 pg (25.7-33.7); MCHC 33.6 g/dl (32.0-36.0); MEAN CELL VOLUME 94.1 fl (80-96); MEAN PLT VOLUME 8.3 fl (7.5-11.1); MONO % 6.8 % (3.8-10.2); NEUT % 70.5 % (42.8-82.8); PLATELET COUNT 219 10^3/uL (134-434); RBC 4.29 M/mm3 (3.60-5.2); RDW 15.8 % (11.6-15.6); WHITE BLOOD COUNT 6.6 K/mm3 (4.0-10.0)
[2022-05-22 10:22] LABS: CALCIUM 9.1 mg/dL (8.5-10.1)
[2022-05-22 10:24] LABS: ALBUMIN 3.4 g/dl (3.4-5.0); BLOOD UREA NITROGEN 13.1 mg/dL (7-18)
[2022-05-22 10:26] LABS: CREATININE 0.6 mg/dL (0.55-1.3)
[2022-05-22 10:28] LABS: BILIRUBIN,TOTAL 0.4 mg/dL (0.2-1); TOT PROT 6.8 g/dl (6.4-8.2)
[2022-05-22] MEDS ORDERED: KETOROLAC TROMETHAMINE 30 MG/1 ML VIAL IVPUSH ONE (11:21)
[2022-05-22] MEDS ORDERED: KETOROLAC TROMETHAMINE 15 MG/ML VIAL ONE (11:29)
[2022-05-22 12:19] VITALS: BP 108/57; PULSE 80; TEMP 98.2
== END 2022-05-22 12:24 | disposition home or self-care (01) ==
LOC: JER 08:47
PROC: 3E0333Z Introduction of Anti-inflammatory into Peripheral Vein, Percutaneous Approach (ICD-10-PCS; principal; 2022-05-22)
PROC: 3E0333Z Introduction of Anti-inflammatory into Peripheral Vein, Percutaneous Approach (ICD-10-PCS; 2022-05-22)
PROC: 3E033GC Introduction of Other Therapeutic Substance into Peripheral Vein, Percutaneous Approach (ICD-10-PCS; 2022-05-22)
PROC: 3E0337Z Introduction of Electrolytic and Water Balance Substance into Peripheral Vein, Percutaneous Approach (ICD-10-PCS; 2022-05-22)
DX: G43.809 Other migraine, not intractable, without status migrainosus (principal)
CPT/HCPCS: 36415; 80053; 85025; 99284-25

== ENCOUNTER 2022-05-22 21:19 | Emergency (ER) | payer MEDICARE, OTHER ==
[2022-05-22 21:40] VITALS: BP 122/77; PULSE 73; RESP 18; TEMP 98.2; BMI 26.6
[2022-05-22] MEDS ORDERED: ACETAMINOPHEN/CAFFEINE/BUTALBITAL 1 TAB PO ONE (22:50)
[2022-05-22] MEDS ORDERED: ACETAMINOPHEN/CAFFEINE/BUTALBITAL 1 TAB ONE (22:52)
== END 2022-05-22 23:01 | disposition home or self-care (01) ==
LOC: JER 21:19
DX: G43.909 Migraine, unspecified, not intractable, without status migrainosus (principal)
CPT/HCPCS: 99283-25

== ENCOUNTER 2022-05-23 02:58 | Observation (INO) | payer MEDICARE, OTHER ==
[2022-05-23] MEDS ORDERED: methylPREDNISolone NA SUCC 125 MG/2 ML VIAL IVPB ONE (03:26)
[2022-05-23] MEDS ORDERED: METOCLOPRAMIDE HCL INJECTION 10 MG/2 ML VIAL IVPUSH ONE (03:26)
[2022-05-23] MEDS ORDERED: SODIUM CHLORIDE 0.9% 500 ML INFUS.BAG IV ONE (03:26)
[2022-05-23] MEDS ORDERED: MAGNESIUM SULF 50% (8.12 MEQ/2 ML-1 GM VIAL) IVPB ONE (03:26)
[2022-05-23] MEDS ORDERED: METOCLOPRAMIDE HCL INJECTION 10 MG/2 ML VIAL ONE (03:40)
[2022-05-23] MEDS ORDERED: methylPREDNISolone NA SUCC 125 MG/2 ML VIAL ONE (03:41)
[2022-05-23] MEDS ORDERED: MAGNESIUM SULFATE IN WATER 2 GM/50 ML IVPB IVPB ONE (03:41)
[2022-05-23 04:11] LABS: BASO % 0.7 % (0-2.0); EOS % 1.9 % (0-4.5); HEMATOCRIT 39.6 % (32.4-45.2); HEMOGLOBIN 13.4 GM/dL (10.7-15.3); LYMPH % 22.8 % (8-40); MCH 31.9 pg (25.7-33.7); MCHC 33.7 g/dl (32.0-36.0); MEAN CELL VOLUME 94.6 fl (80-96); MEAN PLT VOLUME 7.5 fl (7.5-11.1); MONO % 6.5 % (3.8-10.2); NEUT % 68.1 % (42.8-82.8); PLATELET COUNT 217 10^3/uL (134-434); RBC 4.19 M/mm3 (3.60-5.2); RDW 15.6 % (11.6-15.6); WHITE BLOOD COUNT 6.6 K/mm3 (4.0-10.0)
[2022-05-23 05:16] LABS: BLOOD UREA NITROGEN 8.8 mg/dL (7-18); CALCIUM 9.5 mg/dL (8.5-10.1)
[2022-05-23 05:17] LABS: ALBUMIN 3.5 g/dl (3.4-5.0)
[2022-05-23 05:20] LABS: CREATININE 0.6 mg/dL (0.55-1.3)
[2022-05-23 05:21] LABS: BILIRUBIN,TOTAL 0.3 mg/dL (0.2-1); TOT PROT 6.8 g/dl (6.4-8.2)
[2022-05-23] MEDS ORDERED: KETOROLAC TROMETHAMINE 15 MG/ML VIAL IVPUSH PRN ×2 (07:14→08:42)
[2022-05-23] MEDS ORDERED: ACETAMINOPHEN 325 MG TABLET (FP) PO PRN (07:14)
[2022-05-23] MEDS ORDERED: ACETAMINOPHEN/CAFFEINE/BUTALBITAL 1 TAB PO PRN ×2 (07:30→07:31)
[2022-05-23] MEDS ORDERED: PROCHLORPERAZINE INJECTION 10 MG/2 ML VIAL IVPB PRN ×2 (08:38→08:41)
[2022-05-23] MEDS ORDERED: PANTOPRAZOLE 40 MG TABLET PO SCH (10:00)
[2022-05-23] MEDS ORDERED: ENOXAPARIN NA (PORCINE) 40 MG/0.4 ML DISP.SYRIN SQ SCH (10:00)
[2022-05-23 12:30] VITALS: BMI 26.7
[2022-05-23 13:38] VITALS: BP 123/60; PULSE 90; RESP 18; TEMP 98.3
== END 2022-05-23 17:01 | disposition home or self-care (01) ==
LOC: JER 02:58 → JERBED 05:08 → J6S 08:32
PROVIDERS: ADMIT Internal Medicine; ATTEND Internal Medicine
PROC: 3E0333Z Introduction of Anti-inflammatory into Peripheral Vein, Percutaneous Approach (ICD-10-PCS; principal; 2022-05-23)
PROC: 3E033GC Introduction of Other Therapeutic Substance into Peripheral Vein, Percutaneous Approach (ICD-10-PCS; 2022-05-23)
PROC: 3E0337Z Introduction of Electrolytic and Water Balance Substance into Peripheral Vein, Percutaneous Approach (ICD-10-PCS; 2022-05-23)
DX: G43.109 Migraine with aura, not intractable, without status migrainosus (principal); K21.9 Gastro-esophageal reflux disease without esophagitis; K76.0 Fatty (change of) liver, not elsewhere classified; I20.9 Angina pectoris, unspecified; Z88.8 Allergy status to other drugs, medicaments and biological substances
CPT/HCPCS: 0241U-QW; 36415; 70450-TC; 80053; 80061; 83036; 85025; 93005; 93010; 96361; 96374; 96375; 96376; 99285-25; G0378

== ENCOUNTER 2022-06-24 07:46 | Emergency (ER) | payer MEDICARE, OTHER ==
[2022-06-24 08:51] VITALS: BP 110/65; PULSE 82; RESP 18; TEMP 98.3; BMI 26.6
[2022-06-24] MEDS ORDERED: ACETAMINOPHEN/CAFFEINE/BUTALBITAL 1 TAB PO ONE (09:18)
[2022-06-24] MEDS ORDERED: ACETAMINOPHEN/CAFFEINE/BUTALBITAL 1 TAB ONE (10:04)
== END 2022-06-24 11:23 | disposition home or self-care (01) ==
LOC: JERFT 07:46 → JER 07:46 → JERFT 11:24
DX: G43.019 Migraine without aura, intractable, without status migrainosus (principal)
CPT/HCPCS: 99283-25

== ENCOUNTER 2022-06-27 07:54 | Emergency (ER) | payer MEDICARE, OTHER ==
[2022-06-27 08:07] VITALS: BP 107/71; PULSE 83; RESP 16; TEMP 98.1; BMI 26.6
[2022-06-27] MEDS ORDERED: METOCLOPRAMIDE HCL INJECTION 10 MG/2 ML VIAL IVPUSH ONE (09:02)
[2022-06-27] MEDS ORDERED: KETOROLAC TROMETHAMINE 15 MG/ML VIAL IVPUSH ONE (09:02)
[2022-06-27] MEDS ORDERED: SODIUM CHLORIDE 0.9% 500 ML INFUS.BAG IV ONE (09:02)
[2022-06-27] MEDS ORDERED: KETOROLAC TROMETHAMINE 15 MG/ML VIAL ONE (09:06)
[2022-06-27] MEDS ORDERED: METOCLOPRAMIDE HCL INJECTION 10 MG/2 ML VIAL ONE (09:06)
== END 2022-06-27 11:03 | disposition home or self-care (01) ==
LOC: JER 07:54
PROC: 3E0333Z Introduction of Anti-inflammatory into Peripheral Vein, Percutaneous Approach (ICD-10-PCS; principal; 2022-06-27)
PROC: 3E033GC Introduction of Other Therapeutic Substance into Peripheral Vein, Percutaneous Approach (ICD-10-PCS; 2022-06-27)
DX: G43.909 Migraine, unspecified, not intractable, without status migrainosus (principal)
CPT/HCPCS: 99284-25

== ENCOUNTER 2023-04-22 07:02 | Emergency (ER) | payer OTHER ==
[2023-04-22 07:11] VITALS: BP 138/80; PULSE 74; RESP 18; TEMP 98.1; BMI 24.3
== END 2023-04-22 08:06 | disposition home or self-care (01) ==
LOC: JER 07:02
DX: R09.89 Other specified symptoms and signs involving the circulatory and respiratory systems (principal)
CPT/HCPCS: 99282-25

== ENCOUNTER 2023-04-26 14:45 | Emergency (ER) | payer OTHER ==
[2023-04-26 15:24] VITALS: BP 139/68; PULSE 85; RESP 17; TEMP 98.8; BMI 25.8
[2023-04-26] MEDS ORDERED: LACTULOSE 20 GM/30 ML UDC (FOR ORAL USE ONLY) PO ONE (16:04)
[2023-04-26] MEDS ORDERED: LACTULOSE 20 GM/30 ML UDC (FOR ORAL USE ONLY) ONE (16:11)
[2023-04-26] MEDS ORDERED: SODIUM PHOSPHATE/NA BIPHOS 133 ML ENEMA PR ONE (18:25)
== END 2023-04-26 19:37 | disposition home or self-care (01) ==
LOC: JER 14:45
DX: K59.00 Constipation, unspecified (principal); R10.84 Generalized abdominal pain
CPT/HCPCS: 99283-25

== ENCOUNTER 2023-06-20 11:03 | Observation (INO) | payer OTHER ==
[2023-06-20] MEDS ORDERED: SODIUM CHLORIDE 1,000 ML IV STA (12:30)
[2023-06-20 13:30] LABS: BASO % 1.1 % (0-2.0); EOS % 3.2 % (0-4.5); HEMATOCRIT 40.4 % (32.4-45.2); HEMOGLOBIN 13.6 GM/dL (10.7-15.3); LYMPH % 25.6 % (8-40); MCH 29.7 pg (25.7-33.7); MCHC 33.8 g/dl (32.0-36.0); MEAN PLT VOLUME 9.3 fl (7.5-11.1); MONO % 7.2 % (3.8-10.2); NEUT % 62.9 % (42.8-82.8); PLATELET COUNT 282 10^3/uL (134-434); RBC 4.59 M/mm3 (3.60-5.2); RDW 14.9 % (11.6-15.6)
[2023-06-20 13:37] LABS: INR 1.1 (0.83-1.09); PROTHROMBIN TIME (PATIENT) 12.8 SEC (9.7-13.0)
[2023-06-20 13:58] LABS: POTASSIUM 4.3 mmol/L (3.5-5.1)
[2023-06-20 13:59] LABS: CALCIUM 9.7 mg/dL (8.5-10.1)
[2023-06-20 14:00] LABS: BLOOD UREA NITROGEN 12.9 mg/dL (7-18)
[2023-06-20 14:01] LABS: ALBUMIN 3.8 g/dl (3.4-5.0)
[2023-06-20 14:04] LABS: BILIRUBIN,TOTAL 0.5 mg/dL (0.2-1); CREATININE 0.7 mg/dL (0.55-1.3)
[2023-06-20 14:05] LABS: TOT PROT 7.5 g/dl (6.4-8.2)
[2023-06-20] MEDS ORDERED: ASPIRIN 81 MG CHEWABLE TABLETS PO ONE (14:35)
[2023-06-20] MEDS ORDERED: ASPIRIN 81 MG CHEWABLE TABLETS ONE (14:56)
[2023-06-20] MEDS ORDERED: ALBUTEROL SO4 HFA INHALER IH PRN (16:54)
[2023-06-20] MEDS ORDERED: metoPROLOL SUCCINATE 25 MG TAB.SR.24H (FP) PO ONE (16:55)
[2023-06-20] MEDS ORDERED: ENOXAPARIN NA (PORCINE) 40 MG/0.4 ML DISP.SYRIN SQ ONE (16:56)
[2023-06-20] MEDS: ENOXAPARIN NA (PORCINE) 40 MG/0.4 ML DISP.SYRIN SQ SCH (18:26)
[2023-06-20] MEDS: metoPROLOL SUCCINATE 25 MG TAB.SR.24H (FP) PO SCH (18:27)
[2023-06-21 00:01] VITALS: BMI 26.7
[2023-06-21] MEDS ORDERED: ACETAMINOPHEN 325 MG TABLET (FP) PO ONE (00:58)
[2023-06-21 07:35] LABS: BASO % 1.2 % (0-2.0); EOS % 3.5 % (0-4.5); HEMATOCRIT 36.9 % (32.4-45.2); HEMOGLOBIN 12.3 GM/dL (10.7-15.3); LYMPH % 32.9 % (8-40); MCH 29.6 pg (25.7-33.7); MCHC 33.3 g/dl (32.0-36.0); MEAN CELL VOLUME 88.8 fl (80-96); MEAN PLT VOLUME 9.4 fl (7.5-11.1); MONO % 6.4 % (3.8-10.2); PLATELET COUNT 240 10^3/uL (134-434); RBC 4.16 M/mm3 (3.60-5.2); RDW 14.3 % (11.6-15.6); WHITE BLOOD COUNT 5.4 K/mm3 (4.0-10.0)
[2023-06-21 07:38] LABS: POTASSIUM 3.8 mmol/L (3.5-5.1)
[2023-06-21 07:47] LABS: ALBUMIN 3.5 g/dl (3.4-5.0); BLOOD UREA NITROGEN 13.8 mg/dL (7-18); MAGNESIUM 1.8 mg/dL (1.8-2.4)
[2023-06-21 07:50] LABS: CREATININE 0.7 mg/dL (0.55-1.3); PHOSPHOROUS 3.6 mg/dL (2.5-4.9)
[2023-06-21 07:52] LABS: TOT PROT 6.5 g/dl (6.4-8.2)
[2023-06-21] MEDS ORDERED: ACETAMINOPHEN 325 MG TABLET (FP) PO PRN (10:23)
[2023-06-21] MEDS: ASPIRIN 81 MG CHEWABLE TABLETS PO SCH (10:42)
[2023-06-21] MEDS: PANTOPRAZOLE 40 MG TABLET PO SCH (10:42)
[2023-06-21] MEDS: metoPROLOL SUCCINATE 25 MG TAB.SR.24H (FP) PO SCH (10:42)
[2023-06-21] MEDS: ENOXAPARIN NA (PORCINE) 40 MG/0.4 ML DISP.SYRIN SQ SCH (11:51)
[2023-06-21] MEDS ORDERED: SUMAtriptan SUCCINATE 50 MG TABLET PO ONE (14:15)
[2023-06-21] MEDS ORDERED: RIZATRIPTAN 10 MG PO ONE (14:45)
[2023-06-21] MEDS ORDERED: ATORVASTATIN CA 80 MG TABLET (FP) PO SCH (22:00)
[2023-06-22 05:55] VITALS: RESP 18
[2023-06-22 09:46] LABS: HEMATOCRIT 41.4 % (32.4-45.2); HEMOGLOBIN 13.8 GM/dL (10.7-15.3); MCH 29.7 pg (25.7-33.7); MCHC 33.4 g/dl (32.0-36.0); MEAN PLT VOLUME 9.2 fl (7.5-11.1); PLATELET COUNT 248 10^3/uL (134-434); RBC 4.65 M/mm3 (3.60-5.2); RDW 14.3 % (11.6-15.6)
[2023-06-22 10:30] LABS: POTASSIUM 4.2 mmol/L (3.5-5.1)
[2023-06-22] MEDS: REGADENOSON 0.4 MG/5 ML PRE-FILLED SYRINGE IVPUSH ONE ×2 (10:40→11:13)
[2023-06-22] MEDS ORDERED: REGADENOSON 0.4 MG/5 ML PRE-FILLED SYRINGE IVPUSH ONE (10:42)
[2023-06-22 10:50] LABS: ALBUMIN 3.7 g/dl (3.4-5.0); BLOOD UREA NITROGEN 11.2 mg/dL (7-18); CALCIUM 9.6 mg/dL (8.5-10.1); MAGNESIUM 2.1 mg/dL (1.8-2.4)
[2023-06-22 10:53] LABS: CREATININE 0.7 mg/dL (0.55-1.3); PHOSPHOROUS 3.6 mg/dL (2.5-4.9)
[2023-06-22 10:55] LABS: BILIRUBIN,TOTAL 0.7 mg/dL (0.2-1); TOT PROT 7.3 g/dl (6.4-8.2)
[2023-06-22] MEDS: ENOXAPARIN NA (PORCINE) 40 MG/0.4 ML DISP.SYRIN SQ SCH (12:28)
[2023-06-22] MEDS: PANTOPRAZOLE 40 MG TABLET PO SCH (13:23)
[2023-06-22] MEDS: ASPIRIN 81 MG CHEWABLE TABLETS PO SCH (13:23)
[2023-06-22 15:26] VITALS: BP 111/72; PULSE 79; TEMP 97.7
== END 2023-06-22 15:52 | disposition home or self-care (01) ==
LOC: JER 11:03 → JERFT 11:03 → JERBED 14:40 → J4S 22:13
PROVIDERS: ADMIT Internal Medicine; ATTEND Internal Medicine
PROC: 3E033GC Introduction of Other Therapeutic Substance into Peripheral Vein, Percutaneous Approach (ICD-10-PCS; principal; 2023-06-20)
DX: I21.4 Non-ST elevation (NSTEMI) myocardial infarction (principal); G43.909 Migraine, unspecified, not intractable, without status migrainosus; K21.9 Gastro-esophageal reflux disease without esophagitis; K76.0 Fatty (change of) liver, not elsewhere classified; J45.909 Unspecified asthma, uncomplicated; I20.9 Angina pectoris, unspecified; M19.90 Unspecified osteoarthritis, unspecified site; G89.29 Other chronic pain; M54.17 Radiculopathy, lumbosacral region; Z88.8 Allergy status to other drugs, medicaments and biological substances
CPT/HCPCS: 0241U-QW; 36415; 71046-TC-FY; 78452-TC; 80053; 80061; 83036; 83735; 84100; 84439; 84443; 84484; 85025; 85027; 85610; 85730; 86850; 86900; 86901; 93005; 93010; 93017; 93306-TC; 99285-25; A9502; G0378; J2785

== ENCOUNTER 2023-07-22 22:45 | Emergency (ER) | payer OTHER ==
[2023-07-22 22:55] VITALS: BP 110/66; PULSE 80; RESP 18; TEMP 98.1; BMI 26.6
[2023-07-22] MEDS ORDERED: MAG HYDROX/AL HYDROX/SIMETH 30 ML UNIT-DOSE CUP PO ONE (23:10)
[2023-07-22] MEDS ORDERED: MAG HYDROX/AL HYDROX/SIMETH 30 ML UNIT-DOSE CUP ONE (23:19)
[2023-07-22] MEDS ORDERED: LACTULOSE 20 GM/30 ML UDC (FOR ORAL USE ONLY) PO ONE (23:25)
[2023-07-22] MEDS ORDERED: LACTULOSE 20 GM/30 ML UDC (FOR ORAL USE ONLY) ONE (23:33)
[2023-07-22 23:37] LABS: PH,URINE 6.5 (5.0-8.0); URINE APPEARANCE CLEAR; URINE BILIRUBIN NEGATIVE (NEGATIVE); URINE COLOR YELLOW; URINE GLUCOSE (UA) NEGATIVE (NEGATIVE); URINE KETONE NEGATIVE (NEGATIVE); URINE LEUK ESTERASE NEGATIVE (NEGATIVE); URINE NITRITE NEGATIVE (NEGATIVE); URINE PROTEIN NEGATIVE (NEGATIVE); URINE UROBILINOGEN 0.2 mg/dL (0.2-1.0)
== END 2023-07-22 23:55 | disposition home or self-care (01) ==
LOC: JER 22:45
DX: R10.31 Right lower quadrant pain (principal); K59.00 Constipation, unspecified; R10.32 Left lower quadrant pain; R06.02 Shortness of breath; R30.0 Dysuria; M79.10 Myalgia, unspecified site
CPT/HCPCS: 81003; 87086; 93005; 93010; 99284-25

== ENCOUNTER 2023-09-11 19:34 | Day surgery (SDC) | payer MEDICARE, OTHER ==
[2023-09-11] MEDS ORDERED: SODIUM CHLORIDE 0.9% 500 ML INFUS.BAG IV ONE (19:49)
[2023-09-11] MEDS ORDERED: FAMOTIDINE 20 MG/50 ML IVPB 20 MG/50 ML MG IVPB ONE ×3 (19:49→20:15)
[2023-09-11] MEDS ORDERED: ONDANSETRON 4 MG/2 ML VIAL IVPB ONE (19:49)
[2023-09-11] MEDS ORDERED: morphine CARPU-JECT 4 MG/1 ML DISP.SYRIN IVPUSH ONE (20:13)
[2023-09-11] MEDS ORDERED: ONDANSETRON 4 MG/2 ML VIAL IVPUSH ONE (20:13)
[2023-09-11] MEDS ORDERED: SODIUM CHLORIDE 1,000 ML IV STA (20:13)
[2023-09-11] MEDS ORDERED: ONDANSETRON 4 MG/2 ML VIAL ONE (20:15)
[2023-09-11] MEDS ORDERED: morphine SULFATE 4 MG/ML VIAL ONE (20:50)
[2023-09-11 21:05] LABS: BASO % 0.9 % (0-2.0); HEMATOCRIT 41.5 % (32.4-45.2); HEMOGLOBIN 13.8 GM/dL (10.7-15.3); LYMPH % 17.8 % (8-40); MCH 29.4 pg (25.7-33.7); MCHC 33.2 g/dl (32.0-36.0); MEAN CELL VOLUME 88.4 fl (80-96); MEAN PLT VOLUME 8.4 fl (7.5-11.1); MONO % 5.3 % (3.8-10.2); PLATELET COUNT 225 10^3/uL (134-434); RBC 4.69 M/mm3 (3.60-5.2); RDW 16.1 % (11.6-15.6); WHITE BLOOD COUNT 8.6 K/mm3 (4.0-10.0)
[2023-09-11 21:11] LABS: INR 1.03 (0.83-1.09); PROTHROMBIN TIME (PATIENT) 11.9 SEC (9.7-13.0)
[2023-09-11 21:13] LABS: ACTIVATED PTT 33.6 SECONDS (25.2-36.5)
[2023-09-11 21:23] LABS: POTASSIUM 4.3 mmol/L (3.5-5.1)
[2023-09-11 21:25] LABS: CALCIUM 9.7 mg/dL (8.5-10.1)
[2023-09-11 21:26] LABS: ALBUMIN 4.4 g/dl (3.4-5.0); BLOOD UREA NITROGEN 13.8 mg/dL (7-18)
[2023-09-11 21:29] LABS: CREATININE 0.8 mg/dL (0.55-1.3)
[2023-09-11 21:31] LABS: BILIRUBIN,TOTAL 0.4 mg/dL (0.2-1); TOT PROT 8.1 g/dl (6.4-8.2)
[2023-09-12] MEDS ORDERED: ACETAMINOPHEN 1000 MG/100 ML BAG IVPB ONE (00:01)
[2023-09-12] MEDS ORDERED: morphine CARPU-JECT 2 MG/1 ML DISP.SYRIN IVPUSH ONE ×3 (00:04→03:36)
[2023-09-12] MEDS ORDERED: ACETAMINOPHEN INJECTION 100 ML IVPB ONE (00:23)
[2023-09-12] MEDS ORDERED: MAG HYDROX/AL HYDROX/SIMETH 30 ML UNIT-DOSE CUP PO ONE (02:23)
[2023-09-12] MEDS ORDERED: ONDANSETRON 4 MG/2 ML VIAL IVPUSH ONE (02:24)
[2023-09-12] MEDS ORDERED: MAG HYDROX/AL HYDROX/SIMETH 30 ML UNIT-DOSE CUP ONE (02:33)
[2023-09-12] MEDS ORDERED: ONDANSETRON 4 MG/2 ML VIAL ONE ×3 (02:33→11:52)
[2023-09-12] MEDS ORDERED: LACTATED RINGERS SOLUTION 1,000 ML/1,000 ML INFUS.BAG IV SCH (03:00)
[2023-09-12] MEDS ORDERED: KETOROLAC TROMETHAMINE 15 MG/ML VIAL IVPUSH PRN ×2 (03:41→12:19)
[2023-09-12] MEDS ORDERED: ONDANSETRON 4 MG/2 ML VIAL IVPUSH PRN ×4 (03:44→12:19)
[2023-09-12] MEDS ORDERED: KETOROLAC TROMETHAMINE 15 MG/ML VIAL ONE (04:32)
[2023-09-12 07:21] LABS: POTASSIUM 4.1 mmol/L (3.5-5.1)
[2023-09-12 07:23] LABS: CALCIUM 9.1 mg/dL (8.5-10.1)
[2023-09-12 07:24] LABS: ALBUMIN 3.7 g/dl (3.4-5.0); BLOOD UREA NITROGEN 9.7 mg/dL (7-18)
[2023-09-12 07:27] LABS: CREATININE 0.7 mg/dL (0.55-1.3)
[2023-09-12 07:28] LABS: BILIRUBIN,TOTAL 0.5 mg/dL (0.2-1)
[2023-09-12 07:29] LABS: TOT PROT 7.1 g/dl (6.4-8.2)
[2023-09-12 07:31] LABS: BASO % 0.8 % (0-2.0); EOS % 0.5 % (0-4.5); HEMATOCRIT 40.2 % (32.4-45.2); HEMOGLOBIN 13.4 GM/dL (10.7-15.3); MCH 29.5 pg (25.7-33.7); MCHC 33.3 g/dl (32.0-36.0); MEAN CELL VOLUME 88.7 fl (80-96); MEAN PLT VOLUME 9.1 fl (7.5-11.1); MONO % 6.9 % (3.8-10.2); NEUT % 73.8 % (42.8-82.8); PLATELET COUNT 206 10^3/uL (134-434); RBC 4.53 M/mm3 (3.60-5.2); RDW 15.6 % (11.6-15.6)
[2023-09-12] MEDS ORDERED: ACETAMINOPHEN 1000 MG/100 ML BAG IVPB PRN (07:52)
[2023-09-12] MEDS ORDERED: SUCCINYLCHOLINE CHLORIDE 200 MG/10 ML SYRINGE ONE (09:40)
[2023-09-12] MEDS ORDERED: PROPOFOL 20 ML ONE (09:40)
[2023-09-12] MEDS ORDERED: LIDOCAINE HCL/PF 1% SDV 5ML VIAL ONE (09:50)
[2023-09-12 09:59] VITALS: BMI 26.0
[2023-09-12] MEDS ORDERED: LACTATED RINGERS SOLUTION 1,000 ML IV SCH (10:00)
[2023-09-12] MEDS ORDERED: PANTOPRAZOLE SODIUM 40 MG VIAL IVPUSH SCH (10:00)
[2023-09-12] MEDS ORDERED: ENOXAPARIN NA (PORCINE) 40 MG/0.4 ML DISP.SYRIN SQ SCH (10:00)
[2023-09-12] MEDS ORDERED: MIDAZOLAM HCL 2 MG/2 ML SINGLE DOSE VIAL ONE (10:08)
[2023-09-12 11:00] LABS: URINE APPEARANCE CLEAR; URINE BILIRUBIN NEGATIVE (NEGATIVE); URINE COLOR YELLOW; URINE GLUCOSE (UA) NEGATIVE (NEGATIVE); URINE KETONE TRACE (NEGATIVE)
[2023-09-12 11:01] LABS: PH,URINE 6.5 (5.0-8.0); URINE LEUK ESTERASE NEGATIVE (NEGATIVE); URINE NITRITE NEGATIVE (NEGATIVE); URINE PROTEIN NEGATIVE (NEGATIVE); URINE UROBILINOGEN 0.2 mg/dL (0.2-1.0)
[2023-09-12] MEDS ORDERED: ROCURONIUM BROMIDE 50 MG/5 ML SYRINGE ONE (11:09)
[2023-09-12] MEDS ORDERED: ceFAZolin SODIUM 1 GM VIAL ONE (11:12)
[2023-09-12 11:13] LABS: EPI CELLS 16 /uL (0-25.1); HYALINE CASTS 0 /uL (0-3.1); URINE BACTERIA 12 /uL (0-1359); URINE RBC 18 /uL (0-23.9); URINE WBC 15 /uL (0-25.8)
[2023-09-12] MEDS ORDERED: ceFAZolin SODIUM 1 GM VIAL IVPB ONE (11:17)
[2023-09-12] MEDS ORDERED: DEXAMETHASONE SOD PHOSPHATE 4 MG/1 ML VIAL ONE (11:17)
[2023-09-12] MEDS ORDERED: LIDOCAINE 1% P/F 10 MG/ML VIAL INF ONE (11:17)
[2023-09-12] MEDS ORDERED: BUPIVACAINE HCL/PF 0.5% (5MG/ML) 10 ML VIAL IJ ONE (11:17)
[2023-09-12] MEDS ORDERED: GLYCOPYRROLATE 0.2 MG/1 ML VIAL ONE (11:43)
[2023-09-12] MEDS ORDERED: NEOSTIGMINE METHYLSULFATE 0.5 MG/1 ML - 10 ML MDV ONE (11:43)
[2023-09-12] MEDS: LACTATED RINGERS SOLUTION 1,000 ML/1,000 ML INFUS.BAG IV SCH (12:25)
[2023-09-12] MEDS: ACETAMINOPHEN 1000 MG/100 ML BAG IVPB PRN (16:15)
[2023-09-13] MEDS: ACETAMINOPHEN 1000 MG/100 ML BAG IVPB PRN (03:22)
[2023-09-13] MEDS: LACTATED RINGERS SOLUTION 1,000 ML/1,000 ML INFUS.BAG IV SCH (06:24)
[2023-09-13] MEDS ORDERED: PATIENT'S OWN MEDICATION (NON-FORMULARY) (Rizatriptan Benzoate [Rizatriptan] 10 MG Tablet) PO SCH ×2 (07:30)
[2023-09-13] MEDS ORDERED: SUMATRIPTAN SUCCINATE 6 MG/0.5 ML VIAL SQ ONE (08:00)
[2023-09-13 09:35] VITALS: BP 128/72; PULSE 80; RESP 17; TEMP 97.6
[2023-09-13 09:40] LABS: BASO % 0.4 % (0-2.0); HEMATOCRIT 35.8 % (32.4-45.2); LYMPH % 21.5 % (8-40); MCH 29.6 pg (25.7-33.7); MCHC 33.5 g/dl (32.0-36.0); MEAN CELL VOLUME 88.4 fl (80-96); MEAN PLT VOLUME 8.7 fl (7.5-11.1); MONO % 6.6 % (3.8-10.2); NEUT % 70.5 % (42.8-82.8); PLATELET COUNT 183 10^3/uL (134-434); RBC 4.05 M/mm3 (3.60-5.2); RDW 16.2 % (11.6-15.6); WHITE BLOOD COUNT 8.2 K/mm3 (4.0-10.0)
[2023-09-13] MEDS ORDERED: PANTOPRAZOLE 40 MG TABLET PO SCH (10:00)
[2023-09-13] MEDS ORDERED: PANTOPRAZOLE SODIUM 40 MG VIAL IVPUSH SCH (10:00)
[2023-09-13 10:03] LABS: POTASSIUM 3.8 mmol/L (3.5-5.1)
[2023-09-13 10:12] LABS: BILIRUBIN,TOTAL 0.6 mg/dL (0.2-1); TOT PROT 6.3 g/dl (6.4-8.2)
[2023-09-13 10:16] LABS: BLOOD UREA NITROGEN 6.4 mg/dL (7-18)
[2023-09-13 10:18] LABS: ALBUMIN 3.2 g/dl (3.4-5.0); MAGNESIUM 1.9 mg/dL (1.8-2.4)
[2023-09-13 10:21] LABS: PHOSPHOROUS 2.7 mg/dL (2.5-4.9)
[2023-09-13 10:22] LABS: CREATININE 0.6 mg/dL (0.55-1.3)
[2023-09-13] MEDS ORDERED: SIMETHICONE 80 MG TAB.CHEW (FP) PO PRN (10:23)
== END 2023-09-13 12:44 | disposition home or self-care (01) ==
LOC: JER 19:34 → UNDOADMIN 09-12 02:25 → JERBED 09-12 02:25 → J5S 09-12 06:19 → JERBED 09-12 06:19 → JASUSAT 09-12 10:23 → SUATTDRO 09-13 10:23 → JASUSAT 09-13 10:23 → J5S 09-13 10:40 → JASUSAT 09-13 12:44 → J5S 09-13 12:44
PROC: 0YU70JZ Supplement Right Femoral Region with Synthetic Substitute, Open Approach (ICD-10-PCS; principal; 2023-09-12 10:00)
DX: K41.30 Unilateral femoral hernia, with obstruction, without gangrene, not specified as recurrent (principal)
CPT/HCPCS: 36415; 71045-TC-FY; 74177-TC; 80053; 81003; 83036; 83690; 83735; 84100; 84484; 85025; 85610; 85730; 87086; 93005; 93010; 94010; 94760; 99291; 99292; C1781; J0131; Q9967

== ENCOUNTER 2023-09-14 22:35 | Emergency (ER) | payer OTHER ==
[2023-09-14 22:47] VITALS: RESP 18; BMI 26.1
[2023-09-14] MEDS ORDERED: SODIUM CHLORIDE 1,000 ML IV STA (23:40)
[2023-09-14] MEDS ORDERED: ACETAMINOPHEN 1000 MG/100 ML BAG IVPB ONE (23:40)
[2023-09-14] MEDS ORDERED: FAMOTIDINE 20 MG/50 ML IVPB 20 MG/50 ML MG IVPB ONE ×2 (23:40→23:47)
[2023-09-15 00:29] LABS: EOS % 1.7 % (0-4.5); HEMATOCRIT 37.9 % (32.4-45.2); HEMOGLOBIN 12.6 GM/dL (10.7-15.3); LYMPH % 13.1 % (8-40); MCH 29.5 pg (25.7-33.7); MCHC 33.2 g/dl (32.0-36.0); MEAN CELL VOLUME 88.8 fl (80-96); MEAN PLT VOLUME 8.9 fl (7.5-11.1); MONO % 5.3 % (3.8-10.2); NEUT % 78.9 % (42.8-82.8); PLATELET COUNT 192 10^3/uL (134-434); RBC 4.27 M/mm3 (3.60-5.2); RDW 16.2 % (11.6-15.6); WHITE BLOOD COUNT 8.9 K/mm3 (4.0-10.0)
[2023-09-15] MEDS ORDERED: ACETAMINOPHEN INJECTION 100 ML IVPB ONE (00:29)
[2023-09-15] MEDS ORDERED: MAG HYDROX/AL HYDROX/SIMETH 30 ML UNIT-DOSE CUP ONE (00:31)
[2023-09-15] MEDS ORDERED: MAG HYDROX/AL HYDROX/SIMETH 30 ML UNIT-DOSE CUP PO ONE (00:32)
[2023-09-15 00:42] LABS: INR 1.12 (0.83-1.09)
[2023-09-15 00:45] LABS: ACTIVATED PTT 34.3 SECONDS (25.2-36.5)
[2023-09-15 00:59] LABS: ALBUMIN 3.7 g/dl (3.4-5.0)
[2023-09-15 01:00] LABS: BLOOD UREA NITROGEN 7.1 mg/dL (7-18)
[2023-09-15 01:03] LABS: CREATININE 0.7 mg/dL (0.55-1.3)
[2023-09-15 01:04] LABS: BILIRUBIN,TOTAL 0.7 mg/dL (0.2-1); TOT PROT 6.8 g/dl (6.4-8.2)
[2023-09-15 01:51] LABS: PH,URINE 6.5 (5.0-8.0); URINE APPEARANCE CLEAR; URINE BILIRUBIN NEGATIVE (NEGATIVE); URINE COLOR YELLOW; URINE GLUCOSE (UA) NEGATIVE (NEGATIVE); URINE KETONE NEGATIVE (NEGATIVE); URINE LEUK ESTERASE NEGATIVE (NEGATIVE); URINE NITRITE NEGATIVE (NEGATIVE); URINE PROTEIN NEGATIVE (NEGATIVE); URINE UROBILINOGEN 0.2 mg/dL (0.2-1.0)
[2023-09-15 03:50] VITALS: BP 138/81; PULSE 76; TEMP 98.1
== END 2023-09-15 03:50 | disposition home or self-care (01) ==
LOC: JER 22:35
PROC: 3E033GC Introduction of Other Therapeutic Substance into Peripheral Vein, Percutaneous Approach (ICD-10-PCS; principal; 2023-09-15)
PROC: 3E033NZ Introduction of Analgesics, Hypnotics, Sedatives into Peripheral Vein, Percutaneous Approach (ICD-10-PCS; 2023-09-15)
DX: R10.13 Epigastric pain (principal); R14.0 Abdominal distension (gaseous)
CPT/HCPCS: 36415; 74177-TC; 80053; 81003; 83605; 85025; 85610; 85730; 86850; 86900; 86901; 87086; 93005; 93010; 96365; 96375; 99285-25; J0131; Q9967

== ENCOUNTER 2023-11-04 19:22 | Emergency (ER) | payer OTHER ==
[2023-11-04 19:30] VITALS: BP 131/72; PULSE 68; RESP 18; TEMP 98.6; BMI 25.8
[2023-11-04] MEDS ORDERED: ACETAMINOPHEN INJECTION 100 ML IVPB ONE (20:25)
[2023-11-04] MEDS ORDERED: METOCLOPRAMIDE HCL INJECTION 10 MG/2 ML VIAL ONE (20:25)
[2023-11-04] MEDS ORDERED: KETOROLAC TROMETHAMINE 15 MG/ML VIAL ONE (20:59)
[2023-11-04] MEDS: KETOROLAC TROMETHAMINE 15 MG/ML VIAL IVPUSH ONE (21:10)
[2023-11-04] MEDS: METOCLOPRAMIDE HCL INJECTION 10 MG/2 ML VIAL IVPUSH ONE (21:11)
[2023-11-04] MEDS: SODIUM CHLORIDE 0.9% 500 ML INFUS.BAG IV ONE (21:11)
[2023-11-04] MEDS: ACETAMINOPHEN 1000 MG/100 ML BAG IVPB ONE (21:11)
== END 2023-11-04 22:24 | disposition home or self-care (01) ==
LOC: JER 19:22
PROC: 3E030NZ Introduction of Analgesics, Hypnotics, Sedatives into Peripheral Vein, Open Approach (ICD-10-PCS; principal; 2023-11-04)
PROC: 3E0303Z Introduction of Anti-inflammatory into Peripheral Vein, Open Approach (ICD-10-PCS; 2023-11-04)
PROC: 3E030GC Introduction of Other Therapeutic Substance into Peripheral Vein, Open Approach (ICD-10-PCS; 2023-11-04)
DX: G43.909 Migraine, unspecified, not intractable, without status migrainosus (principal)
CPT/HCPCS: 96374; 96375; 99284-25; J0131

== ENCOUNTER 2023-12-11 08:57 | Emergency (ER) | payer OTHER ==
[2023-12-11 09:08] VITALS: BP 106/53; PULSE 76; RESP 18; TEMP 98.1; BMI 25.0
[2023-12-11] MEDS ORDERED: KETOROLAC TROMETHAMINE 30 MG/1 ML VIAL ONE (10:39)
[2023-12-11] MEDS: KETOROLAC TROMETHAMINE 30 MG/1 ML VIAL IM ONE (10:45)
== END 2023-12-11 12:33 | disposition home or self-care (01) ==
LOC: JERFT 08:57
PROC: 3E0233Z Introduction of Anti-inflammatory into Muscle, Percutaneous Approach (ICD-10-PCS; principal; 2023-12-11)
DX: M79.601 Pain in right arm (principal); S46.001A Unspecified injury of muscle(s) and tendon(s) of the rotator cuff of right shoulder, initial encounter; X50.0XXA Overexertion from strenuous movement or load, initial encounter
CPT/HCPCS: 99284-25

== ENCOUNTER 2024-01-13 13:03 | Emergency (ER) | payer OTHER ==
[2024-01-13 13:15] VITALS: BP 119/69; PULSE 78; RESP 18; TEMP 97.8; BMI 25.0
[2024-01-13] MEDS ORDERED: LIDOCAINE 4% PATCH TP ONE (13:37)
[2024-01-13] MEDS ORDERED: KETOROLAC TROMETHAMINE 30 MG/1 ML VIAL ONE (13:37)
[2024-01-13] MEDS ORDERED: ACETAMINOPHEN 500 MG TABLET (FP) ONE (13:38)
[2024-01-13] MEDS: KETOROLAC TROMETHAMINE 30 MG/1 ML VIAL IM ONE (13:44)
[2024-01-13] MEDS: LIDOCAINE 4% PATCH TP ONE (13:45)
[2024-01-13] MEDS: ACETAMINOPHEN 500 MG TABLET (FP) PO ONE (13:45)
[2024-01-13] MEDS ORDERED: LIDOCAINE PATCH REMOVAL MC SCH (22:00)
== END 2024-01-13 13:57 | disposition home or self-care (01) ==
LOC: JERFT 13:03 → JER 13:03 → JERFT 13:57
PROC: 3E0233Z Introduction of Anti-inflammatory into Muscle, Percutaneous Approach (ICD-10-PCS; principal; 2024-01-13)
DX: M62.830 Muscle spasm of back (principal)
CPT/HCPCS: 96372; 99284-25

== ENCOUNTER 2024-03-15 06:35 | Emergency (ER) | payer OTHER ==
[2024-03-15 06:43] VITALS: BP 129/67; PULSE 84; RESP 18; TEMP 98.2; BMI 25.7
[2024-03-15] MEDS ORDERED: ACETAMINOPHEN INJECTION 100 ML IVPB ONE (07:15)
[2024-03-15] MEDS ORDERED: METOCLOPRAMIDE HCL INJECTION 10 MG/2 ML VIAL ONE (07:15)
[2024-03-15] MEDS: ACETAMINOPHEN 1000 MG/100 ML BAG IVPB ONE (07:34)
[2024-03-15] MEDS: METOCLOPRAMIDE HCL INJECTION 10 MG/2 ML VIAL IVPUSH ONE (07:34)
[2024-03-15] MEDS: SODIUM CHLORIDE 1,000 ML IV ONE (07:34)
== END 2024-03-15 08:27 | disposition home or self-care (01) ==
LOC: JER 06:35
PROC: 3E033NZ Introduction of Analgesics, Hypnotics, Sedatives into Peripheral Vein, Percutaneous Approach (ICD-10-PCS; principal; 2024-03-15)
PROC: 3E033GC Introduction of Other Therapeutic Substance into Peripheral Vein, Percutaneous Approach (ICD-10-PCS; 2024-03-15)
PROC: 3E0337Z Introduction of Electrolytic and Water Balance Substance into Peripheral Vein, Percutaneous Approach (ICD-10-PCS; 2024-03-15)
DX: G43.909 Migraine, unspecified, not intractable, without status migrainosus (principal); H53.149 Visual discomfort, unspecified
CPT/HCPCS: 96361; 96374; 96375; 99284-25; J0131

== ENCOUNTER 2024-03-16 01:35 | Emergency (ER) | payer OTHER ==
[2024-03-16 02:06] VITALS: BP 122/68; PULSE 72; RESP 18; TEMP 98.2; BMI 25.8
[2024-03-16] MEDS ORDERED: ACETAMINOPHEN INJECTION 100 ML IVPB ONE (02:23)
[2024-03-16] MEDS ORDERED: METOCLOPRAMIDE HCL INJECTION 10 MG/2 ML VIAL ONE (02:23)
[2024-03-16] MEDS: ACETAMINOPHEN 1000 MG/100 ML BAG IVPB ONE (02:44)
[2024-03-16] MEDS: METOCLOPRAMIDE HCL INJECTION 10 MG/2 ML VIAL IVPUSH ONE (02:44)
[2024-03-16] MEDS: LACTATED RINGERS SOLUTION 1000 ML INFUS.BAG IV ONE (02:44)
[2024-03-16 02:47] LABS: BASO % 0.8 % (0-2.0); EOS % 1.9 % (0-4.5); HEMATOCRIT 38.6 % (32.4-45.2); HEMOGLOBIN 13.2 GM/dL (10.7-15.3); LYMPH % 23.3 % (8-40); MCH 31.2 pg (25.7-33.7); MCHC 34.3 g/dl (32.0-36.0); MEAN PLT VOLUME 8.4 fl (7.5-11.1); MONO % 6.9 % (3.8-10.2); NEUT % 67.1 % (42.8-82.8); PLATELET COUNT 199 10^3/uL (134-434); RBC 4.24 M/mm3 (3.60-5.2); RDW 14.6 % (11.6-15.6); WHITE BLOOD COUNT 6.8 K/mm3 (4.0-10.0)
[2024-03-16 03:10] LABS: POTASSIUM 4.2 mmol/L (3.5-5.1)
[2024-03-16 03:12] LABS: CALCIUM 9.3 mg/dL (8.5-10.1)
[2024-03-16 03:13] LABS: ALBUMIN 3.7 g/dl (3.4-5.0); BLOOD UREA NITROGEN 11.8 mg/dL (7-18)
[2024-03-16 03:16] LABS: CREATININE 0.8 mg/dL (0.55-1.3)
[2024-03-16 03:17] LABS: BILIRUBIN,TOTAL 0.5 mg/dL (0.2-1)
[2024-03-16 03:18] LABS: TOT PROT 6.9 g/dl (6.4-8.2)
[2024-03-16] MEDS ORDERED: DEXAMETHASONE 4 MG TABLET (FP) ONE (04:57)
[2024-03-16] MEDS: DEXAMETHASONE 4 MG TABLET (FP) PO ONE (05:05)
== END 2024-03-16 05:05 | disposition home or self-care (01) ==
LOC: JER 01:35
PROC: 3E033NZ Introduction of Analgesics, Hypnotics, Sedatives into Peripheral Vein, Percutaneous Approach (ICD-10-PCS; principal; 2024-03-16)
PROC: 3E033GC Introduction of Other Therapeutic Substance into Peripheral Vein, Percutaneous Approach (ICD-10-PCS; 2024-03-16)
DX: G43.909 Migraine, unspecified, not intractable, without status migrainosus (principal)
CPT/HCPCS: 36415; 80053; 85025; 96374; 96375; 99284-25; J0131

== ENCOUNTER 2024-07-26 14:51 | Emergency (ER) | payer OTHER ==
[2024-07-26 15:16] VITALS: BP 104/65; PULSE 65; RESP 18; TEMP 97.8; BMI 26.6
[2024-07-26] MEDS ORDERED: KETOROLAC TROMETHAMINE 30 MG/1 ML VIAL ONE (16:25)
[2024-07-26] MEDS: KETOROLAC TROMETHAMINE 30 MG/1 ML VIAL IM ONE (16:31)
[2024-07-26] MEDS ORDERED: DEXAMETHASONE 4 MG TABLET (FP) ONE (17:03)
[2024-07-26] MEDS: DEXAMETHASONE 4 MG TABLET (FP) PO ONE (17:06)
== END 2024-07-26 17:07 | disposition home or self-care (01) ==
LOC: JER 14:51
PROC: 3E0133Z Introduction of Anti-inflammatory into Subcutaneous Tissue, Percutaneous Approach (ICD-10-PCS; principal; 2024-07-26)
DX: R51.9 Headache, unspecified (principal)
CPT/HCPCS: 96372; 99284-25

== ENCOUNTER 2024-10-09 09:40 | Emergency (ER) | payer OTHER ==
[2024-10-09 10:03] VITALS: BP 117/74; PULSE 81; RESP 16; TEMP 98.3; BMI 26.6
[2024-10-09] MEDS ORDERED: ACETAMINOPHEN 500 MG TABLET (FP) ONE (11:14)
[2024-10-09] MEDS ORDERED: LIDOCAINE 4% PATCH TP ONE (11:14)
[2024-10-09] MEDS: ACETAMINOPHEN 500 MG TABLET (FP) PO ONE (11:17)
[2024-10-09] MEDS: LIDOCAINE 5% TOPICAL PATCH TP ONE (11:17)
[2024-10-09] MEDS ORDERED: LIDOCAINE PATCH REMOVAL MC SCH (22:00)
== END 2024-10-09 12:31 | disposition home or self-care (01) ==
LOC: JERFT 09:40
DX: M25.511 Pain in right shoulder (principal); X50.0XXA Overexertion from strenuous movement or load, initial encounter
CPT/HCPCS: 73030-TC-RT-FY; 99283-25